=== PATIENT | male | born 1955 | race Caucasian/White ===

== ENCOUNTER 2020-02-12 11:15 | Outpatient (RCR) | payer MEDICARE ==
[2020-03-08] MEDS ORDERED: MTP25TSR PO (10:40)
[2020-03-08] MEDS ORDERED: SULF1TAB35 PO (10:40)
[2020-03-08] MEDS ORDERED: CLOP75TA28 PO (10:40)
[2020-03-08] MEDS ORDERED: ASPI-1238 PO (10:40)
[2020-03-08] MEDS ORDERED: ATOR80TA76 PO (10:40)
[2020-03-08] MEDS ORDERED: TMSL.4C PO (10:40)
[2020-03-10] MEDS ORDERED: HYOS0.1281 PO (13:09)
[2020-03-10] MEDS ORDERED: SULF1TAB35 PO (13:09)
[2020-03-10] MEDS ORDERED: TRAM50TA3 PO (13:09)
[2020-03-11] MEDS ORDERED: DOCU-238 PO (10:36)
[2020-03-11] MEDS ORDERED: ACET-2267 PO (10:36)
[2020-03-11] MEDS ORDERED: SULF1TAB35 PO (10:36)
[2020-03-11] MEDS ORDERED: CLOP75TA69 PO (10:39)
== END 2020-05-12 | disposition home or self-care (01) ==
LOC: LAB 11:15
PROVIDERS: ATTEND Family Medicine
DX: N20.0 Calculus of kidney (principal)
CPT/HCPCS: 88300

== ENCOUNTER → 2020-03-02 | Outpatient (CLI) | payer MEDICARE ==
--- NOTE | 2020-03-02 14:59 | Diagnostic Imaging Report ---
PROCEDURE: CT abdomen and pelvis without contrast. TECHNIQUE: Multiple contiguous axial images were obtained through the abdomen and pelvis without the use of intravenous contrast. Auto Exposure Controls were utilized during the CT exam to meet ALARA standards for radiation dose reduction. DATE: March 02, 2020. COMPARISON: None. INDICATION: 65-year-old male, gross hematuria. Difficulty urinating. FINDINGS: There are limitations for evaluation of the abdominal organs, neoplastic processes, abscess, and limited evaluation of the vasculature relating to the lack of intravenous contrast. There is a 3 mm pleurally based right middle lobe pulmonary nodule on axial image 4. The additional visualized portions of the lung bases are grossly clear. The heart is not enlarged. There is no identified pericardial effusion. The liver is normal in size and contour. The gallbladder is unremarkable. There is no intrahepatic or extrahepatic bile duct dilation. The main pancreatic duct is not abnormally dilated. Unremarkable appearance of the pancreatic parenchyma on noncontrast imaging evaluation. There are small accessory splenules present. The spleen is normal in size. The adrenal glands are unremarkable. There is a low-attenuation right renal lesion on axial image 32 measuring 11 mm in size with internal attenuation of 4 Hounsfield units. This is compatible with a benign cyst. There is a low-attenuation left renal lesion measuring 9 mm in size on axial image 34 with internal attenuation of 0 Hounsfield units also consistent with a benign cyst. The urinary collecting systems are not distended. There is no identified renal or ureteral stone. There is altered contour of the right posterior and lateral aspect of the urinary bladder at its inferior aspect with potential mass or hematoma in the bladder on axial image 79 measuring 4.5 x 5.0 cm in axial extent. There is prominent diverticulosis without evidence of acute diverticulitis. There is no evidence of acute appendicitis. There is a fat-containing umbilical hernia. There is a fat-containing right inguinal hernia. There is no free intraperitoneal air. There is no drainable fluid collection. There is no free pelvic fluid. There are atherosclerotic calcifications. There is no identified abnormally enlarged lymph node in the abdomen or pelvis which meets CT size criteria for adenopathy. There are degenerative changes of the spine. There is no identified acute bony abnormality. IMPRESSION: CT ABDOMEN AND PELVIS. 1. Abnormal contour of the right lateral and posterior aspect of the urinary bladder, particularly inferiorly with adjacent probable mass or hematoma in the urinary bladder which measures 5.0 x 4.5 cm in axial extent. Further evaluation with cystoscopy is recommended to evaluate for possibility of urinary bladder malignancy. 2. No identified renal or ureteral stone. No hydronephrosis. 3. Bilateral benign renal cysts. 4. 3 mm pleurally based right middle lobe pulmonary nodule. Dictated by: Dictated on workstation # [id number]
== END ==
LOC: RAD 12:58
PROVIDERS: ATTEND Urology
DX: N28.1 Cyst of kidney, acquired (principal); R31.0 Gross hematuria; R39.198 Other difficulties with micturition; R91.1 Solitary pulmonary nodule
CPT/HCPCS: 74176

== ENCOUNTER 2020-03-08 10:00 | Outpatient (RCR) | payer MEDICARE ==
[~2020-03-08] VITALS: Ht 172.7 cm; Wt 95.5 kg
[2020-03-08] MEDS ORDERED: MTP25TSR PO (10:40)
[2020-03-08] MEDS ORDERED: ATOR80TA76 PO (10:40)
[2020-03-08] MEDS ORDERED: SULF1TAB35 PO (10:40)
[2020-03-08] MEDS ORDERED: TMSL.4C PO (10:40)
[2020-03-08] MEDS ORDERED: CLOP75TA28 PO (10:40)
[2020-03-08] MEDS ORDERED: ASPI-983 PO (10:40)
== END 2020-03-08 10:49 | disposition home or self-care (01) ==
LOC: PREOP 10:00
PROVIDERS: ATTEND Urology
DX: Z01.818 Encounter for other preprocedural examination (principal); Z20.828 Contact with and (suspected) exposure to other viral communicable diseases
CPT/HCPCS: 87635

== ENCOUNTER 2020-03-10 06:07 | Day surgery (SDC) | payer MEDICARE, MEDICAID ==
[~2020-03-10] VITALS: Ht 172.7 cm; Wt 95.5 kg
[2020-03-10] VITALS (13 sets, daily range): BP systolic 123–174; BP diastolic 65–96
[~2020-03-10 06:07] MED LIST: ASPI-983 PO; ATOR80TA76 PO; CLOP75TA28 PO; MTP25TSR PO; SULF1TAB35 PO; TMSL.4C PO
--- OUTSIDE RECORDS SUMMARY | 2020-03-10 06:11 | XMS REPORT | Continuity of Care Document ---
Author Organization Unknown Address Unknown Phone Unavailable Allergies Active Description Code Type Severity Reaction Onset Reported/Identified Relationship to Patient Clinical Status Yes ibuprofen [id number] Drug Allergy Unknown N/A 01/14/2006 Medications There is no data. Problems Date Dx Coded Attending Type Code Diagnosis Diagnosed By 02/18/2020 FELIX HARRINGTON DO Ot N20.0 CALCULUS OF KIDNEY 03/04/2020 SABI MCNALLY, DANE Reid Ot N28.1 CYST OF KIDNEY, ACQUIRED 03/04/2020 SABI MCNALLY, DANE Reid Ot R31.0 GROSS HEMATURIA 03/04/2020 DANE CELESTIN MD Ot R39.1 98 OTHER DIFFICULTIES WITH MICTURITION 03/04/2020 DANE CELESTIN MD Ot R91.1 SOLITARY PULMONARY NODULE Procedures There is no data. Results Test Result Range Measurement of weight of kidney stone - 02/12/20 11:20 Measurement of weight of kidney stone 2 % NRG Kidney stone composition determination See Note NRG Count of number of calculi 1 NRG Size of stone 1 to 4 NRG Coronavirus SARS-CoV-2 SO 2018 - 0 08:14 Coronavirus Ab [Units/volume] in Serum Negative Negative Encounters ACCT No. Visit Date/Time Discharge Status Pt. Type Provider Facility Loc./Unit Complaint [id number] 10/22/2019 10:56:00 10/22/2019 23:59 :00 DIS Outpatient Akua Arellano [id number] 03/08/2020 10:00:00 10:49:00 DIS Outpatient DANE CELESTIN MD [facility] PREOP BLADDER TUMOR [id number] 03/02/2020 12:58:00 23:59:59 CLS Outpatient DANE CELESTIN MD [facility] RAD GROSS HEMATURIA [id number] 02/12/2020 11:15:00 23:59:59 CLS Outpatient FELIX HARRINGTON DO [facility] LAB KIDNEY STONE [id number] 03/10/2020 08:00:00 P EN Lizbeth CELESTIN MD, DANE Reid [facility] BLADDER TUMOR
[2020-03-10] MEDS ORDERED: LACTATED RINGERS 1,000 ML IV PRN (06:19)
[2020-03-10] MEDS ORDERED: cefTRIAXone FOR IV USE 1,000 MG in WATER (STERILE) FOR INJECTION 10 ML IV ONE (06:30)
[2020-03-10] MEDS ORDERED: LACTATED RINGERS 1,000 ML IV ONE (06:37)
[2020-03-10] MEDS ORDERED: ONDANSETRON 4 MG/2 ML (SDV) Z0FRAN ONE ×2 (06:37→10:12)
[2020-03-10] MEDS ORDERED: proPOfol 200 MG/20 ML (DIPRIVAN) VIAL IV ONE (06:37)
[2020-03-10] MEDS ORDERED: fentaNYL INJECTION 100 MCG/2 ML AMP ONE (06:37)
[2020-03-10] MEDS ORDERED: LIDOCAINE PF 2% 5 ML (XYLOCAINE) VIAL ONE (06:37)
[2020-03-10] MEDS ORDERED: MIDAZOLAM 2 MG/2 ML (VERSED) VIAL ONE (06:37)
[2020-03-10] MEDS ORDERED: DEXAMETHASONE 10 MG/ML (DECADRON) 1 ML VIAL ONE (06:42)
[2020-03-10] MEDS ORDERED: SEVOFLURANE (ULTANE) 15 ML INHAL SOLN ONE ×6 (06:42→09:45)
[2020-03-10 06:57] LABS: BASOPHILS % (AUTO) 0 % (0-10); EOSINOPHILS # (AUTO) 0.2 10^3/uL (0.0-0.3); EOSINOPHILS % (AUTO) 4 % (0-10); HEMATOCRIT 43 % (40-54); HEMOGLOBIN 14.3 G/DL (13.3-17.7); LYMPHOCYTES # (AUTO) 1.7 X 10^3 (1.0-4.0); LYMPHOCYTES % (AUTO) 26 % (12-44); MEAN CORPUSCULAR HEMOGLOBIN 31 PG (25-34); MEAN CORPUSCULAR HGB CONC 34 G/DL (32-36); MEAN CORPUSCULAR VOLUME 93 FL (80-99); MEAN PLATELET VOLUME 9.2 FL (7.4-10.4); MONOCYTES # (AUTO) 0.9 X 10^3 (0.0-1.0); MONOCYTES % (AUTO) 13 % (0-12); NEUTROPHILS # (AUTO) 3.7 X 10^3 (1.8-7.8); NEUTROPHILS % (AUTO) 57 % (42-75); PLATELET COUNT 247 10^3/uL (130-400); RED CELL DISTRIBUTION WIDTH 12.3 % (10.0-14.5); WHITE BLOOD COUNT 6.6 10^3/uL (4.3-11.0)
--- NOTE | 2020-03-10 08:01 | Progress Note-Pre Operative ---
Pre-Operative Progress Note H&P Reviewed The H&P was reviewed, patient examined and no changes noted. Date Seen by Provider: Mar 10, 2020 Time Seen by Provider: 08:00 Date H&P Reviewed: Mar 10, 2020 Time H&P Reviewed: 08:00 Pre-Operative Diagnosis: LARGE BLADDER TUMOR DANE CELESTIN MD Mar 10, 2020 08:01
--- NOTE | 2020-03-10 08:06 | Progress Note-Post Operative ---
Post-Operative Progess Note Surgeon (s)/Automatic Car Wash Attendant (s) Surgeon DANE CELESTIN MD Automatic Car Wash Attendant: NONE Pre-Operative Diagnosis LARGE BLADDER TUMOR Post-Operative Diagnosis SAME Procedure & Operative Findings Date of Procedure 03/10/20 Procedure Performed/Findings TURBT Anesthesia Type GENERAL Estimated Blood Loss Estimated blood loss (mL): LESS THAN 50CC Specimens/Packing Specimens Removed BLADDER TUMOR CHIPS AND BASES Packing: NONE DANE CELESTIN MD Mar 10, 2020 08:06
--- NOTE | 2020-03-10 08:09 | Discharge Inst-Urology ---
Discharge Inst-Urology Reconcile Patient Problems Problems Reviewed?: Yes Final Diagnosis LARGE BLADDER TUMOR Patient Instructions/Follow Up Plan/Assessment/Instructions Please make appointment to been seen in office in 2 weeks. Rest till then De Souza to CBI with sterile water, hand irrigate PRN Please call me in couple hours with update on patient and urine status In 72 hours, if no bleeding, may resume ASA and Plavix, hold if starts bleeding Keep bowels soft and moving Increase oral fluids for 48 hours and then as needed. Diet as tolerated. If questions or concerns contact your physician Or seek help at emergency department. DANE CELESTIN MD Mar 10, 2020 08:09
[2020-03-10] MEDS ORDERED: ROCURONIUM 10 MG/ML 5 ML SYRINGE IV ONE (08:27)
[2020-03-10] MEDS ORDERED: NEOSTIGMINE 3 MG/3 ML VIAL ONE (08:34)
[2020-03-10] MEDS ORDERED: GLYCOPYRROLATE 0.2 MG/ML (ROBINUL) 2 ML VIAL ONE (08:34)
[2020-03-10] MEDS ORDERED: MEPERIDINE (DEMEROL) INJ 50 MG/ML IVP ONE (10:00)
[2020-03-10] MEDS ORDERED: morphine INJ 10 MG/ML 1ML (SYR OR VIAL) IVP ONE (10:00)
[2020-03-10] MEDS: ONDANSETRON 4 MG/2 ML (SDV) Z0FRAN IVP PRN ×2 (10:14→10:38)
[2020-03-10] MEDS ORDERED: METOCLOPRAMIDE INJ 10 MG/2 ML (REGLAN) ONE (10:51)
[2020-03-10] MEDS ORDERED: FAMOTIDINE 20MG/2ML IV (PEPCID) ONE (10:52)
--- NOTE | 2020-03-10 10:58 | OPERATIVE REPORT ---
DATE OF SERVICE: 03/10/2020 PREOPERATIVE DIAGNOSIS: Large bladder tumor. POSTOPERATIVE DIAGNOSIS: Large bladder tumor. OPERATION PERFORMED: Transurethral resection of bladder tumor. SURGEON: Dane Celestin MD. ANESTHESIA: General. COMPLICATIONS: None. DESCRIPTION OF PROCEDURE: Under satisfactory general anesthesia and the patient in lithotomy position, genitalia were prepped and draped in the usual sterile fashion. Urethra was dilated with Liam sound to #30 Ivorian to accommodate 27-Ivorian Stringer resectoscope. Again, visualized the large tumor occupying the whole right half of the bladder and masking the right ureteral orifice, which later on with resection until the end of the surgery was away from the tumor inserted into the bladder and was preserved at all time with clear efflux. The tumor was completely resected as grossly seen as possible. Multiple areas of the base were obtained at different spots to be sent for staging. Bleeders were cauterized and hemostasis was satisfactory. Estimated blood loss was less than 50 mL, none of which was replaced. The resectoscope was then removed and a 22-Ivorian three-way 30 mL balloon catheter was inserted. The balloon was inflated with 30 mL, connected to continuous bladder irrigation with sterile water, the return of which was pretty clear. The patient tolerated the procedure and anesthesia well and was sent to the recovery room in stable condition. PLAN: We will see how he is recovering from the procedure in couple of hours and decide about possible admission if needed or dismissal to home. In regard to pathology, we will await and see staging and decide the next step of action. This was fully explained to the patient. Job ID: [id number] DocumentID: [id number] Dictated Date: 03/10/2020 10:12:11 Elementary Math Tutor Date: 03/10/2020 10:57:49 Dictated By: DANE CELESTIN MD
[2020-03-10] MEDS ORDERED: FAMOTIDINE 20MG/2ML IV (PEPCID) IVP ONE (11:00)
[2020-03-10] MEDS ORDERED: METOCLOPRAMIDE INJ 10 MG/2 ML (REGLAN) IVP ONE (11:00)
--- NOTE | 2020-03-10 12:00 | Anesthesia-General Post-Op ---
General Patient Condition Mental Status/LOC: Same as Preop Cardiovascular: Satisfactory Nausea/Vomiting: Absent Respiratory: Satisfactory Pain: Controlled Complications: Absent Post Op Complications Complications Patient did complain of some chest discomfort. EKG obtained. Nothing significant noted. Patient stated pain better after belching. Follow Up Care/Instructions Patient Instructions Followed up with patient in SDC. Stated pain is better. Informed patient if he feels he his having chest pain to come to the hospital. Anesthesia/Patient Condition Patient Condition Patient is doing well, no complaints other than above, stable vital signs, no apparent adverse anesthesia problems. No complications reported per nursing. DIANN WOLFF CRNA Mar 10, 2020 12:00
[2020-03-10] MEDS ORDERED: TRAM50TA3 PO (13:09)
[2020-03-10] MEDS ORDERED: SULF1TAB35 PO (13:09)
[2020-03-10] MEDS ORDERED: HYOS0.1281 PO (13:09)
[2020-03-11] MEDS ORDERED: SULF1TAB35 PO (10:36)
[2020-03-11] MEDS ORDERED: DOCU-238 PO (10:36)
[2020-03-11] MEDS ORDERED: ACET-2267 PO (10:36)
[2020-03-11] MEDS ORDERED: CLOP75TA69 PO (10:39)
== END 2020-03-10 13:35 | disposition home or self-care (01) ==
LOC: SDC 06:07
PROVIDERS: ATTEND Urology
DX: C67.9 Malignant neoplasm of bladder, unspecified (principal); I10 Essential (primary) hypertension; M06.9 Rheumatoid arthritis, unspecified; Z79.899 Other long term (current) drug therapy; Z88.5 Allergy status to narcotic agent; Z95.5 Presence of coronary angioplasty implant and graft
CPT/HCPCS: 36415; 85025; 86850; 86900; 86901; 87081; 88307; 93005

== ENCOUNTER 2020-03-10 23:44 | Observation (INO) | payer MEDICARE, MEDICAID ==
[~2020-03-10] VITALS: Ht 172.7 cm; Wt 95.0 kg
[~2020-03-10 23:44] MED LIST changes: +HYOS0.1281 PO; +TRAM50TA3 PO
--- NOTE | 2020-03-10 23:50 | NUR ---
patient box has slight oozing of sanguineous drainage noted at tip of penis, cathter is a tripple lumen, one lumen is open. This RN found sterile cathter plug, lumen flushed with 60 cc sterile water, flushed easily, 35cc removed pink in color. lumen plugged. box bag removed, lumen flushed with 60 cc sterile water. 60cc of red water/urine removed with small to medium clots. box bag reconnected. draining easily, pink in color. patient concered that the box will clot again. patient requesting to stay. dr manning notified.
--- OUTSIDE RECORDS SUMMARY | 2020-03-10 23:50 | XMS REPORT | Continuity of Care Document ---
Author Organization Unknown Address Unknown Phone Unavailable Allergies Active Description Code Type Severity Reaction Onset Reported/Identified Relationship to Patient Clinical Status Yes ibuprofen [id number] Drug Allergy Unknown N/A 01/14/2006 Medications There is no data. Problems Date Dx Coded Attending Type Code Diagnosis Diagnosed By 02/18/2020 FELIX HARRINGTON DO Ot N20.0 CALCULUS OF KIDNEY 03/04/2020 SABI MCNALLY, DANE Reid Ot N28.1 CYST OF KIDNEY, ACQUIRED 03/04/2020 SABI MCNALLY, DANE Reid Ot R31.0 GROSS HEMATURIA 03/04/2020 SABI MCNALLY, DANE Reid Ot R39.1 98 OTHER DIFFICULTIES WITH MICTURITION 03/04/2020 SABI MCNALLY, DANE Redi Ot R91.1 SOLITARY PULMONARY NODULE Procedures There [...] Coronavirus Ab [Units/volume] in Serum Negative Negative Complete blood count (CBC) with automate d white blood cell (WBC) differential - 03/10/20 06:38 Blood leukocytes automated count (number/volume) 6.6 10*3/uL 4.3-11.0 Blood erythrocytes automated count (number/volume) 4.57 10*6/uL 4.35-5.85 Venous blood hemoglobin measurement (mass/volume) 14.3 g/dL 13.3-17.7 Blood hematocrit (volume fraction) 43 % 40-54 Automated erythrocyte mean corpuscular volume 93 [ foz_us] 80-99 Automated erythrocyte mean corpuscular h emoglobin (mass per erythrocyte) 31 pg 25-34 Automated erythrocyte mean corpuscular h emoglobin concentration measurement (mass/volume) 34 g/dL 32-36 Automated erythrocyte distribution width ratio 12. 3 % 10.0- 14.5 Automated blood platelet count (count/volume) 247 10*3/uL 130-400 Automated blood platelet mean volume measurement 9.2 [foz_us] 7.4-10.4 Automated blood neutrophils/100 leukocytes 57 % 42-75 Automated blood lymphocytes/100 leukocytes 26 % 12-44 Blood monocytes/100 leukocytes 13 % 0-12 Automated blood eosinophils/100 leukocytes 4 % 0-10 Automated blood basophils/100 leukocytes 0 % 0-10 Blood neutrophils automated count (number/volume) 3.7 10*3 1.8-7.8 Blood lymphocytes automated count (number/volume) 1.7 10*3 1.0-4.0 Blood monocytes automated count (number/volume) 0. 9 10*3 0.0-1.0 Automated eosinophil count 0.2 10*3/uL 0 .0-0.3 Automated blood basophil count (count/volume) 0.0 10*3/uL 0.0-0.1 Blood type T Indirect antibody screen [facility] - 03/10/20 06:38 WRISTBAND NUMBER [id number] NRG ABO+Rh group AP NRG Blood group antibody screen NEGATIVE NR G Encounters ACCT No. Visit Date/Time Discharge Status Pt. Type Provider Facility Loc./Unit Complaint [id number] 10/22/2019 10:56:00 10/22/2019 23:59 :00 DIS Outpatient Akua Arellano [id number] 03/08/2020 10:00:00 10:49:00 DIS Outpatient DANE CELESTIN MD [facility] PREOP BLADDER TUMOR [id number] 03/02/2020 12:58:00 23:59:59 CLS Outpatient DANE CELESTIN MD [facility] RAD GROSS HEMATURIA [id number] 02/12/2020 11:15:00 23:59:59 CLS Outpatient FELIX HARRINGTON DO [facility] LAB KIDNEY STONE [id number] 03/10/2020 08:00:00 P EN Preadmit DANE CELESTIN MD Via [facility] SDC BLADDER TUMOR
--- NOTE | 2020-03-10 23:57 | ED GU-Male ---
General Stated Complaint: CATH PROBLEMS Source: patient History of Present Illness Date Seen by Provider: Mar 10, 2020 Time Seen by Provider: 23:48 Initial Comments PT ARRIVES VIA POV FROM HOME PT HAD SURGERY THIS MORNING BY DR. CELETSIN--RESECTION OF BLADDER TUMOR HAS [address] STATES HE EMPTIED THE CHAUDHRY BAG AROUND 2200 AND DRAINED APPROXIMATELY 2500 ML URINE AT THAT TIME HAS ONLY DRAINED ABOUT 200 ML SINCE THEN AND HAS QUIT DRAINING C/O ALOT OF PRESSURE IN BLADDER SLIGHT NAUSEA, NO VOMITING NO FEVER IS CURRENTLY ON ANTIBIOTICS--DANA HAS NOT TAKEN ANY PAIN MEDICATIONS OR LEVSIN, THAT WAS PRESCRIBED FOR HIM HAS AN APPOINTMENT AT [address] CELESTIN Allergies and Home Medications Allergies Coded Allergies: Ibuprofen (Verified Allergy, Unknown, 01/14/06) Home Medications Atorvastatin Calcium 80 Mg Tablet, 80 MG PO DAILY, (Reported) Hyoscyamine Sulfate 0.125 Mg Tablet, 1-2 TAB PO Q4H PRN for SPASMS Prescribed by: ONEAL MAHAJAN on 03/10/20 1309 Metoprolol Succinate 25 Mg Tab.er.24h, 12.5 MG PO DAILY, (Reported) take 1/2 of 25m tab Sulfamethoxazole/Trimethoprim 1 Each Tablet, 1 EACH PO BID, (Reported) Sulfamethoxazole/Trimethoprim 1 Each Tablet, 1 EACH PO BID Prescribed by: ONEAL MAHAJAN on 03/10/20 1309 Tamsulosin HCl 0.4 Mg Cap, 0.4 MG PO DAILY, (Reported) Tramadol HCl 50 Mg Tablet, 1-2 TAB PO Q4H PRN for PAIN-MILD (1-4) Prescribed by: ONEAL MAHAJAN on 03/10/20 1309 Patient Home Medication List Home Medication List Reviewed: Yes Review of Systems Review of Systems Constitutional: no symptoms reported Genitourinary: see HPI Past Fktvyda-Qgnaew-Nxzfpx Hx Patient Social History Former Smoker, Quit: Mar 08, 2013 Recent Hopitalizations: No Seasonal Allergies Seasonal Allergies: Yes Past Medical History Surgeries: Yes (NECK SURGERY;CARDIAC CATH-STENTS X 4; TURBT 03/10/20 ) Bladder Surgery, Cardiac, Coronary Stent Respiratory: No Cardiac: Yes (CARDIAC CATH-STENTS X 4--2013) Coronary Artery Disease, Heart Attack, Hypertension Neurological: No Genitourinary: Yes (TURBT 03/10/[address] CELESTIN) Gastrointestinal: No Musculoskeletal: Yes Arthritis, Chronic Back Pain Endocrine: No HEENT: Yes (glasses, no teeth) Cancer: No Psychosocial: No Integumentary: No Blood Disorders: No Physical Exam Vital Signs Vital Signs - First Documented 03/10/20 23:45 Temp 36.6 Pulse 113 Resp 20 B/P (MAP) 160/80 (106) Pulse Ox 94 O2 Delivery Room Air Capillary Refill : Height, Weight, BMI Height: '" Weight: lbs. oz. kg; 32.01 BMI Method: General Appearance: WD/WN, no apparent distress Gastrointestinal: tenderness (SUPRAPUBIC TENDERNESS) Male: other (3 WAY CH[address] IN [address], NOT DRAINING AT THIS TIME.) Neurologic/Psychiatric: no motor/sensory deficits, alert, normal mood/affect Skin: normal color, warm/dry Progress/Results/Core Measures Suspected Sepsis SIRS Temperature: Pulse: Respiratory Rate: Blood Pressure / Mean: Results/Orders My Orders Orders - KORTNEY URIOSTEGUI DO Ondansetron Oral Dissolve Tab (Zofran (03/11/20 00:15) Pantoprazole Tablet (Protonix Tablet) (03/11/20 00:15) Hyoscyamine Sl Tablet (Levsin Sl Tablet) (03/11/20 00:45) Tramadol Tablet (Ultram Tablet) (03/11/20 00:45) Ed Iv/Invasive Line Start (03/11/20 01:23) Basic Metabolic Panel (03/11/20 01:23) Cbc With Automated Diff (03/11/20 01:23) Ed Iv/Invasive Line Start (03/11/20 01:23) Medications Given in ED Current Medications Medications Dose Ordered Sig/Jennifer Route Start Time Stop Time Status Last Admin Dose Admin Hyoscyamine Sulfate 0.25 mg ONCE ONCE PO 03/11/20 00:45 03/11/20 00:46 DC 03/11/20 00:41 0.25 MG Ondansetron HCl 4 mg ONCE ONCE PO 03/11/20 00:15 03/11/20 00:16 DC 03/11/20 00:15 4 MG Pantoprazole Sodium 40 mg ONCE ONCE PO 03/11/20 00:15 03/11/20 00:16 DC 03/11/20 00:15 40 MG Tramadol HCl 50 mg ONCE ONCE PO 03/11/20 00:45 03/11/20 00:46 DC 03/11/20 00:41 50 MG Vital Signs/I&O 03/10/20 23:45 Temp 36.6 Pulse 113 Resp 20 B/P (MAP) 160/80 (106) Pulse Ox 94 O2 Delivery Room Air Capillary Refill : Progress Note : Progress Note RN EASILY IRRIGATED CHAUDHRY WITH IMMEDIATE RETURN OF CLOT AND THEN IMMEDIATE DRAINING OF FAIRLY CLEAR URINE--400 ML CONTINUOUS BLADDER IRRIGATION WAS DONE WITH GOOD RETURN OF FAIRLY CLEAR/PINK TINGED URINE, NO FURTHER CLOTS PT OBSERVED AFTER IRRIGATION AND CHAUDHRY CONTINUES TO DRAIN BLOODY URINE, BUT NO CLOTS PT WITH INCREASING ANXIETY DURING ER STAY--DOES NOT WANT TO GO HOME C/O NAUSEA--GIVEN ZOFRAN AND PROTONIX C/O BACK AND LOWER ABDOMINAL PAIN--GIVEN LEVSIN AND ULTRAM PT DOES NOT FEEL COMFORTABLE GOING HOME AND WANTS TO BE ADMITTED Departure Communication (Admissions) 0116--SPOKE WITH DR. CELESTIN. ACCEPTS PT FOR ADMIT Impression Primary Impression: Obstructed Chaudhry catheter Additional Impression: S/P RESECTION OF BLADDER TUMOR Disposition: ADMITTED INPATIENT Condition: Improved Admissions Decision to Admit Reason: Admit from ER (General) Decision to Admit/Date: Mar 11, 2020 Time/Decision to Admit Time: 01:15 Departure-Patient Inst. Referrals: FELIX HARRINGTON DO (PCP/Family) Primary Care Physician KORTNEY URIOSTEGUI DO Mar 10, 2020 23:57
--- NOTE | 2020-03-11 00:05 | NUR ---
sterile water irrigation per dr manning verbal order started at slow rate. patient tolerating. light pink in color
[2020-03-11] MEDS ORDERED: PANTOPRAZOLE 40 MG (PROTONIX) TAB PO ONE (00:15)
[2020-03-11] MEDS ORDERED: ONDANSETRON 4 MG (ZOFRAN) ORAL DISSOLVE TAB PO ONE (00:15)
--- NOTE | 2020-03-11 00:35 | NUR ---
patient complaint of filling "full" urine output prior to irrigation was 400, irrigation stopped total 200 infused, 750 in box bag upon completion. dr manning notified of patients complaint. patient sitting on side of bed, new box bag applied, third lumen plugged.
[2020-03-11] MEDS ORDERED: HYOSCYAMINE 0.125 MG (LEVSIN) TAB PO ONE (00:45)
--- OUTSIDE RECORDS SUMMARY | 2020-03-11 01:41 | XMS REPORT | Continuity of Care Document ---
Author Organization Unknown Address Unknown Phone Unavailable Allergies Active Description Code Type Severity Reaction Onset Reported/Identified Relationship to Patient Clinical Status Yes ibuprofen [id number] Drug Allergy Unknown N/A 01/14/2006 Medications There [...] DIFFICULTIES WITH MICTURITION 03/04/2020 SABI MCNALLY, DANE Reid Ot R91.1 SOLITARY PULMONARY NODULE Procedures There [...] 0.0-0.1 Blood type T Indirect antibody screen [facility] - 03/10/20 06:38 WRISTBAND NUMBER [id number] NRG ABO+Rh group AP NRG Blood group antibody screen NEGATIVE NR G Encounters ACCT No. Visit Date/Time Discharge Status Pt. Type Provider Facility Loc./Unit Complaint [id number] 10/22/2019 10:56:00 10/22/2019 23:59 :00 DIS Outpatient Akua Aerllano [id number] 03/08/2020 10:00:00 10:49:00 DIS Outpatient DANE CELESTIN MD [facility] PREOP BLADDER TUMOR [id number] 03/02/2020 12:58:00 23:59:59 CLS Outpatient DANE CELESTIN MD [facility] RAD GROSS HEMATURIA [id number] 02/12/2020 11:15:00 23:59:59 CLS Outpatient FELIX HARRINGTON DO [facility] LAB KIDNEY STONE [id number] 03/10/2020 08:00:00 P EN Preadmit DANE CELESTIN MD [facility] SDC BLADDER TUMOR
[2020-03-11 01:46] LABS: BASOPHILS % (AUTO) 0 % (0-10); EOSINOPHILS % (AUTO) 0 % (0-10); HEMATOCRIT 38 % (40-54); HEMOGLOBIN 13.3 G/DL (13.3-17.7); LYMPHOCYTES # (AUTO) 0.9 X 10^3 (1.0-4.0); LYMPHOCYTES % (AUTO) 6 % (12-44); MEAN CORPUSCULAR HEMOGLOBIN 31 PG (25-34); MEAN CORPUSCULAR HGB CONC 35 G/DL (32-36); MEAN CORPUSCULAR VOLUME 90 FL (80-99); MONOCYTES # (AUTO) 1.3 X 10^3 (0.0-1.0); MONOCYTES % (AUTO) 9 % (0-12); NEUTROPHILS # (AUTO) 13.2 X 10^3 (1.8-7.8); NEUTROPHILS % (AUTO) 86 % (42-75); PLATELET COUNT 264 10^3/uL (130-400); WHITE BLOOD COUNT 15.4 10^3/uL (4.3-11.0)
[2020-03-11 01:55] VITALS: BP 146/71
[2020-03-11 01:55] LABS: CHLORIDE 94 MMOL/L (98-107); POTASSIUM 4.5 MMOL/L (3.6-5.0)
[2020-03-11 01:56] LABS: GLUCOSE 127 MG/DL (70-105)
[2020-03-11 01:58] LABS: CARBON DIOXIDE 19 MMOL/L (21-32)
[2020-03-11 02:00] LABS: CREATININE SERUM 1.07 MG/DL (0.60-1.30); GFR ESTIMATED > 60
[2020-03-11 02:01] LABS: BUN/CREATININE RATIO 14
[2020-03-11 02:07] LABS: SODIUM 123 MMOL/L (135-145)
--- NOTE | 2020-03-11 02:09 | NUR ---
CRITICAL LAB RESULT RECEIVED SODIUM 123. DR. CELESTIN NOTIFIED. ORDERS TO SWITCH IV FLUIDS TO NS AT 100 ML/HR.
[2020-03-11] MEDS ORDERED: NS IV 1000 ML 1,000 ML ONE (02:12)
[2020-03-11] MEDS: ONDANSETRON 4 MG/2 ML (SDV) Z0FRAN IV PRN ×2 (02:21→08:36)
[2020-03-11] MEDS ORDERED: ONDANSETRON 4 MG/2 ML (SDV) Z0FRAN ONE (02:21)
[2020-03-11 02:40] LABS: ANISOCYTOSIS SLIGHT; LYMPHOCYTES % (MANUAL) 6 %; MONOCYTES % (MANUAL) 10 %; NEUTROPHILS % (MANUAL) 84 %
[2020-03-11] MEDS ORDERED: NS IV 1000 ML 1,000 ML IV SCH (03:15)
[2020-03-11] MEDS ORDERED: HYOSCYAMINE 0.125 MG (LEVSIN) TAB SL PRN (03:15)
[2020-03-11] MEDS ORDERED: 1/2 NS IV SOLUTION 1,000 ML IV SCH (03:15)
[2020-03-11] MEDS ORDERED: fentaNYL INJECTION 100 MCG/2 ML AMP IV PRN (03:15)
[2020-03-11 04:52] VITALS: BP 126/78
--- NOTE | 2020-03-11 05:03 | NUR ---
ANDI JUAREZ admitted to room 410-1, with an admitting diagnosis of S/P TURBT AND CHAUDHRY CATHETER OBSTRUCTION, on 03/11/20 from [facility], accompanied by STAFF.ANDI JUAREZ introduced to surroundings, call light, bed controls, phone, TV, temperature control, lights, meal times, smoking policy, visitor policy, side rail policy, bathrooms and showers. Patient Rights given to patient in the handbook. ANDI JUAREZ verbalizes understanding that [facility] is not responsible for the loss or damage to any personal effects or valuables that are kept in the patients posession during their hospitalization. Patient and/or family were informed about the Rapid Response Team and its purpose. Addendum: 03/11/20 at 0505 by SOHAN MILNER RN TIME ENTERED INCORRECTLY. PATIENT ARRIVED TO ROOM ON 03/11/2020 AT 0155.
[2020-03-11] MEDS ORDERED: TRIM/SULFAMETH 160/800 (SEPTRA DS) TAB PO SCH (08:00)
[2020-03-11 08:25] VITALS: BP 115/77
[2020-03-11] MEDS ORDERED: PANTOPRAZOLE 40 MG (PROTONIX) VIAL IV SCH (09:00)
--- NOTE | 2020-03-11 09:49 | Progress Note - Urology ---
Progress Note-Urology Progress Notes/Assess & Plan Progress/Assessment & Plan URINE CLEAR. NA 123. DC CHAUDHRY Final Diagnosis GROSS HEAMTURIA AND CLOT RETENTION DANE CELESTIN MD Mar 11, 2020 09:49
[2020-03-11] MEDS ORDERED: SULF1TAB35 PO (10:36)
[2020-03-11] MEDS ORDERED: DOCU-238 PO (10:36)
[2020-03-11] MEDS ORDERED: ACET-2267 PO (10:36)
[2020-03-11] MEDS ORDERED: CLOP75TA69 PO (10:39)
--- NOTE | 2020-03-11 10:39 | NUR ---
SPOKE WITH PT AND WENT THRU THE EXT MED HISTORY TO COMPLETE THE MED REC CLOPIDOGREL 75MG: PT HAS NOT HAD A DOSE SINCE 03-03-2020 IN ANTICIPATION OF THE SURGERY HE HAD YESTERDAY OTC MEDS: TYLENOL DOCUSATE
[2020-03-11 12:28] LABS: BASOPHILS % (AUTO) 0 % (0-10); EOSINOPHILS % (AUTO) 0 % (0-10); HEMATOCRIT 42 % (40-54); HEMOGLOBIN 14.2 G/DL (13.3-17.7); LYMPHOCYTES # (AUTO) 1.4 X 10^3 (1.0-4.0); LYMPHOCYTES % (AUTO) 12 % (12-44); MEAN CORPUSCULAR HEMOGLOBIN 31 PG (25-34); MEAN CORPUSCULAR HGB CONC 34 G/DL (32-36); MEAN CORPUSCULAR VOLUME 91 FL (80-99); MONOCYTES # (AUTO) 1.8 X 10^3 (0.0-1.0); MONOCYTES % (AUTO) 16 % (0-12); NEUTROPHILS # (AUTO) 8.5 X 10^3 (1.8-7.8); NEUTROPHILS % (AUTO) 73 % (42-75); PLATELET COUNT 240 10^3/uL (130-400); RED CELL DISTRIBUTION WIDTH 12.5 % (10.0-14.5); WHITE BLOOD COUNT 11.7 10^3/uL (4.3-11.0)
--- NOTE | 2020-03-11 12:30 | NUR ---
VOIDED 500 [address]. PINKISH URINE. ABEBE. WELL 3 GLASS TEST STARTED PER DR. CAMEJO REQUEST.
[2020-03-11 12:31] VITALS: BP 134/75
[2020-03-11] MEDS ORDERED: ANTACID SUSP 30 ML UDC (MYLANTA) PO PRN (12:45)
[2020-03-11] MEDS ORDERED: PANTOPRAZOLE 40 MG (PROTONIX) VIAL IV NR (12:45)
[2020-03-11 12:51] LABS: ALANINE AMINOTRANSFERASE 47 U/L (0-55); ALBUMIN 3.9 GM/DL (3.2-4.5); ALKALINE PHOSPHATASE 88 U/L (40-136); BILIRUBIN,TOTAL 0.5 MG/DL (0.1-1.0); BUN/CREATININE RATIO 13; CALCIUM 8.2 MG/DL (8.5-10.1); CARBON DIOXIDE 19 MMOL/L (21-32); CHLORIDE 105 MMOL/L (98-107); CREATININE SERUM 1.08 MG/DL (0.60-1.30); GFR ESTIMATED > 60; GLUCOSE 109 MG/DL (70-105); POTASSIUM 4.8 MMOL/L (3.6-5.0); SODIUM 132 MMOL/L (135-145); TOTAL PROTEIN 6.4 GM/DL (6.4-8.2)
--- NOTE | 2020-03-11 13:00 | NUR ---
VOIDED SL DARKER PINK/REDDISH URINE. DR. CELESTIN HERE AND SAW RESULTS.
[2020-03-11 13:30] VITALS: BP 134/75
--- NOTE | 2020-03-11 13:30 | NUR ---
ANDI JUAREZ demonstrates understanding of discharge instructions and accurately returns instructions upon questioning. Copy of Post-Discharge Instructions given to PT. ANDI JUAREZ is able to manage continuing needs after discharge. Patients belongings returned to PT. Patient discharged from [facility] on 03/11/20 at 1330. ANDI JUAREZ left floor via W/C, accompanied by STAFF AND NEIGHBOR AND AUTO.
--- NOTE | 2020-03-11 13:34 | HISTORY AND PHYSICAL ---
DATE OF SERVICE: CHIEF COMPLAINT: Gross hematuria with clot retention and blocked catheter. SUMMARY: A 65-year-old white man, who on the morning of his admission underwent a transurethral resection of a pretty enlarged tumor in the bladder. He went home with the catheter at his request. The catheter was got obstructed by clots and hematuria, he presented to the emergency room, the irrigation opened up the catheter. CBI started and the patient is being admitted for further management accordingly. The rest of the history and physical as per preoperative history and physical. IMPRESSION: Gross hematuria with clot retention and obstructed catheter. PLAN: CBI and manage accordingly. Job ID: [id number] DocumentID: [id number] Dictated Date: 03/11/2020 09:55:21 Nuclear Reactor Operator Date: 03/11/2020 10:09:08 Dictated By: DANE CELESTIN MD
--- OUTSIDE RECORDS SUMMARY | 2020-03-21 14:50 | XMS REPORT | Continuity of Care Document ---
Author Organization Unknown Address Unknown Phone Unavailable Allergies Active Description Code Type Severity Reaction Onset Reported/Identified Relationship to Patient Clinical Status Yes ibuprofen [id number] Drug Allergy Unknown N/A 03/11/2020 Medications There is no data. Problems Date [...] CELESTIN MD Ot R91.1 SOLITARY PULMONARY NODULE 03/08/2020 DANE CELESTIN MD Ot Z01.8 18 ENCOUNTER FOR OTHER PREPROCEDURAL EXAMIN 03/08/2020 DANE CELESTIN MD, Ot Z20.8 28 CONTACT W AND EXPOSURE TO OTH VIRAL COMM 03/10/2020 FELIX HARRINGTON DO Ot N20.0 CALCULUS OF KIDNEY 03/10/2020 SABI MCNALLY, DANE Reid Ot N28.1 CYST OF KIDNEY, ACQUIRED 03/10/2020 SABI MCNALLY, DANE Reid Ot R31.0 GROSS HEMATURIA 03/10/2020 SABI MCNALLY, DANE Reid Ot R39.1 98 OTHER DIFFICULTIES WITH MICTURITION 03/10/2020 SABI MCNALLY, DANE Reid Ot R91.1 SOLITARY PULMONARY NODULE 03/10/2020 JUANY VILLANUEVA, FELIX Reid Ot N20.0 CALCULUS OF KIDNEY 03/11/2020 FELIX HARRINGTON DO Ot N20.0 CALCULUS OF KIDNEY 03/11/2020 SABI MCNALLY, DANE Reid Ot N28.1 CYST OF KIDNEY, ACQUIRED 03/11/2020 SABI MCNALLY, DANE Reid Ot R31.0 GROSS HEMATURIA 03/11/2020 DANE CELESTIN MD Ot R39.1 98 OTHER DIFFICULTIES WITH MICTURITION 03/11/2020 DANE CELESTIN MD Ot R91.1 SOLITARY PULMONARY NODULE 03/11/2020 DANE CELESTIN MD Ot G89.2 9 OTHER CHRONIC PAIN 03/11/2020 DANE CELESTIN MD Ot I10 ESSENTIAL (PRIMARY) HYPERTENSION 03/11/2020 DANE CELESTIN MD, Ot I25.1 0 ATHSCL HEART DISEASE OF [place] CORONARY 03/11/2020 DANE CELESTIN MD, Ot M19.9 0 UNSPECIFIED OSTEOARTHRITIS, UNSPECIFIED 03/11/2020 DANE CELESTIN MD, Ot M54.5 LOW BACK PAIN 03/11/2020 DANE CELESTIN MD, Ot R31.0 GROSS HEMATURIA 03/11/2020 DANE CELESTIN MD, Ot T83.098A [facility] COMPL OF OTHER URINARY CATHETER, IN 03/11/2020 DANE CELESTIN MD, Ot Z79.8 99 OTHER ENERGY MANAGER (CURRENT) DRUG THERAPY 03/11/2020 DANE CELESTIN MD, Ot Z88.5 ALLERGY STATUS TO NARCOTIC AGENT STATUS 03/11/2020 DANE CELESTIN MD, Ot Z95.5 PRESENCE OF CORONARY ANGIOPLASTY IMPLANT 03/15/2020 DANE CELESTIN MD, Ot C67.9 MALIGNANT NEOPLASM OF BLADDER, UNSPECIFI 03/15/2020 DANE CELESTIN MD Ot I10 ESSENTIAL (PRIMARY) HYPERTENSION 03/15/2020 DANE CELESTIN MD, Ot M06.9 RHEUMATOID ARTHRITIS, UNSPECIFIED 03/15/2020 DANE CELESTIN MD, Ot Z79.8 99 OTHER HALF-WAY (CURRENT) DRUG THERAPY 03/15/2020 DANE CELESTIN MD, Ot Z88.5 ALLERGY STATUS TO NARCOTIC AGENT STATUS 03/15/2020 DANE CELESTIN MD, Ot Z95.5 PRESENCE OF CORONARY ANGIOPLASTY IMPLANT Procedures There is no data. Results Test Result Range Measurement of weight of kidney stone - 02/12/20 11:20 Measurement of weight of kidney stone 2 % NRG Kidney stone composition determination See Note NRG Count of number of calculi 1 NRG Size of stone 1 to 4 NRG Coronavirus SARS-CoV-2 SO 2019 - 0 08:14 Coronavirus Ab [Units/volume] in Serum Negative Negative Methicillin resistant Staphylococcus aur eus (MRSA) screening culture - 03/10/20 06:30 Methicillin resistant Staphylococcus aureus (MRSA) scr eening culture NEG NRG Complete blood count (CBC) with automate d [...] 0.0-0.1 Blood type T Indirect antibody screen pa jono - 03/10/20 06:38 WRISTBAND NUMBER [id number] NRG ABO+Rh group AP NRG Blood group antibody screen NEGATIVE NR G Whole blood basic metabolic panel - 02/23 03/14 01:25 Serum or plasma sodium measurement (moles/volume) 123 mmol/L 135-145 Serum or plasma potassium measurement (moles/volume) 4.5 mmol/L 3.6-5.0 Serum or plasma chloride measurement (moles/volume) 94 mmol/L 98-107 Carbon dioxide 19 mmol/L 21-32 Serum or plasma anion gap determination (moles/volume) 10 mmol/L 5-14 Serum or plasma urea nitrogen measurement (mass/volume ) 15 mg/dL 7-18 Serum or plasma creatinine measurement (mass/volume) 1.07 mg/dL 0.60-1.30 Serum or plasma urea nitrogen/creatinine mass ratio 14 NRG Serum or plasma creatinine measurement w ith calculation of estimated glomerular filtration rate > NRG Serum or plasma glucose measurement (mass/volume) 127 mg/dL 70-105 Serum or plasma calcium measurement (mass/volume) 8.0 mg/dL 8.5-10.1 Complete blood count (CBC) with automate d white blood cell (WBC) differential - 03/11/20 01:25 Blood leukocytes automated count (number/volume) 15.4 10*3/uL 4.3-11.0 Blood erythrocytes automated count (number/volume) 4.25 10*6/uL 4.35-5.85 Venous blood hemoglobin measurement (mass/volume) 13.3 g/dL 13.3-17.7 Blood hematocrit (volume fraction) 38 % 40-54 Automated erythrocyte mean corpuscular volume 90 [ foz_us] 80-99 Automated erythrocyte mean corpuscular h emoglobin (mass per erythrocyte) 31 pg 25-34 Automated erythrocyte mean corpuscular h emoglobin concentration measurement (mass/volume) 35 g/dL 32-36 Automated erythrocyte distribution width ratio 12. 0 % 10.0- 14.5 Automated blood platelet count (count/volume) 264 10*3/uL 130-400 Automated blood platelet mean volume measurement 9.0 [foz_us] 7.4-10.4 Automated blood neutrophils/100 leukocytes 86 % 42-75 Automated blood lymphocytes/100 leukocytes 6 % 12-44 Blood monocytes/100 leukocytes 9 % 0-12 Automated blood eosinophils/100 leukocytes 0 % 0-10 Automated blood basophils/100 leukocytes 0 % 0-10 Blood neutrophils automated count (number/volume) 13.2 10*3 1.8-7.8 Blood lymphocytes automated count (number/volume) 0.9 10*3 1.0-4.0 Blood monocytes automated count (number/volume) 1. 3 10*3 0.0-1.0 Automated eosinophil count 0.0 10*3/uL 0 .0-0.3 Automated blood basophil count (count/volume) 0.0 10*3/uL 0.0-0.1 Manual absolute plasma cell count - 02/23 03/14 01:25 Blood monocytes/100 leukocytes 10 % NRG Manual blood segmented neutrophils/100 leukocytes 84 % NRG Manual blood lymphocytes/100 leukocytes 6 % NRG Blood anisocytosis detection by light microscopy S LIGHT NRG Complete blood count (CBC) with automate d white blood cell (WBC) differential - 03/11/20 12:20 Blood leukocytes automated count (number/volume) 11.7 10*3/uL 4.3-11.0 Blood erythrocytes automated count (number/volume) 4.56 10*6/uL 4.35-5.85 Venous blood hemoglobin measurement (mass/volume) 14.2 g/dL 13.3-17.7 Blood hematocrit (volume fraction) 42 % 40-54 Automated erythrocyte mean corpuscular volume 91 [ foz_us] 80-99 Automated erythrocyte mean corpuscular h emoglobin (mass per erythrocyte) 31 pg 25-34 Automated erythrocyte mean corpuscular h emoglobin concentration measurement (mass/volume) 34 g/dL 32-36 Automated erythrocyte distribution width ratio 12. 5 % 10.0- 14.5 Automated blood platelet count (count/volume) 240 10*3/uL 130-400 Automated blood platelet mean volume measurement 9.0 [foz_us] 7.4-10.4 Automated blood neutrophils/100 leukocytes 73 % 42-75 Automated blood lymphocytes/100 leukocytes 12 % 12-44 Blood monocytes/100 leukocytes 16 % 0-12 Automated blood eosinophils/100 leukocytes 0 % 0-10 Automated blood basophils/100 leukocytes 0 % 0-10 Blood neutrophils automated count (number/volume) 8.5 10*3 1.8-7.8 Blood lymphocytes automated count (number/volume) 1.4 10*3 1.0-4.0 Blood monocytes automated count (number/volume) 1. 8 10*3 0.0-1.0 Automated eosinophil count 0.0 10*3/uL 0 .0-0.3 Automated blood basophil count (count/volume) 0.0 10*3/uL 0.0-0.1 Comprehensive metabolic panel - 03/11/20 12:20 Serum or plasma sodium measurement (moles/volume) 132 mmol/L 135-145 Serum or plasma potassium measurement (moles/volume) 4.8 mmol/L 3.6-5.0 Serum or plasma chloride measurement (moles/volume) 105 mmol/L 98-107 Carbon dioxide 19 mmol/L 21-32 Serum or plasma anion gap determination (moles/volume) 8 mmol/L 5-14 Serum or plasma urea nitrogen measurement (mass/volume ) 14 mg/dL 7-18 Serum or plasma creatinine measurement (mass/volume) 1.08 mg/dL 0.60-1.30 Serum or plasma urea nitrogen/creatinine mass ratio 13 NRG Serum or plasma creatinine measurement w ith calculation of estimated glomerular filtration rate > NRG Serum or plasma glucose measurement (mass/volume) 109 mg/dL 70-105 Serum or plasma calcium measurement (mass/volume) 8.2 mg/dL 8.5-10.1 Serum or plasma total bilirubin measurement (mass/volu me) 0.5 mg/dL 0.1-1.0 Serum or plasma alkaline phosphatase ricardo surement (enzymatic activity/volume) 88 U/L 40-136 Serum or plasma aspartate aminotransfera se measurement (enzymatic activity/volume) 69 U/L 5-34 Serum or plasma alanine aminotransferase measurement (enzymatic activity/volume) 47 U/L 0-55 Serum or plasma protein measurement (mass/volume) 6.4 g/dL 6.4-8.2 Serum or plasma albumin measurement (mass/volume) 3.9 g/dL 3.2-4.5 CALCIUM CORRECTED 8.3 mg/dL 8.5-10.1 Encounters ACCT No. Visit Date/Time Discharge Status Pt. Type Provider Facility Loc./Unit Complaint [id number] 10/22/2019 10:56:00 10/22/2019 23:59 :00 DIS Outpatient Akua Arellano [id number] 03/10/2020 23:47:00 020 13:07:00 DIS Inpatient SABI MCNALLY, DANE Dejes[facility] 4TH S/P TURBT;RICHA REID [id number] 03/10/2020 06:07:00 13:35:00 DIS Outpatient DANE CELESTIN MD [facility] SDC BLADDER TUMOR [id number] 03/08/2020 10:00:00 10:49:00 DIS Outpatient DANE CELESTIN MD [facility] PREOP BLADDER TUMOR [id number] 03/02/2020 12:58:00 23:59:59 CLS Outpatient DANE CELESTIN MD [facility] RAD GROSS HEMATURIA [id number] 02/12/2020 11:15:00 23:59:59 CLS Outpatient FELIX HARRINGTON DO [facility] LAB KIDNEY STONE
== END 2020-03-11 13:07 | disposition home or self-care (01) ==
LOC: EDUNIT# 23:44 → ER 23:46 → 4TH 23:47 → UNDOADMOB 03-11 01:15 → 4TH 03-11 11:27 → UNDODISOB 03-11 13:30
PROVIDERS: ADMIT Urology; ATTEND Urology
DX: T83.098A Other mechanical complication of other urinary catheter, initial encounter (principal); I25.10 Atherosclerotic heart disease of native coronary artery without angina pectoris; I10 Essential (primary) hypertension; M19.90 Unspecified osteoarthritis, unspecified site; G89.29 Other chronic pain; M54.5 Low back pain; R31.0 Gross hematuria; Z79.899 Other long term (current) drug therapy; Z88.5 Allergy status to narcotic agent; Z95.5 Presence of coronary angioplasty implant and graft
CPT/HCPCS: 80048; 80053; 85007; 85025; 85027; 99284; G0378; 36415

== ENCOUNTER 2020-09-26 05:28 | Outpatient (RCR) | payer MEDICARE, MEDICAID ==
[2020-09-21 12:42] VITALS: BP 139/77
[~2020-09-26] VITALS: Ht 172.7 cm; Wt 104.9 kg
[~2020-09-26 05:28] MED LIST changes: +ACET-2267 PO; +ASPI-1238 PO; +ASPI-479 PO; -ASPI-983 PO; +CLOP75TA69 PO; +DOCU-238 PO
[2020-09-28] MEDS ORDERED: SULF1TAB35 PO (08:19)
[2020-09-28] MEDS ORDERED: PHEN-640 PO (08:19)
[2020-09-28] MEDS ORDERED: CIPR500T4 PO (17:48)
== END 2020-09-27 11:06 | disposition home or self-care (01) ==
LOC: PREOP 05:28
PROVIDERS: ATTEND Urology
DX: Z01.818 Encounter for other preprocedural examination (principal); C67.9 Malignant neoplasm of bladder, unspecified; Z20.822 Contact with and (suspected) exposure to COVID-19
CPT/HCPCS: 87081; 87635

== ENCOUNTER 2020-09-28 06:18 | Day surgery (SDC) | payer MEDICARE, MEDICAID ==
[~2020-09-28] VITALS: Ht 172 cm; Wt 104.9 kg
[2020-09-28] VITALS (12 sets, daily range): BP systolic 114–136; BP diastolic 72–85
[2020-09-28] MEDS ORDERED: cefTRIAXone FOR IV USE 1,000 MG in WATER (STERILE) FOR INJECTION 10 ML IV ONE (06:45)
[2020-09-28] MEDS ORDERED: LACTATED RINGERS 1,000 ML IV PRN (06:45)
[2020-09-28] MEDS ORDERED: cefTRIAXone 1,000 MG IV (ROCEPHIN) VIAL ONE (06:49)
[2020-09-28] MEDS ORDERED: WATER (STERILE) FOR INJECTION 10 ML ONE (06:49)
[2020-09-28] MEDS ORDERED: fentaNYL INJECTION 100 MCG/2 ML AMP ONE (06:51)
[2020-09-28] MEDS ORDERED: proPOfol 200 MG/20 ML (DIPRIVAN) VIAL IV ONE (06:52)
[2020-09-28] MEDS ORDERED: LIDOCAINE PF 2% 5 ML (XYLOCAINE) VIAL ONE (06:52)
[2020-09-28] MEDS ORDERED: SEVOFLURANE (ULTANE) 15 ML INHAL SOLN ONE (06:52)
[2020-09-28] MEDS ORDERED: NEOSTIGMINE 3 MG/3 ML VIAL ONE (06:52)
[2020-09-28] MEDS ORDERED: ROCURONIUM 10 MG/ML 5 ML SYRINGE IV ONE (06:52)
[2020-09-28] MEDS ORDERED: GLYCOPYRROLATE 0.2 MG/ML (ROBINUL) 2 ML VIAL ONE (06:52)
[2020-09-28] MEDS ORDERED: ONDANSETRON 4 MG/2 ML (SDV) Z0FRAN ONE (06:52)
--- NOTE | 2020-09-28 07:02 | Progress Note-Pre Operative ---
Pre-Operative Progress Note H&P Reviewed The H&P was reviewed, patient examined and no changes noted. Date Seen by Provider: Sep 28, 2020 Time Seen by Provider: 07:02 Date H&P Reviewed: Sep 28, 2020 Time H&P Reviewed: 07:02 Pre-Operative Diagnosis: MULTIPLE BLADDER TUMORS DANE CELESTIN MD Sep 28, 2020 07:02
--- NOTE | 2020-09-28 07:03 | Progress Note-Post Operative ---
Post-Operative Progess Note Surgeon (s)/Writing Manager (s) Surgeon DANE CELESTIN MD Writing Manager: NONE Pre-Operative Diagnosis MULTIPLE BLADDER TUMORS (4) 3 SMALL AND ONE MEDIUM Post-Operative Diagnosis SAME Procedure & Operative Findings Date of Procedure 09/28/20 Procedure Performed/Findings TURBT'S Anesthesia Type GENERAL Estimated Blood Loss Estimated blood loss (mL): NEGLIGIBLE Specimens/Packing Specimens Removed BLADDER TUMORS AND BASES Packing: NONE DANE CELESTIN MD Sep 28, 2020 07:03
--- NOTE | 2020-09-28 07:06 | Discharge Inst-Urology ---
Discharge Inst-Urology Reconcile Patient Problems Problems Reviewed?: Yes Final Diagnosis MULTIPLE TUMORS Patient Instructions/Follow Up Plan/Assessment/Instructions Please make appointment to been seen in office in 2 weeks. Rest for 48 hours In 72 hours, if no bleeding, may resume ASA and if no bleeding 48 hours later, my resume Plavix Increase oral fluids for 48 hours and then as needed. Diet as tolerated. If questions or concerns contact your physician Or seek help at emergency department. DANE CELESTIN MD Sep 28, 2020 07:06
[2020-09-28] MEDS ORDERED: CATHETER FLUSH 10 ML SYR IV PRN (07:30)
[2020-09-28] MEDS ORDERED: SULF1TAB35 PO (08:19)
[2020-09-28] MEDS ORDERED: PHEN-640 PO (08:19)
[2020-09-28] MEDS ORDERED: ONDANSETRON 4 MG/2 ML (SDV) Z0FRAN IVP PRN (08:30)
[2020-09-28] MEDS ORDERED: morphine INJ 10 MG/ML 1ML (SYR OR VIAL) IVP ONE (08:30)
[2020-09-28] MEDS ORDERED: PHENAZOPYRIDINE 100 MG (PYRIDIUM) TABLET ONE (09:39)
[2020-09-28] MEDS ORDERED: PHENAZOPYRIDINE 100 MG (PYRIDIUM) TABLET PO ONE (09:45)
--- NOTE | 2020-09-28 10:13 | OPERATIVE REPORT ---
DATE OF SERVICE: 09/28/2020 PREOPERATIVE DIAGNOSIS: Multiple bladder tumors. POSTOPERATIVE DIAGNOSIS: Multiple bladder tumors, three small ones and one medium. OPERATION PERFORMED: Transurethral resection of the bladder tumors. SURGEON: Dane Celestin MD. ANESTHESIA: General. COMPLICATIONS: None. DESCRIPTION OF PROCEDURE: Under satisfactory general anesthesia, the patient in lithotomy position, genitalia were prepped and draped in the usual sterile fashion. The urethra was dilated with Liam sound to accommodate 27-Maced[place] Stringer resectoscope. The prostate was small and nonobstructing. Again, visualized one small bladder tumor at the left posterior wall, two small ones in the top and one small one on the right lateral wall blending with a medium sized tumor close to the bladder neck if not on the bladder neck. I went ahead and cauterized the small ones including the base. Then, I resected the bigger one and obtained also bites from the base. I also went ahead and got a bite from the median lobe of the prostate, just to open his channel and make it easier for catheterization. I cauterized the bleeder. The hemostasis was complete and no need for catheter. The patient tolerated the procedure and anesthesia well and was sent to recovery room in a stable condition. Job ID: [id number] DocumentID: [id number] Dictated Date: 09/28/2020 08:14:41 Manager Wind Date: 09/28/2020 10:12:53 Dictated By: DANE CELESTIN MD [facility]
--- NOTE | 2020-09-28 14:00 | Anesthesia-General Post-Op ---
General Patient Condition Mental Status/LOC: Same as Preop Cardiovascular: Satisfactory Nausea/Vomiting: Absent Respiratory: Satisfactory Pain: Controlled Complications: Absent Post Op Complications Complications None Follow Up Care/Instructions Patient Instructions None needed. Anesthesia/Patient Condition Patient Condition Patient was seen this morning after the procedure and he was doing well, no complaints, stable vital signs, no apparent adverse anesthesia problems. CARLOS ALBERTO GRANDE DO Sep 28, 2020 14:00
[2020-09-28] MEDS ORDERED: CIPR500T5 PO (17:48)
== END 2020-09-28 10:30 | disposition home or self-care (01) ==
LOC: SDC 06:18
PROVIDERS: ATTEND Urology
DX: D49.4 Neoplasm of unspecified behavior of bladder (principal); I10 Essential (primary) hypertension; I25.10 Atherosclerotic heart disease of native coronary artery without angina pectoris; M19.90 Unspecified osteoarthritis, unspecified site; E78.00 Pure hypercholesterolemia, unspecified; E66.9 Obesity, unspecified; Z68.35 Body mass index [BMI] 35.0-35.9, adult; Z79.899 Other long term (current) drug therapy; Z88.5 Allergy status to narcotic agent; Z95.5 Presence of coronary angioplasty implant and graft
CPT/HCPCS: 88307

== ENCOUNTER 2020-09-28 16:39 | Emergency (ER) | payer MEDICARE, MEDICAID ==
[~2020-09-28] VITALS: Ht 172 cm; Wt 99.7 kg
[~2020-09-28 16:39] MED LIST changes: +PHEN-640 PO
[2020-09-28] MEDS ORDERED: LIDOCAINE UROJET 2% GEL 10 ML PKG ONE (16:49)
--- NOTE | 2020-09-28 16:57 | ED GU-Male ---
General Chief Complaint: - Urinary Stated Complaint: COMPLICATION FROM SURGERY/CANNOT URINATE Nursing Triage Note: PT PRESENTS TO ED VIA POV FROM HOME WITH COMPLAINTS OF NOT URINATING SINCE HAVING BLADDER SURGERY WITH DR JIANG THIS AM. Source: patient Exam Limitations: no limitations History of Present Illness Date Seen by Provider: Sep 28, 2020 Time Seen by Provider: 16:54 Initial Comments Patient is a 65-year-old male who presents to the emergency department today with a chief complaint of inability to urinate. Patient states that he had bladder surgery this morning with Dr. River. He states that he had some bladder polyps removed. He states he was discharged from the hospital at 10:00 this morning and has not been able to void since. Patient states "I feel like I am about to explode". He states that he is just been dribbling urine all day long attempting to try to urinate. He denies fevers, chills, cough congestion. No nausea, vomiting, diarrhea. No other complaints of illness or injury. All other review of systems reviewed and negative except as stated. Timing/Duration: getting worse Severity/Quality: severe, aching, cramping Radiation: none Activities at Onset: none Prior Genitourinary Problems: similar symptoms Allergies and Home Medications Allergies Coded Allergies: ibuprofen (Verified Allergy, Unknown, 03/11/20) Home Medications Acetaminophen 500 Mg Tablet, 1,000 MG PO Q6H PRN for PAIN-MILD (1-4), (Reported) Atorvastatin Calcium 80 Mg Tablet, 80 MG PO HS, (Reported) Ciprofloxacin HCl 500 Mg Tablet, 500 MG PO BID Prescribed by: ARANZA MONDRAGON on 09/28/201747 Docusate Sodium 100 Mg Capsule, 200 MG PO BID PRN for CONSTIPATION-1ST LINE, (Reported) Metoprolol Succinate 25 Mg Tab.er.24h, 12.5 MG PO HS, (Reported) TAKES OF A 25MG TAB Phenazopyridine HCl 200 Mg Tablet, 1 TAB PO TID Prescribed by: ALIRIO GALVEZ on 09/28/20818 Sulfamethoxazole/Trimethoprim 1 Each Tablet, 1 EACH PO BID Prescribed by: ALIRIO GALVEZ on 09/28/20 08 Tamsulosin HCl 0.4 Mg Cap, 0.4 MG PO 1800, (Reported) Patient Home Medication List Home Medication List Reviewed: Yes Review of Systems Review of Systems Constitutional: see HPI Respiratory: no symptoms reported Cardiovascular: no symptoms reported Gastrointestinal: abdominal pain Genitourinary: pain, urgency Musculoskeletal: no symptoms reported Skin: no symptoms reported All Other Systemes Reviewed Negative Unless Noted: Yes Past Ikfogdq-Jfdxkg-Ncvjmy Hx Patient Social History Alcohol Use: Denies Use Smoking Status: Former Smoker Former Smoker, Quit: Mar 08, 2013 Recent Infectious Disease Expo: No Recent Hopitalizations: No Immunizations Up To Date Date of Pneumonia Vaccine: May 26, 2020 Date of Influenza Vaccine: May 26, 2020 Seasonal Allergies Seasonal Allergies: Yes Past Medical History Surgeries: Yes (NECK SURGERY;CARDIAC CATH-STENTS X 4; TURBT 03/10/20 ) Bladder Surgery, Cardiac, Coronary Stent Respiratory: No Currently Using CPAP: No Currently Using BIPAP: No Cardiac: Yes (CARDIAC CATH-STENTS X 4--2013) Coronary Artery Disease, Heart Attack, Hypertension Neurological: No Genitourinary: Yes (TURBT 03/10/[address] JIANG) Gastrointestinal: No Musculoskeletal: Yes Arthritis, Chronic Back Pain Endocrine: No HEENT: Yes (glasses, no teeth) Cancer: Yes Bladder Psychosocial: No Integumentary: No Blood Disorders: No Physical Exam Vital Signs Vital Signs - First Documented 09/28/20 16:44 Temp 36.9 Pulse 120 Resp 16 B/P (MAP) 147/85 (105) Pulse Ox 95 Capillary Refill : Less Than 3 Seconds Height, Weight, BMI Height: '" Weight: lbs. oz. kg; 33.00 BMI Method: General Appearance: WD/WN Cardiovascular: regular rate, rhythm, tachycardia Respiratory: lungs clear, normal breath sounds, no respiratory distress Gastrointestinal: distended, guarding (Suprapubic), tenderness Extremities: non-tender, normal inspection, no pedal edema Neurologic/Psychiatric: alert, normal mood/affect, oriented x 3 Skin: normal color, warm/dry Progress/Results/Core Measures Suspected Sepsis Recent Fever Within 48 Hours: No Infection Criteria Present: None New/Unexplained Altered Menta: No Sepsis Screen: No Definite Risk SIRS Temperature: Pulse: 120 Respiratory Rate: 16 Blood Pressure 147 /85 Mean: 105 Results/Orders Lab Results Laboratory Tests Test 09/28/20 17:01 Range/Units Urine Color ADAIR H Urine Clarity CLOUDY Urine pH 6.5 5-9 Urine Specific [place] 1.010 L 1.016-1.022 Urine Protein 3+ H NEGATIVE Urine Glucose (UA) TRACE H NEGATIVE Urine Ketones 1+ H NEGATIVE Urine Nitrite POSITIVE H NEGATIVE Urine Bilirubin 2+ H NEGATIVE Urine Urobilinogen 4.0 < = 1.0 MG/DL Urine Leukocyte Esterase 2+ H NEGATIVE Urine RBC (Auto) 3+ H NEGATIVE Urine RBC TNTC H /HPF Urine WBC 50-100 H /HPF Urine Crystals NONE /LPF Urine Bacteria TRACE /HPF Urine Casts NONE /LPF Urine Mucus NEGATIVE /LPF Urine Culture Indicated YES My Orders Orders - ARANZA MONDRAGON MD Lidocaine 2% (Urojet) (Xylocaine Urojet) (09/28/20 17:00) Ua Culture If Indicated (09/28/20 16:53) Lidocaine 2% (Urojet) (Xylocaine Urojet) (09/28/20 16:49) Urine Culture (09/28/20 17:01) Medications Given in ED Current Medications Medications Dose Ordered Sig/Jennifer Route Start Time Stop Time Status Last Admin Dose Admin Lidocaine HCl 10 ml ONCE ONCE TOP 09/28/20 17:00 09/28/20 17:01 DC 09/28/20 17:13 10 ML Vital Signs/I&O 09/28/20 16:44 Temp 36.9 Pulse 120 Resp 16 B/P (MAP) 147/85 (105) Pulse Ox 95 Capillary Refill : Less Than 3 Seconds Blood Pressure Mean: 105 Progress Note : Time: 16:57 Progress Note 65-year-old male to the emergency department with a chief complaint of acute urinary retention. Patient is given Urojet and a De Souza catheter is placed with complete resolution of symptoms. UA obtained. Patient to call Dr. Jiang's office in the morning for follow-up. 1743 Patient's urinalysis shows too numerous to count red blood cells, white blood cells as well as nitrites and leukocyte Estrace. Patient will be sent home on ciprofloxacin. He is encouraged to call Dr. Reynaga's office in the morning he feels much better after his De Souza catheter has been placed. He did have approximately 400 cc of dark red urine after catheterization, he was hand irrigated with several 100 cc of normal saline. Urine is now clearish pink and again the patient feels much better. Departure Impression Primary Impression: Acute urinary retention Additional Impression: Urinary tract infection Qualified Codes: T83.511A - Infection and inflammatory reaction due to indwelling urethral catheter, initial encounter; N39.0 - Urinary tract infection, site not specified Disposition: 01 HOME, SELF-CARE Condition: Stable Departure-Patient Inst. Decision time for Depature: 17:56 Referrals: FELIX HARRINGTON DO (PCP/Family) Primary Care Physician DANE JIANG MD Patient Instructions: Urinary Tract Infection, Adult (DC), De Souza Catheter, Male Add. Discharge Instructions: Drink plenty of fluids to stay well-hydrated. Please take the antibiotics prescribed by Dr. Jiang. Drink lots of fluids as you are taking these antibiotics. The Pharmacy may call you about a second prescription for antibiotics. You DO NOT need to fill this. Return to the emergency department if you have return of pain, your catheter is not draining, fever or any other emergent concerning symptoms Please follow-up with Dr. Jiang in the morning. ARANZA MONDRAGON MD Sep 28, 2020 16:57
[2020-09-28] MEDS ORDERED: LIDOCAINE UROJET 2% GEL 10 ML PKG TOP ONE (17:00)
[2020-09-28 17:09] LABS: CLARITY,URINE CLOUDY; COLOR,URINE AMBER; GLUCOSE, URINE (UA) TRACE (NEGATIVE); KETONES,URINE 1+ (NEGATIVE); LEUKOCYTE ESTERASE ,URINE 2+ (NEGATIVE); NITRITE,URINE POSITIVE (NEGATIVE); PH,URINE 6.5 (5-9); PROTEIN,URINE 3+ (NEGATIVE)
[2020-09-28 17:17] LABS: RBC,URINE TNTC /HPF
[2020-09-28 17:18] LABS: BILIRUBIN,URINE 2+ (NEGATIVE)
[2020-09-28 17:28] LABS: BACTERIA,URINE TRACE /HPF; WBC,URINE 50-100 /HPF
--- NOTE | 2020-09-28 17:29 | NUR ---
IRRIGATED WITH APX 240 STERILE WATER URINE LIGHT PINK NOW.
[2020-09-28] MEDS ORDERED: CIPR500T4 PO (17:48)
[2020-09-28 17:59] VITALS: BP 114/64
== END 2020-09-28 18:02 | disposition home or self-care (01) ==
LOC: EDUNIT# 16:39 → ER 16:41
DX: N39.0 Urinary tract infection, site not specified (principal); I10 Essential (primary) hypertension; Z87.891 Personal history of nicotine dependence; Z88.6 Allergy status to analgesic agent; Z85.51 Personal history of malignant neoplasm of bladder; Z95.5 Presence of coronary angioplasty implant and graft; Z95.9 Presence of cardiac and vascular implant and graft, unspecified
CPT/HCPCS: 51702; 81000; 87088

== ENCOUNTER → 2021-04-18 | Outpatient (CLI) | payer MEDICARE, MEDICAID ==
[~2021-04-18] MED LIST changes: +CATHETER FLUSH 10 ML SYR IV PRN; +CIPR500T5 PO; -DOCU-238 PO; +DOCU-26 PO; +REGADENOSON 0.4 MG/5 ML SYR (LEXISCAN) IV ONE; -SULF1TAB35 PO; +SULF1TAB38 PO
[2021-04-18 12:29] VITALS: BP 148/78
--- NOTE | 2021-04-20 18:51 | STRESS TEST ---
DATE OF SERVICE: 04/18/2021 RESTING AND POST REGADENOSON TECHNETIUM-99M TETROFOSMIN SPECT CT IMAGING ORDERING PHYSICIAN: Dr. Pascal. PRIMARY PHYSICIAN: Dr. Gonzalez. CLINICAL DIAGNOSIS: Chest discomfort. Baseline images were carried out after injection of 10.87 mCi of technetium-99m Tetrofosmin. This was followed by 0.4 mg Regadenoson and 32.7 mCi of technetium-99m Tetrofosmin for stress imaging. The electrocardiogram showed sinus rhythm at baseline. It did not change significantly with the Regadenoson infusion. Review of images at rest and following stress indicates a fixed lateral wall perfusion defect. Gated images show lateral wall akinesis. Left ventricular ejection fraction is calculated to be 73%. Left ventricular end diastolic volume is 63 mL. TID is absent (1.01). CONCLUSIONS: 1. Lateral wall myocardial infarction without significant ischemia. 2. Lateral wall akinesis. 3. Well preserved global left ventricular systolic function with a calculated ejection fraction of 73%. Job ID: [id number] DocumentID: [id number] Dictated Date: 04/20/2021 17:13:50 Fruit And Vegetable Classer Date: 04/20/2021 18:51:00 Dictated By: LOYDA PASCAL MD, MA, FACP, FACC,
== END ==
LOC: CARD 11:30
PROVIDERS: ATTEND Internal Medicine Cardiovascular Disease
DX: I51.7 Cardiomegaly (principal)
CPT/HCPCS: 78452; 93017; 93306; A9502

== ENCOUNTER → 2021-11-21 | Day surgery (SDC) | payer MEDICARE, MEDICAID ==
[~2021-11-21] VITALS: Ht 172.7 cm; Wt 108.1 kg
[~2021-11-21] MED LIST changes: -CATHETER FLUSH 10 ML SYR IV PRN; +LIDOCAINE 1% INJ 50 ML (XYLOCAINE) VIAL IJ ONE; +LIDOCAINE 1% INJ 50 ML (XYLOCAINE) VIAL ONE; -REGADENOSON 0.4 MG/5 ML SYR (LEXISCAN) IV ONE
--- NOTE | 2021-11-21 14:59 | OPERATIVE REPORT ---
DATE OF SERVICE: 11/21/2021 PREOPERATIVE DIAGNOSIS: Palpitations. POSTOPERATIVE DIAGNOSIS: Palpitations. PROCEDURE: Implantable loop recorder implantation. INDICATIONS: The patient is a 66-year-old man who has been experiencing palpitations that are infrequent, but quite bothersome. Implantable loop recorder implantation was carried out today after having obtained an informed consent. DESCRIPTION OF PROCEDURE: [facility] The left prepectoral area was prepared and draped in the usual sterile fashion. Lidocaine 1% was used for local anesthesia. We used the tools provided with the Medtronic LINQ II device to make a pocket anterior to the fourth intercostal space on the left side into which the device was placed and the wound edges were closed using Dermabond and Steri-Strips. The serial number of the device is [id number]. He tolerated the procedure well. Job ID: [id number] DocumentID: [id number] Dictated Date: 11/21/2021 10:52:11 Education Professional Date: 11/21/2021 14:58:33 Dictated By: LOYDA MALIN MD, MA, FACP, FACC,
== END | disposition home or self-care (01) ==
LOC: CATH 09:00
PROVIDERS: ATTEND Internal Medicine Cardiovascular Disease
DX: R00.2 Palpitations (principal); I25.10 Atherosclerotic heart disease of native coronary artery without angina pectoris; E78.2 Mixed hyperlipidemia; I65.23 Occlusion and stenosis of bilateral carotid arteries; M79.605 Pain in left leg; M79.604 Pain in right leg; Z95.5 Presence of coronary angioplasty implant and graft; Z87.891 Personal history of nicotine dependence; Z79.899 Other long term (current) drug therapy
CPT/HCPCS: 33285; C1764

== ENCOUNTER 2022-02-09 00:23 | Emergency (ER) | payer MEDICARE, MEDICAID ==
[~2022-02-09] VITALS: Ht 172.7 cm; Wt 108.9 kg
[~2022-02-09 00:23] MED LIST changes: -LIDOCAINE 1% INJ 50 ML (XYLOCAINE) VIAL IJ ONE; -LIDOCAINE 1% INJ 50 ML (XYLOCAINE) VIAL ONE
[2022-02-09] MEDS ORDERED: NIRM1TAB5 (00:41)
--- NOTE | 2022-02-09 00:45 | ED General ---
General Chief Complaint: Cardiac/General Problems Stated Complaint: HEART PALPITATIONS History of Present Illness Date Seen by Provider: Feb 09, 2022 Time Seen by Provider: 00:43 Initial Comments 66-year-old male with PMH of CAD/past bladder cancer/heart arrhythmia/COVID positive diagnosed 5 days ago, is here with complaints of a run of tachycardia that he noticed on his home monitor tonight. Patient fell asleep watching TV and did not take his metoprolol at night due to that. When he woke up he notic ed his tachycardia on the monitor groin and low 150s. Denies chest pain, palpitations, fever, abdominal pain, nausea and vomiting, diaphoresis. Patient came to the ER to make sure everything is okay. Allergies and Home Medications Allergies Coded Allergies: ibuprofen (Verified Allergy, Unknown, 03/11/20) Patient Home Medication List Home Medication List Reviewed: Yes Acetaminophen (Tylenol Extra Strength) 500 Mg Tablet, 1,000 MG PO Q6H PRN for PAIN-MILD (1-4), (Reported) Entered as Reported by: CATHY PARRA on 03/11/20 1036 Atorvastatin Calcium (Atorvastatin Calcium) 80 Mg Tablet, 80 MG PO HS, (Reported) Entered as Reported by: ARTIE BARAKAT on 03/08/20 1040 Docusate Sodium (Stool Softener) 100 Mg Capsule, 200 MG PO BID PRN for CONSTIPATION-1ST LINE, (Reported) Entered as Reported by: CATHY PARRA on 03/11/20 1036 Metoprolol Succinate (Metoprolol Succinate) 25 Mg Tab.er.24h, 12.5 MG PO HS, (Reported) Entered as Reported by: ARTIE BARAKAT on 03/08/20 1040 Nirmatrelvir/Ritonavir (Paxlovid 150-100 mg Pack (Eua)) 150 Mg-100 Mg Tablet, (Reported) Entered as Reported by: RASHEED ALVARADO on 02/09/22 0041 Last Action: New Order Phenazopyridine HCl (Pyridium) 200 Mg Tablet, 1 TAB PO TID Prescribed by: ALIRIO GALVEZ on 09/28/20818 Sulfamethoxazole/Trimethoprim (Bactrim Ds Tablet) 1 Each Tablet, 1 EACH PO BID Prescribed by: ALIRIO GALVEZ on 2/3/21 0819 Tamsulosin HCl (Flomax) 0.4 Mg Cap, 0.4 MG PO 1800, (Reported) Entered as Reported by: ARTIE BARAKAT on 03/08/20 1040 Review of Systems Review of Systems Constitutional: no symptoms reported EENTM: no symptoms reported Respiratory: no symptoms reported Cardiovascular: palpitations Gastrointestinal: no symptoms reported Genitourinary: no symptoms reported Musculoskeletal: no symptoms reported Skin: no symptoms reported Psychiatric/Neurological: No Symptoms Reported Hematologic/Lymphatic: No Symptoms Reported Immunological/Allergic: no symptoms reported Past Zelojye-Zfrbbu-Vwaudc Hx Patient Social History Tobacco Use?: No Substance use?: No Alcohol Use?: No Pt feels they are or have been: No Seasonal Allergies Seasonal Allergies: Yes Past Medical History Surgery/Hospitalization HX: cardiac stents, htn, high cholesterol, bph Surgeries: Yes (NECK SURGERY;CARDIAC CATH-STENTS X 4; TURBT 03/10/20 ) Bladder Surgery, Orthopedic Respiratory: No Currently Using CPAP: No Currently Using BIPAP: No Cardiac: Yes (CARDIAC CATH-STENTS X 4--2012) Hypertension, Palpitations, Syncope Neurological: No Genitourinary: Yes (TURBT 03/10/[address] CELESTIN) Benign Prostatic Hyperpl Gastrointestinal: No Musculoskeletal: Yes Arthritis, Chronic Back Pain Endocrine: No HEENT: Yes (glasses, no teeth) Cancer: Yes Bladder Psychosocial: No Integumentary: No Blood Disorders: No Physical Exam Vital Signs Vital Signs - First Documented 02/09/22 00:31 Temp 36.4 Pulse 96 Resp 16 B/P (MAP) 147/74 (98) Pulse Ox 94 O2 Delivery Room Air Capillary Refill : Height, Weight, BMI Height: '" Weight: lbs. oz. kg; 36.24 BMI Method: General Appearance: No Apparent Distress, WD/WN Eyes: Bilateral Eye Normal Inspection HEENT: PERRL/EOMI Neck: Full Range of Motion Respiratory: Lungs Clear, Normal Breath Sounds Cardiovascular: Regular Rate, Rhythm Gastrointestinal: Normal Bowel Sounds, Non Tender, Soft Back: Normal Inspection, No CVA Tenderness Neurologic/Psychiatric: Alert, Oriented x3 Progress/Results/Core Measures Suspected Sepsis SIRS Temperature: Pulse: Respiratory Rate: Laboratory Tests 02/09/22 01:12: White Blood Count 6.8 Blood Pressure / Mean: Laboratory Tests 02/09/22 01:12: Creatinine 1.10, Platelet Count 218, Total Bilirubin 0.3 Results/Orders Lab Results Laboratory Tests Test 02/09/22 01:12 Range/Units White Blood Count 6.8 4.3-11.0 10^3/uL Red Blood Count 4.35 4.30-5.52 10^6/uL Hemoglobin 13.7 13.3-17.7 g/dL Hematocrit 41 40-54 % Mean Corpuscular Volume 95 80-99 fL Mean Corpuscular Hemoglobin 32 25-34 pg Mean Corpuscular Hemoglobin Concent 33 32-36 g/dL Red Cell Distribution Width 12.0 10.0-14.5 % Platelet Count 218 130-400 10^3/uL Mean Platelet Volume 9.1 9.0-12.2 fL Immature Granulocyte % (Auto) 0 % Neutrophils (%) (Auto) 53 42-75 % Lymphocytes (%) (Auto) 29 12-44 % Monocytes (%) (Auto) 13 H 0-12 % Eosinophils (%) (Auto) 5 0-10 % Basophils (%) (Auto) 0 0-10 % Neutrophils # (Auto) 3.6 1.8-7.8 10^3/uL Lymphocytes # (Auto) 2.0 1.0-4.0 10^3/uL Monocytes # (Auto) 0.9 0.0-1.0 10^3/uL Eosinophils # (Auto) 0.3 0.0-0.3 10^3/uL Basophils # (Auto) 0.0 0.0-0.1 10^3/uL Immature Granulocyte # (Auto) 0.0 0.0-0.1 10^3/uL Sodium Level 143 135-145 MMOL/L Potassium Level 4.2 3.6-5.0 MMOL/L Chloride Level 106 98-107 MMOL/L Carbon Dioxide Level 25 21-32 MMOL/L Anion Gap 12 5-14 MMOL/L Blood Urea Nitrogen 12 7-18 MG/DL Creatinine 1.10 0.60-1.30 MG/DL Estimat Glomerular Filtration Rate 74 BUN/Creatinine Ratio 11 Glucose Level 116 H 70-105 MG/DL Calcium Level 8.1 L 8.5-10.1 MG/DL Corrected Calcium 8.3 L 8.5-10.1 MG/DL Total Bilirubin 0.3 0.1-1.0 MG/DL Aspartate Amino Transf (AST/SGOT) 20 5-34 U/L Alanine Aminotransferase (ALT/SGPT) 23 0-55 U/L Alkaline Phosphatase 79 40-136 U/L Troponin I < 0.028 <0.028 NG/ML Total Protein 6.5 6.4-8.2 GM/DL Albumin 3.7 3.2-4.5 GM/DL My Orders Orders - EVON DELEON MD Ekg Tracing (02/09/22 00:30) Cbc With Automated Diff (02/09/22 01:03) Comprehensive Metabolic Panel (02/09/22 01:03) Troponin I Winston (02/09/22 01:03) Vital Signs/I&O 02/09/22 00:31 Temp 36.4 Pulse 96 Resp 16 B/P (MAP) 147/74 (98) Pulse Ox 94 O2 Delivery Room Air Capillary Refill : Progress Note : Progress Note EPISODIC TACHYCARDIA x1 AT HOME: - LABs unremarkable, troponin undetectable - EKG non-ischemic - Telemetry monitoring in ER has shown a hear rate consistently been in the 70's and 80's ' - Follow up with PCP and patient ambassador for Holtor monitor if it recurs again -The patient was seen in the ED, and treated appropriately to presentation at a specific point in time. Patient is informed that there is a possibility that disease and illness can evolve and change in acuity rapidly or slowly after patient is discharged from the ER. Precautionary advice given to the patient for immediate return to ER if symptoms worsen or do not resolve, and to seek [facility] care sooner rather than later. Pt also advised on the importance of PCP follow up and compliance with management and follow up plan with PCP and/or specialist, as this is part of the management plan. Pt verbally expressed understanding. Departure Impression Primary Impression: Tachycardia, paroxysmal Additional Impression: Normal exam Disposition: 01 HOME, SELF-CARE Condition: Stable Departure-Patient Inst. Referrals: FELIX HARRINGTON DO (PCP/Family) Primary Care Physician Patient Instructions: Tachycardia Add. Discharge Instructions: - Telemetry monitoring in ER has shown a hear rate consistently been in the 70's and 80's ' - Follow up with PCP and patient ambassador for Holtor monitor if it recurs again All discharge instructions reviewed with patient and/or family. Voiced understanding. EVON DELEON MD Feb 09, 2022 00:45
[2022-02-09 01:27] LABS: BASOPHILS % (AUTO) 0 % (0-10); EOSINOPHILS # (AUTO) 0.3 10^3/uL (0.0-0.3); EOSINOPHILS % (AUTO) 5 % (0-10); HEMATOCRIT 41 % (40-54); HEMOGLOBIN 13.7 g/dL (13.3-17.7); LYMPHOCYTES % (AUTO) 29 % (12-44); MEAN CORPUSCULAR HEMOGLOBIN 32 pg (25-34); MEAN CORPUSCULAR HGB CONC 33 g/dL (32-36); MEAN CORPUSCULAR VOLUME 95 fL (80-99); MEAN PLATELET VOLUME 9.1 fL (9.0-12.2); MONOCYTES # (AUTO) 0.9 10^3/uL (0.0-1.0); MONOCYTES % (AUTO) 13 % (0-12); NEUTROPHILS # (AUTO) 3.6 10^3/uL (1.8-7.8); NEUTROPHILS % (AUTO) 53 % (42-75); PLATELET COUNT 218 10^3/uL (130-400); WHITE BLOOD COUNT 6.8 10^3/uL (4.3-11.0)
[2022-02-09 01:29] LABS: ALBUMIN 3.7 GM/DL (3.2-4.5); CHLORIDE 106 MMOL/L (98-107); POTASSIUM 4.2 MMOL/L (3.6-5.0); SODIUM 143 MMOL/L (135-145)
[2022-02-09 01:30] LABS: CALCIUM 8.1 MG/DL (8.5-10.1)
[2022-02-09 01:31] LABS: GLUCOSE 116 MG/DL (70-105)
[2022-02-09 01:32] LABS: TOTAL PROTEIN 6.5 GM/DL (6.4-8.2)
[2022-02-09 01:33] LABS: BILIRUBIN,TOTAL 0.3 MG/DL (0.1-1.0); CARBON DIOXIDE 25 MMOL/L (21-32)
[2022-02-09 01:35] LABS: ALKALINE PHOSPHATASE 79 U/L (40-136); GFR ESTIMATED 74
[2022-02-09 01:36] LABS: BUN/CREATININE RATIO 11
[2022-02-09 01:38] LABS: ALANINE AMINOTRANSFERASE 23 U/L (0-55)
[2022-02-09 02:30] VITALS: BP 109/97
== END 2022-02-09 02:33 | disposition home or self-care (01) ==
LOC: EDUNIT# 00:23 → ER 00:26
DX: I47.9 Paroxysmal tachycardia, unspecified (principal); I10 Essential (primary) hypertension; T44.7X6A Underdosing of beta-adrenoreceptor antagonists, initial encounter; Z91.138 Patient's unintentional underdosing of medication regimen for other reason; Z79.899 Other long term (current) drug therapy
CPT/HCPCS: 36415; 80053; 84484; 85025; 93005

== ENCOUNTER → 2022-08-16 | Outpatient (CLI) | payer MEDICARE, MEDICAID ==
[~2022-08-16] MED LIST changes: +CLOP-31 PO; -CLOP75TA69 PO; +NIRM1TAB5
--- NOTE | 2022-08-16 12:28 | Diagnostic Imaging Report ---
EXAMINATION: CT abdomen and pelvis without contrast. TECHNIQUE: Multiple contiguous axial images were obtained through the abdomen and pelvis without the use of intravenous contrast. All CT scans use one or more of the following dose optimizing techniques: automated exposure control, MA and/or KvP adjustment based on patient size and exam type or iterative reconstruction. HISTORY: HEMATURIA COMPARISON: 03/02/2020 FINDINGS: Lung bases: The lung bases are clear. Solid organs: The liver is normal. Multiple layering hyperdense stones within the gallbladder. There is no biliary ductal dilation. Pancreas is normal. Spleen is normal. Adrenal glands are normal. There is nonobstructing left renal calculus measuring 0.4 cm. There is a right renal cyst which requires no follow-up. No hydronephrosis. Bowel: The stomach and small bowel are normal without obstruction. There is scattered colonic diverticulosis. Appendix is normal. Peritoneum: There is no intraperitoneal free fluid or free air. No suspicious lymphadenopathy. Vasculature: Calcification of the aorta without aneurysm. Musculoskeletal: Degenerative changes of the spine without suspicious osseous lesion or compression fracture. There is a fat-containing right inguinal hernia. Pelvis: The prostate gland is normal. There appear to be small bilateral posterior urinary bladder diverticula. There is hyperdense soft tissue or blood products within the urinary bladder. Along the left lateral urinary bladder wall, there is nodular thickening. IMPRESSION: 1. Nodular thickening of the urinary bladder with hyperdense soft tissue or blood products. Findings concerning for bladder neoplasm and correlation with direct visualization is recommended. 2. Nonobstructing 0.4 cm left renal calculus without hydronephrosis. 3. Cholelithiasis. 4. Colonic diverticulosis. Dictated by: Dictated on workstation # [id number]
== END ==
LOC: RAD 12:06
PROVIDERS: ATTEND Urology
DX: N20.0 Calculus of kidney (principal); N32.89 Other specified disorders of bladder; K80.20 Calculus of gallbladder without cholecystitis without obstruction; K57.30 Diverticulosis of large intestine without perforation or abscess without bleeding; Z85.51 Personal history of malignant neoplasm of bladder
CPT/HCPCS: 74176

== ENCOUNTER 2022-11-16 14:03 | Emergency (ER) | payer MEDICARE, MEDICAID ==
[~2022-11-16] VITALS: Ht 172 cm; Wt 99.7 kg
--- NOTE | 2022-11-16 14:57 | ED GU-Male ---
General Chief Complaint: Post OP Complications/Pain Stated Complaint: POST OP 11/15/2022 | CATHETER STOPPED FLOWING Nursing Triage Note: PT AMB TO RM 7 W CO OF URETHRAL CATHETER NOT WORKING OR DRAINING. PT CATH TUBING BROKEN OFF OF RESIVOIR. PT STATES NOT HAVING URINE OUTPUT, URINE IN BAG VERY BLOODY AND HAS LOTS OF CLOTS. PT STATES HAS SPASMS THAT COME AND GO. PT STATES HAD TURBT, PROSTATES BX DONE YESTERDAY BY DR LEMUS. PT HAS BEEN OFF OF PLAVIX FOR 1 WEEK FOR SURGICAL PROCEDURE Source: patient Exam Limitations: no limitations History of Present Illness Date Seen by Provider: Nov 16, 2022 Time Seen by Provider: 14:50 Initial Comments 67-year-old male presents to the ED with complaints of no urinary output for 30 to 45 minutes prior to arrival. Reports that a blood clot broke loose, and now he has been able to urinate. States that yesterday he had a tumor removed from his bladder and a biopsy of his prostate. He was placed on Ciprofloxin antibiotic. Denies fevers, but reports chills, denies abdominal pain, nausea, vomiting. He was on Plavix, stop taking it approximately 1 week before surgery, and has not restarted it yet. Allergies and Home Medications Allergies Coded Allergies: ibuprofen (Verified Allergy, Unknown, 03/11/20) Patient Home Medication List Home Medication List Reviewed: Yes Acetaminophen (Tylenol Extra Strength) 500 Mg Tablet, 1,000 MG PO Q6H PRN for PAIN-MILD (1-4), (Reported) Entered as Reported by: CATHY PARRA on 03/11/20 1036 Atorvastatin Calcium (Atorvastatin Calcium) 80 Mg Tablet, 80 MG PO HS, (Reported) Entered as Reported by: ARTIE BARAKAT on 03/08/20 1040 Docusate Sodium (Stool Softener) 100 Mg Capsule, 200 MG PO BID PRN for CONSTIPATION-1ST LINE, (Reported) Entered as Reported by: CATHY PARRA on 03/11/20 1036 Metoprolol Succinate (Metoprolol Succinate) 25 Mg Tab.er.24h, 12.5 MG PO HS, (Reported) Entered as Reported by: ARTIE BARAKAT on 03/08/20 1040 Nirmatrelvir/Ritonavir (Paxlovid 150-100 mg Pack (Eua)) 150 Mg-100 Mg Tablet, (Reported) Entered as Reported by: RASHEED ALVARADO on 02/09/22 0041 Phenazopyridine HCl (Pyridium) 200 Mg Tablet, 1 TAB PO TID Prescribed by: ALIRIO GALVEZ on 09/28/20 0819 Sulfamethoxazole/Trimethoprim (Bactrim Ds Tablet) 1 Each Tablet, 1 EACH PO BID Prescribed by: ALIRIO GALVEZ on 09/28/20 0819 Tamsulosin HCl (Flomax) 0.4 Mg Cap, 0.4 MG PO 1800, (Reported) Entered as Reported by: ARTIE BARAKAT on 03/08/20 1040 Review of Systems Review of Systems Constitutional: see HPI Past Cndqbxm-Qdmqli-Fqjtpe Hx Patient Social History Tobacco Use?: No Use of E-Cig and/or Vaping dev: No Substance use?: No Alcohol Use?: No Pt feels they are or have been: No Immunizations Up To Date Influenza Vaccine Up-to-Date: Yes; Up-to-Date First/Initial COVID19 Vaccinat: YES Second COVID19 Vaccination Miguel: YES Third COVID19 Vaccination Date: YES Seasonal Allergies Seasonal Allergies: Yes Past Medical History Surgery/Hospitalization HX: cardiac stents, htn, high cholesterol, bph BLADDER TUMORS REMOVED X3 Surgeries: Yes (NECK SURGERY;CARDIAC CATH-STENTS X 4; TURBT 03/10/20 ) Bladder Surgery, Orthopedic Respiratory: No Currently Using CPAP: No Currently Using BIPAP: No Cardiac: Yes (CARDIAC CATH-STENTS X 4--2013) Hypertension, Palpitations, Syncope Neurological: No Genitourinary: Yes (TURBT 03/10/[address] CELESTIN) Benign Prostatic Hyperpl Gastrointestinal: No Musculoskeletal: Yes Arthritis, Chronic Back Pain Endocrine: No HEENT: Yes (glasses, no teeth) Cancer: Yes Bladder Psychosocial: No Integumentary: No Blood Disorders: No Physical Exam Vital Signs Vital Signs - First Documented 11/16/22 14:20 Temp 36.8 Pulse 103 Resp 16 B/P (MAP) 125/69 (87) Pulse Ox 93 Capillary Refill : Less Than 3 Seconds Height, Weight, BMI Height: '" Weight: lbs. oz. kg; 33.00 BMI Method: General Appearance: WD/WN, no apparent distress Neck: supple, normal inspection Cardiovascular: no edema, no gallop, no JVD, no murmur, tachycardia Respiratory: lungs clear, normal breath sounds, no respiratory distress, no accessory muscle use Gastrointestinal: non tender (Suprapubic region) Extremities: normal range of motion, normal inspection Neurologic/Psychiatric: alert, normal mood/affect Skin: normal color, warm/dry Progress/Results/Core Measures Suspected Sepsis SIRS Temperature: Pulse: 103 Respiratory Rate: 16 Blood Pressure 125 /69 Mean: 87 Results/Orders Lab Results Laboratory Tests Test 11/16/22 15:23 Range/Units Urine Color RED H Urine Clarity TURBID Urine pH 6.5 5-9 Urine Specific Dunbar 1.015 L 1.016-1.022 Urine Protein 3+ H NEGATIVE Urine Glucose (UA) TRACE H NEGATIVE Urine Ketones 1+ H NEGATIVE Urine Nitrite POSITIVE H NEGATIVE Urine Bilirubin 3+ H NEGATIVE Urine Urobilinogen >=8.0 < = 1.0 MG/DL Urine Leukocyte Esterase 2+ H NEGATIVE Urine RBC (Auto) 3+ H NEGATIVE Urine RBC TNTC H /HPF Urine WBC 5-10 H /HPF Urine Squamous Epithelial Cells NONE /HPF Urine Crystals NONE /LPF Urine Bacteria NEGATIVE /HPF Urine Casts NONE /LPF Urine Mucus NEGATIVE /LPF Urine Culture Indicated YES My Orders Orders - EFRA MUSE APRN Ua Culture If Indicated (11/16/22 15:02) Urine Culture (11/16/22 15:23) Vital Signs/I&O 11/16/22 11/16/22 14:20 16:11 Temp 36.8 Pulse 103 82 Resp 16 16 B/P (MAP) 125/69 (87) 120/65 Pulse Ox 93 93 Capillary Refill : Less Than 3 Seconds Blood Pressure Mean: 87 Progress Note : Time: 14:57 Progress Note Patient seen and evaluated, resting comfortably, no acute distress. Nursing staff flushed the catheter with small amount of saline, which released several blood clots. Urine seems to be flowing now. Bladder scan performed, no urine noted in bladder. Will obtain urinalysis. Urinalysis shows 3+ protein, trace glucose, 1+ ketones, positive nitrates, 3+ bilirubin, RBCs show too many to count, WBC 5-10. Patient already on antibiotic for UTI. Patient's urine previously showed bilirubin, most recent LFTs in January 2022 were normal. Results discussed with patient. Patient instructed to continue taking antibiotic as prescribed. Discharge directions and return precautions provided. Departure Impression Primary Impression: Hematuria Additional Impression: Urinary retention Disposition: 01 HOME, SELF-CARE Condition: Stable Departure-Patient Inst. Decision time for Depature: 15:49 Referrals: FELIX HARRINGTON DO (PCP/Family) Primary Care Physician Patient Instructions: Blood in the Urine (Hematuria) in Adults Add. Discharge Instructions: Follow-up with urology as scheduled. Continue taking your antibiotic as prescribed. Return for no urinary output, or any other new, concerning, worsening symptoms. EFRA MUSE APRN Nov 16, 2022 14:57
[2022-11-16 15:33] LABS: CLARITY,URINE TURBID; COLOR,URINE RED; GLUCOSE, URINE (UA) TRACE (NEGATIVE); KETONES,URINE 1+ (NEGATIVE); LEUKOCYTE ESTERASE ,URINE 2+ (NEGATIVE); NITRITE,URINE POSITIVE (NEGATIVE); PH,URINE 6.5 (5-9); PROTEIN,URINE 3+ (NEGATIVE)
[2022-11-16 15:38] LABS: BILIRUBIN,URINE 3+ (NEGATIVE)
[2022-11-16 15:43] LABS: BACTERIA,URINE NEGATIVE /HPF; RBC,URINE TNTC /HPF
[2022-11-16 16:11] VITALS: BP 120/65
== END 2022-11-16 16:20 | disposition home or self-care (01) ==
LOC: EDUNIT# 14:03 → ER 14:05
DX: N40.1 Benign prostatic hyperplasia with lower urinary tract symptoms (principal); R33.8 Other retention of urine; N39.0 Urinary tract infection, site not specified; Z79.2 Long term (current) use of antibiotics; Z79.02 Long term (current) use of antithrombotics/antiplatelets
CPT/HCPCS: 81000; 87088; 99282

== ENCOUNTER 2022-11-20 22:10 | Emergency (ER) | payer MEDICARE, MEDICAID ==
[~2022-11-20] VITALS: Ht 172.7 cm; Wt 100.0 kg
[2022-11-20 22:20] VITALS: BP 168/103
--- NOTE | 2022-11-20 22:42 | ED GU-Male ---
General Chief Complaint: Catheter/Drain/Tube Problems Stated Complaint: CATHETER PLUGGED Source: patient History of Present Illness Date Seen by Provider: Nov 20, 2022 Time Seen by Provider: 22:25 Initial Comments PT ARRIVES VIA POV FROM HOME PT HAD SURGERY FOR BLADDER CANCER ( REMOVAL OF TUMOR AND PROSTATE BIOPSY) LAST SATURDAY BY DR. BACA AT [facility], AND HAS HAD A CHAUDHRY CATHETER IN PLACE SINCE THEN HE WAS HERE 4 DAYS AGO ( 11/16/22), FOR A BLOCKED CATHETER. HE HAD A BLOOD CLOT THAT WAS CAUSING THE BLOCKAGE. HE STATES HE HAS BEEN DRINKING LOTS OF FLUIDS, AND WAS DOING OK UNTIL A FEW HOURS AGO HE LAST EMPTIED HIS CHAUDHRY BAG SEVERAL HOURS AGO, AND HAS NOT PASSED HARDLY ANY URINE SINCE THEN, AND HE HAS ALOT OF BLADDER PRESSURE AND BELIEVES THAT THE CATHETER IS BLOCKED AGAIN. HE HAS NOT HAD ANY FEVER. HE HAS BEEN OFF HIS PLAVIX SINCE 1 WEEK BEFORE SURGERY AND HAS NOT RESTARTED IT YET. HE HAS NOT NOTICED ANY GROSS BLOOD IN HIS URINE SINCE HE WAS HERE 4 DAYS AGO. HE HAS BEEN ON CIPRO ANTIBIOTIC SINCE SURGERY AND FINISHED IT YESTERDAY. HE CALLED DR. BACA'S OFFICE TODAY, BUT DID NOT GO TO HIS OFFICE TODAY. HE HAS A FOLLOW UP APPOINTMENT WITH DR. DORADO IN 2 DAYS 11/22/22 PCP: DR. HARRINGTON LIBRARIAN SPECIAL COLLECTIONS: DR. MALIN UROLOGIST: DR. BACA Allergies and Home Medications Allergies Coded Allergies: ibuprofen (Verified Allergy, Unknown, 03/11/20) Patient Home Medication List Home Medication List Reviewed: Yes Acetaminophen (Tylenol Extra Strength) 500 Mg Tablet, 1,000 MG PO Q6H PRN for PAIN-MILD (1-4), (Reported) Entered as Reported by: CATHY PARRA on 03/11/20 1036 Atorvastatin Calcium (Atorvastatin Calcium) 80 Mg Tablet, 80 MG PO HS, (Reported) Entered as Reported by: ARTIE BARAKAT on 03/08/20 1040 Docusate Sodium (Stool Softener) 100 Mg Capsule, 200 MG PO BID PRN for CONSTIPATION-1ST LINE, (Reported) Entered as Reported by: CATHY PARRA on 03/11/20 1036 Metoprolol Succinate (Metoprolol Succinate) 25 Mg Tab.er.24h, 12.5 MG PO HS, (Reported) Entered as Reported by: ARTIE BARAKAT on 03/08/20 1040 Nirmatrelvir/Ritonavir (Paxlovid 150-100 mg Pack (Eua)) 150 Mg-100 Mg Tablet, (Reported) Entered as Reported by: RASHEED ALVARADO on 02/09/22 0041 Phenazopyridine HCl (Pyridium) 200 Mg Tablet, 1 TAB PO TID Prescribed by: ALIRIO GALVEZ on 09/28/20 08 Sulfamethoxazole/Trimethoprim (Bactrim Ds Tablet) 1 Each Tablet, 1 EACH PO BID Prescribed by: ALIRIO GALVEZ on 09/28/20 08 Tamsulosin HCl (Flomax) 0.4 Mg Cap, 0.4 MG PO 1800, (Reported) Entered as Reported by: ARTIE BARAKAT on 03/08/20 1040 Review of Systems Review of Systems Constitutional: no symptoms reported Genitourinary: see HPI Past Nsioowy-Tlrycj-Grmlsl Hx Patient Social History Tobacco Use?: Yes Tobacco type used: Cigarettes Smoking Status: Former Smoker Substance use?: No Alcohol Use?: No Immunizations Up To Date First/Initial COVID19 Vaccinat: YES Second COVID19 Vaccination Miguel: YES Third COVID19 Vaccination Date: YES Seasonal Allergies Seasonal Allergies: Yes Past Medical History Surgery/Hospitalization HX: cardiac stents, htn, high cholesterol, bph BLADDER TUMORS REMOVED X3 Surgeries: Yes (NECK SURGERY;CARDIAC CATH-STENTS X 4; TURBT 03/10/20 ) Bladder Surgery, Cardiac, Coronary Stent, Orthopedic Respiratory: No Currently Using CPAP: No Currently Using BIPAP: No Cardiac: Yes (CARDIAC CATH-STENTS X 4--2012;LOOP RECORDER) Coronary Artery Disease, High Cholesterol, Hypertension, Palpitations, Syncope Neurological: No Genitourinary: Yes (TURBT 03/10/[address] CELESTIN; BLADDER CANCER SURGERY 11/15/[address] BACA) Benign Prostatic Hyperpl, Prostate Problems Gastrointestinal: No Musculoskeletal: Yes Arthritis, Chronic Back Pain Endocrine: No HEENT: Yes (glasses, no teeth) Cancer: Yes Bladder Psychosocial: No Integumentary: No Blood Disorders: No Family Medical History SOCIAL HISTORY: -SMOKED AT LEAST 1 PPD, QUIT 02/2013 -[facility]OH--DENIES USE -DRUGS--DENIES USE PAST SURGICAL HISTORY: -CERVICAL SPINE SURGERY -CARDIAC CATHS WITH STENTS X 4 IN 201202/13/2006--CARDIAC CATH DONE BY DR. MALIN: -MILD CORONARY ARTERY DISEASE, WITH EF 60%. NO INTERVENTION STRESS TEST DONE BY DR. MALIN 04/18/21: -CONCLUSIONS: 1. Lateral wall myocardial infarction without significant ischemia. 2. Lateral wall akinesis. 3. Well preserved global left ventricular systolic function with a calculated ejection fraction of 73%. 11/21/21--LOOP RECORDER PLACED BY DR. MALIN: PROCEDURE: Implantable loop recorder implantation. INDICATIONS: The patient is a 66-year-old man who has been experiencing palpitations that are infrequent, but quite bothersome. Implantable loop recorder implantation was carried out today after having obtained an informed consent. DESCRIPTION OF PROCEDURE: [facility] The left prepectoral area was prepared and draped in the usual sterile fashion. Lidocaine 1% was used for local anesthesia. We used the tools provided with the Medtronic LINQ II device to make a pocket anterior to the fourth intercostal space on the left side into which the device was placed and the wound edges were closed using Dermabond and Steri-Strips. The serial number of the device is [id number]. He tolerated the procedure well. 03/10/2020--TURBT/ RESECTION OF BLADDER TUMORS BY DR. CELESTIN 09/28/2020--TURBT / RESECTION OF MULTIPLE BLADDER TUMORS BY DR. CELESTIN 11/15/22--TURBT / RESECTION OF BLADDER TUMORS AND PROSTATE BIOPSY BY DR. BACA AT [facility] Physical Exam Vital Signs Vital Signs - First Documented 11/20/22 22:20 Temp 36.7 Pulse 83 Resp 16 B/P (MAP) 168/103 (124) Pulse Ox 96 Capillary Refill : Height, Weight, BMI Height: '" Weight: lbs. oz. kg; 33.00 BMI Method: General Appearance: WD/WN, no apparent distress, obese Gastrointestinal: tenderness (OVER DISTENDED BLADDER) Male: other (CHAUDHRY IN PLACE, NO LEAKING AROUND THE CATHETER, AND NO GROSS BLOOD IN CHAUDHRY TUBING OR BAG OR AROUND THE CATHETER. ) Progress/Results/Core Measures Suspected Sepsis SIRS Temperature: Pulse: Respiratory Rate: Blood Pressure / Mean: Results/Orders Vital Signs/I&O 11/20/22 22:20 Temp 36.7 Pulse 83 Resp 16 B/P (MAP) 168/103 (124) Pulse Ox 96 Capillary Refill : Progress Note : Progress Note THERE IS APPROXIMATELY 50 ML OF URINE IN CHAUDHRY BAG ON ARRIVAL. CATHETER EASILY FLUSHED WITH IMMEDIATE RETURN OF APPROXIMATELY 400 ML OF NON- BLOODY URINE, AND IMMEDIATE RELIEF OF SYMPTOMS. REVIEWED PRIOR RECORDS INCLUDING ER VISITS, ADMITS/H&P'S/DISCHARGE SUMMARIES, TESTS/ PROCEDURES DISCUSSED ANTICIPATED COURSE, AND IMPORTANCE OF FOLLOW UP WITH DR. BACA IN 2 DAYS, AND RETURN PRECAUTIONS. Departure Impression Primary Impression: CHAUDHRY CATHETER OBSTRUCTION Additional Impression: Bladder tumor Disposition: HOME, SELF-CARE Condition: Improved Departure-Patient Inst. Decision time for Depature: 22:45 Referrals: FELIX HARRINGTON DO (PCP/Family) Primary Care Physician Patient Instructions: How to Care for Your Chaudhry Catheter, Male Add. Discharge Instructions: CONTINUE ALL PREVIOUS INSTRUCTIONS FROM DR. BACA FOLLOW UP WITH DR. BACA THIS WEEK SCHEDULED RETURN TO ER IF SYMPTOMS RETURN. All discharge instructions reviewed with patient and/or family. Voiced understanding. KORTNEY URIOSTEGUI DO Nov 20, 2022 22:42
== END 2022-11-20 22:55 | disposition home or self-care (01) ==
LOC: EDUNIT# 22:10 → ER 22:11
DX: T83.098A Other mechanical complication of other urinary catheter, initial encounter (principal); D49.4 Neoplasm of unspecified behavior of bladder; Y82.9 Unspecified medical devices associated with adverse incidents; Z87.891 Personal history of nicotine dependence; Z98.890 Other specified postprocedural states
CPT/HCPCS: 99282

== ENCOUNTER 2022-11-21 20:50 | Emergency (ER) | payer MEDICARE, MEDICAID ==
[~2022-11-21] VITALS: Ht 172.7 cm; Wt 100.0 kg
[2022-11-21 20:55] VITALS: BP 157/82
--- NOTE | 2022-11-21 21:05 | ED GU-Male ---
General Stated Complaint: CATHETER PLUGGED Source: patient, old records History of Present Illness Date Seen by Provider: Nov 21, 2022 Time Seen by Provider: 20:56 Initial Comments PT ARRIVES VIA POV FROM HOME PT HAD TURBT AND PROSTATE BIOPSY LAST SATURDAY BY DR. BACA AT [facility] IN [place] HE HAS HAD A CHAUDHRY CATHETER IN PLACE SINCE SURGERY. HE HAS AN APPOINTMENT WITH DR. BACA AT 0830 TOMORROW MORNING FOR FOLLOW UP AND IS SUPPOSED TO GET THE CATHETER REMOVED THEN. THIS IS HIS 3RD ER VISIT SINCE SURGERY FOR BLOCKED CATHETER, INCLUDING LAST NIGHT. HE STATES IT HAS BEEN SEVERAL HOURS SINCE HE LAST EMPTIED THE BAG, AND CURRENTLY HAS 50 ML URINE IN THE BAG, AND HE STATES HE HAS NOT HAD ANY URINE IN THE BAG FOR SEVERAL HOURS HE ALSO STATES HE HAS BEEN LEAKING URINE AROUND THE CATHETER LAST NIGHT THE CATHTER WAS VERY EASILY FLUSHED AND HAD AN IMMEDIATE RETURN OF URINE HE HAS NOT HAD ANY OBVIOUS BLOOD IN HIS URINE FOR SEVERAL DAYS. HE IS PASSING SOME DEBRIS, BUT URINE IS OTHERWISE CLEAR. HE IS COMPLAINING OF PRESSURE OVER HIS BLADDER. NO FEVER NO NAUSEA/VOMITING NO BACK/FLANK PAIN PCP: DR. HARRINGTON UROLOGIST: DR. BACA Allergies and Home Medications Allergies Coded Allergies: ibuprofen (Verified Allergy, Unknown, 03/11/20) Patient Home Medication List Home Medication List Reviewed: Yes Acetaminophen (Tylenol Extra Strength) 500 Mg Tablet, 1,000 MG PO Q6H PRN for PAIN-MILD (1-4), (Reported) Entered as Reported by: CATHY PARRA on 03/11/20 1036 Atorvastatin Calcium (Atorvastatin Calcium) 80 Mg Tablet, 80 MG PO HS, (Reported) Entered as Reported by: ARTIE BARAKAT on 03/08/20 1040 Docusate Sodium (Stool Softener) 100 Mg Capsule, 200 MG PO BID PRN for CONSTIPATION-1ST LINE, (Reported) Entered as Reported by: CATHY PARAR on 03/11/20 1036 Metoprolol Succinate (Metoprolol Succinate) 25 Mg Tab.er.24h, 12.5 MG PO HS, (Reported) Entered as Reported by: ARTIE BARAKAT on 03/08/20 1040 Nirmatrelvir/Ritonavir (Paxlovid 150-100 mg Pack (Eua)) 150 Mg-100 Mg Tablet, (Reported) Entered as Reported by: RASHEED ALVARADO on 02/09/22 0041 Phenazopyridine HCl (Pyridium) 200 Mg Tablet, 1 TAB PO TID Prescribed by: ALIRIO GALVEZ on 09/28/20 08 Sulfamethoxazole/Trimethoprim (Bactrim Ds Tablet) 1 Each Tablet, 1 EACH PO BID Prescribed by: ALIRIO GALVEZ on 09/28/20 0819 Tamsulosin HCl (Flomax) 0.4 Mg Cap, 0.4 MG PO 1800, (Reported) Entered as Reported by: ARTIE BARAKAT on 03/08/20 1040 Review of Systems Review of Systems Constitutional: no symptoms reported Genitourinary: see HPI Past Ggkgebj-Sggjdl-Fceyqu Hx Immunizations Up To Date First/Initial COVID19 Vaccinat: SPRING 2020 Second COVID19 Vaccination Miguel: SPRING 2020 Third COVID19 Vaccination Date: YES Seasonal Allergies Seasonal Allergies: Yes Past Medical History Surgery/Hospitalization HX: BLADDER CANCER/TERP/HTN/HYPERLIPIDEMIA/BPH Surgeries: Yes (NECK SURGERY;CARDIAC CATH-STENTS X 4; TURBT 03/10/20 ) Bladder Surgery, Cardiac, Coronary Stent, Orthopedic Respiratory: No Currently Using CPAP: No Currently Using BIPAP: No Cardiac: Yes (CARDIAC CATH-STENTS X 4--2012;LOOP RECORDER) Coronary Artery Disease, High Cholesterol, Hypertension, Palpitations, Syncope Neurological: No Genitourinary: Yes (TURBT 03/10/[address] CELESTIN; BLADDER CANCER SURGERY 11/15/[address] BACA) Benign Prostatic Hyperpl, Prostate Problems Gastrointestinal: No Musculoskeletal: Yes Arthritis, Chronic Back Pain Endocrine: No HEENT: Yes (glasses, no teeth) Cancer: Yes Bladder Psychosocial: No Integumentary: No Blood Disorders: No Family Medical History SOCIAL HISTORY: -SMOKED AT LEAST 1 PPD, QUIT 02/2013 -ETOH--DENIES USE -DRUGS--DENIES USE PAST SURGICAL HISTORY: -CERVICAL SPINE SURGERY -CARDIAC CATHS WITH STENTS X 4 IN 201202/13/2006--CARDIAC CATH DONE BY DR. MALIN: -MILD CORONARY ARTERY DISEASE, WITH EF 60%. NO INTERVENTION STRESS TEST DONE BY DR. MALIN 04/18/21: -CONCLUSIONS: 1. Lateral wall myocardial infarction without significant ischemia. 2. Lateral wall akinesis. 3. Well preserved global left ventricular systolic function with a calculated ejection fraction of 73%. 11/21/21--LOOP RECORDER PLACED BY DR. MALIN: PROCEDURE: Implantable loop recorder implantation. INDICATIONS: The patient is a 66-year-old man who has been experiencing palpitations that are infrequent, but quite bothersome. Implantable loop recorder implantation was carried out today after having obtained an informed consent. DESCRIPTION OF PROCEDURE: [facility] The left prepectoral area was prepared and draped in the usual sterile fashion. Lidocaine 1% was used for local anesthesia. We used the tools provided with the [employer] LINQ II device to make a pocket anterior to the fourth intercostal space on the left side into which the device was placed and the wound edges were closed using Dermabond and Steri-Strips. The serial number of the device is [id number]. He tolerated the procedure well. 03/10/2020--TURBT/ RESECTION OF BLADDER TUMORS BY DR. CELESTIN 09/28/2020--TURBT / RESECTION OF MULTIPLE BLADDER TUMORS BY DR. CELESTIN 11/15/22--TURBT / RESECTION OF BLADDER TUMORS AND PROSTATE BIOPSY BY DR. BACA AT [facility] Physical Exam Vital Signs Vital Signs - First Documented 11/21/22 20:55 Temp 36.4 Pulse 96 Resp 16 B/P (MAP) 157/82 (107) Capillary Refill : Height, Weight, BMI Height: '" Weight: lbs. oz. kg; 33.00 BMI Method: General Appearance: WD/WN, no apparent distress, obese, other (WALKS IN ON HIS OWN WITHOUT DIFFICULTY) Cardiovascular: regular rate, rhythm, no murmur Respiratory: normal breath sounds Gastrointestinal: distended (BLADDER DISTENDED), tenderness (SUPRAPUBIC TENDERNESS), other (THERE IS NO CURRENT EVIDENCE OF LEAKING AROUND THE CATHETER. CATHETER TUBING IS COMPLETELY DRY. ) Extremities: normal capillary refill Neurologic/Psychiatric: no motor/sensory deficits, alert, normal mood/affect, oriented x 3 Skin: normal color, warm/dry Progress/Results/Core Measures Suspected Sepsis SIRS Temperature: Pulse: Respiratory Rate: Blood Pressure / Mean: Results/Orders Vital Signs/I&O 11/21/22 20:55 Temp 36.4 Pulse 96 Resp 16 B/P (MAP) 157/82 (107) Capillary Refill : Progress Note : Progress Note UNABLE TO FLUSH CATHETER TONIGHT AFTER DISCUSSING WITH DR. BACA, CATHETER WAS REMOVED, AND PT WAS ABLE TO IMMEDIATELY VOID > 200 ML URINE WITH DEBRIS INCLUDING A LARGE "CLUMP" OF DEBRIS. URINE IS OTHER THRASHER CLEAR. IMMEDIATE RELIEF OF SYMPTOMS PT FEELS COMFORTABLE GOING HOME Departure Communication (Admissions) 2118--CALLED [facility]. 2120--SPOKE WITH DR. BACA, HE ADVISES TO GO AHEAD AND REMOVE CATHETER, AND HE WILL SEE PT IN THE MORNING SCHEDULED. Impression Primary Impression: CHAUDHRY CATHETER OBSTRUCTION Disposition: 01 HOME, SELF-CARE Condition: Improved Departure-Patient Inst. Decision time for Depature: 21:40 Referrals: FELIX HARRINGTON DO (PCP/Family) Primary Care Physician Patient Instructions: Urinary Obstruction (DC) Add. Discharge Instructions: CONTINUE ALL PREVIOUS POST OP INSTRUCTIONS KEEP YOUR APPOINTMENT IN THE MORNING WITH DR. BACA. RETURN TO ER IF YOU HAVE ANY PROBLEMS KORTNEY URIOSTEGUI DO Nov 21, 2022 21:05
== END 2022-11-21 21:51 | disposition home or self-care (01) ==
LOC: EDUNIT# 20:50 → ER 20:51
DX: T83.098A Other mechanical complication of other urinary catheter, initial encounter (principal); R10.30 Lower abdominal pain, unspecified; Z85.51 Personal history of malignant neoplasm of bladder; Z98.890 Other specified postprocedural states; Z87.891 Personal history of nicotine dependence; Y82.9 Unspecified medical devices associated with adverse incidents
CPT/HCPCS: 99282

== ENCOUNTER 2023-03-21 13:44 | Outpatient (CLI) | payer MEDICARE, MEDICAID ==
[~2023-03-21] VITALS: Ht 172.7 cm; Wt 110.1 kg
[2023-03-21] MEDS ORDERED: CLOP75TA28 PO (14:51)
[2023-03-22] MEDS ORDERED: ACHD5005 PO (12:45)
== END 2023-03-21 14:48 ==
LOC: PREOP 13:44
PROVIDERS: ATTEND Surgery
DX: Z01.818 Encounter for other preprocedural examination (principal)

== ENCOUNTER 2023-03-22 08:16 | Day surgery (SDC) | payer MEDICARE, MEDICAID ==
[2023-03-22] VITALS (11 sets, daily range): BP systolic 95–133; BP diastolic 50–83
[~2023-03-22] VITALS: Ht 172.7 cm; Wt 110.1 kg
--- NOTE | 2023-03-22 08:45 | Progress Note-Pre Operative ---
Pre-Operative Progress Note Date H&P Reviewed: Mar 22, 2023 Time H&P Reviewed: 08:44 History & Physical: H&P Reviewed, Patient Examed Pre-Operative Diagnosis: left neck cyst, scrotal lesion BIRD JOHNSON DO Mar 22, 2023 08:45
[2023-03-22] MEDS: LACTATED RINGERS 1,000 ML IV PRN ×2 (08:50→12:22)
[2023-03-22] MEDS ORDERED: ceFAZolin INJECTION 2,000 MG in NS (IVPB) 50 ML 50 ML IV ONE (09:00)
[2023-03-22] MEDS ORDERED: LIDOCAINE/EPI 1%-1:100,000 (XYLOCAINE) 20ML ONE ×2 (09:20→11:26)
[2023-03-22] MEDS ORDERED: LIDOCAINE PF 2% 5 ML (XYLOCAINE) VIAL ONE (11:24)
[2023-03-22] MEDS ORDERED: fentaNYL INJECTION 100 MCG/2 ML VIAL ONE (11:24)
[2023-03-22] MEDS ORDERED: ONDANSETRON 4 MG/2 ML (SDV) Z0FRAN ONE (11:24)
[2023-03-22] MEDS ORDERED: MIDAZOLAM 2 MG/2 ML (VERSED) VIAL ONE (11:24)
[2023-03-22] MEDS ORDERED: proPOfol 200 MG/20 ML (DIPRIVAN) VIAL IV ONE (11:24)
[2023-03-22] MEDS ORDERED: LIDOCAINE/EPI 1%-1:100,000 (XYLOCAINE) 20ML INJ ONE (12:07)
[2023-03-22] MEDS ORDERED: SEVOFLURANE (ULTANE) 15 ML INHAL SOLN ONE (12:15)
--- NOTE | 2023-03-22 12:23 | Anesthesia-General Post-Op ---
General Patient Condition Mental Status/LOC: Same as Preop Cardiovascular: Satisfactory Nausea/Vomiting: Absent Respiratory: Satisfactory Pain: Controlled Complications: Absent Post Op Complications Complications None Follow Up Care/Instructions Patient Instructions None needed. Anesthesia/Patient Condition Patient Condition Patient is doing well, no complaints, stable vital signs, no apparent adverse anesthesia problems. No complications reported per nursing. DIANN WOLFF CRNA Mar 22, 2023 12:23
[2023-03-22] MEDS ORDERED: ONDANSETRON 4 MG/2 ML (SDV) Z0FRAN IVP PRN (12:30)
[2023-03-22] MEDS ORDERED: morphine INJ 10 MG/ML 1ML (SYR OR VIAL) IVP ONE (12:30)
[2023-03-22] MEDS ORDERED: ACHD5005 PO (12:45)
--- NOTE | 2023-03-22 12:46 | Discharge Inst-Simple/Standard ---
Discharge Inst-Standard Discharge Medications New, Converted or Re-Newed RX: Transmitted to Pharmacy Patient Instructions/Follow Up Plan of Care/Instructions/FU: 2 weeks Reginaldo Activity as Tolerated: No Discharge Diet: Regular Diet Other Inst to Patient Follow up Appt: Make appointment for 2 week. Instructions: No strenuous activity. May shower in 24 hours, no tub bath or soaking. Use incentive spirometer at home as directed. No Smoking Skin/Wound Care: You have stitches, keep area clean and dry. No tub bath or swimming. May shower. Symptoms to Report: Appetite Changes, Extremity Discoloration, Numbness/Tingling, Swelling Increased, Bleeding Excessive, Eyesight Changes, Pain Increased, Urine Color Change, Constipation(Persistent), Fever over 101 degree F, Pain/Pressure in chest, Urinating Difficulty, Cough Up/Vomit Blood, Heart Beat Irreg/Pounding, Pain/Pressure in jaw, Vaginal Bleeding Increase, Cramps in feet or legs, Lightheadedness, Pain/Pressure in shoulder, Diarrhea(Persistent), Memory Changes Suddenly, Questions/Concerns, Weight gain consecutive days, Dizziness/Fainting, Nausea/Vomiting, Shortness of Breath, Weight gain over 2 pounds If questions or concerns contact your physician Or seek help at emergency department. BIRD JOHNSON DO Mar 22, 2023 12:46
--- NOTE | 2023-03-22 19:38 | OPERATIVE REPORT ---
DATE OF SERVICE: 03/22/2023 PREOPERATIVE DIAGNOSES: Left neck cyst and scrotal lesion. POSTOPERATIVE DIAGNOSES: Left neck cyst and scrotal lesion. PROCEDURE: Excision of left neck cyst 3.3 x 1.5 cm and scrotal lesion excision 2.7 x 1.8 cm. SURGEON: Bird Hair DO ANESTHESIA: General. ESTIMATED BLOOD LOSS: Minimal. COMPLICATIONS: None. INDICATIONS: The patient is a 68-year-old male with a left neck cyst and a scrotal lesion that he wishes to have these removed. He understands risks and benefits of procedure and wished to proceed. Consent was signed and on chart. DESCRIPTION OF PROCEDURE: The patient was taken to the operating suite where he was prepped and draped in sterile fashion. Timeout was performed. Local anesthetic was infiltrated around the neck lesion. An elliptical incision measuring 3.3 x 1.5 cm was made around the lesion. Skin and subcutaneous tissue was removed in entirety. The hemostasis was achieved. The skin was then closed using 3-0 nylon in a simple running fashion. The area was washed and dried and sterile bandage was applied. The scrotal lesion then had local anesthetic infiltrated around it. A #15 blade scalpel was used to make an incision around it. Cautery was used to remove the skin and subcutaneous tissue, removing the lesion measuring 2.7 x 1.8 cm. The skin was then closed using 3-0 chromic in a running fashion. The area was washed and dried and sterile bandage was applied. The patient tolerated the procedure well, no complications, taken to recovery room in stable condition. RECOMMENDATIONS: The patient will follow up in 2 weeks to discuss pathology results. Job ID: [id number] DocumentID: [id number] Dictated Date: 03/22/2023 16:18:06 Utility Hand Date: 03/22/2023 19:36:00 Dictated By: BIRD HAIR DO
== END 2023-03-22 14:07 ==
LOC: SDC 08:16
PROVIDERS: ATTEND Surgery
DX: L72.0 Epidermal cyst (principal); C63.2 Malignant neoplasm of scrotum; G47.33 Obstructive sleep apnea (adult) (pediatric); I25.10 Atherosclerotic heart disease of native coronary artery without angina pectoris; I70.219 Atherosclerosis of native arteries of extremities with intermittent claudication, unspecified extremity; I65.23 Occlusion and stenosis of bilateral carotid arteries; R94.31 Abnormal electrocardiogram [ECG] [EKG]; E66.9 Obesity, unspecified; E78.5 Hyperlipidemia, unspecified; E78.2 Mixed hyperlipidemia; Z68.37 Body mass index [BMI] 37.0-37.9, adult; Z99.81 Dependence on supplemental oxygen; Z79.899 Other long term (current) drug therapy; Z87.891 Personal history of nicotine dependence
CPT/HCPCS: 87081

== ENCOUNTER → 2023-03-25 | Outpatient (RCR) | payer MEDICARE, MEDICAID ==
[~2023-03-25] MED LIST changes: +ACHD5005 PO
== END | disposition home or self-care (01) ==
LOC: ONC 10:27
PROVIDERS: ATTEND Radiology Radiation Oncology
DX: C61 Malignant neoplasm of prostate (principal); C67.9 Malignant neoplasm of bladder, unspecified; Z87.891 Personal history of nicotine dependence; Z95.5 Presence of coronary angioplasty implant and graft
CPT/HCPCS: 99205

== ENCOUNTER → 2023-03-28 | Outpatient (CLI) | payer MEDICARE, MEDICAID | LOC: CARD 10:58 | PROVIDERS: ATTEND Nurse Practitioner Family | DX: I25.10 Atherosclerotic heart disease of native coronary artery without angina pectoris (principal) | CPT/HCPCS: 93306 ==

== ENCOUNTER 2023-04-09 00:36 | Inpatient (IN) | payer MEDICARE, MEDICAID ==
[2023-04-09] VITALS (29 sets, daily range): BP systolic 81–148; BP diastolic 55–98
[~2023-04-09] VITALS: Ht 172.7 cm; Wt 104.8 kg
[2023-04-09] MEDS ORDERED: ASPIRIN 81 MG CHEWABLE TABLET PO ONE (01:15)
--- NOTE | 2023-04-09 01:15 | ED Chest Pain ---
General Chief Complaint: Chest Pain Stated Complaint: HIGH BLOOD PRESSURE 166/100 Nursing Triage Note: SINCE 1930 ON 04/08/23 HAS HAD 4 EPISODES OF CHEST PAIN WITH NAUSEA, RADIATION OF PAIN TO THE LEFT JAW AND SHOULDER. AT THOSE TIMES BLOOD PRESSURE INCREASES THEN RETURNS TO NORMAL. HX OF CARDIAC STENTS. HAS A LOOP RECORDER. DR. PASCAL'S OFFICE CONTACTED HIS YESTERDAY AFTERNOON WITH NEW MEDICATIONS TO PULL OVER MACHINE OPERATOR FOR "AFIB SEEN ON MONITOR THE PREVIOUS NIGHT." PATIENT IS UNSURE IF THAT IS THE RIGHT TERM THE OFFICE SAID. History of Present Illness Date Seen by Provider: Apr 09, 2023 Time Seen by Provider: 01:13 Initial Comments Patient is a 68-year-old male who presents to the emergency department today with a chief complaint of 4 episodes of intermittent chest pain with nausea, shortness of breath and left-sided neck "stiffness". He states the first episode was around 7:00 this evening. Brief and resolved on its own without any medications. He states he noticed that his blood pressure was getting higher and higher throughout the evening with each episode. The last one occurred just prior to coming in to the emergency department and scared him. He has a history of cardiac stent placement in 2012. Dr. Pascal is his director workers compensation. He is scheduled for a chemical stress test in May. He states he was called by the cardiac clinic nurse last evening and told that last night while he was sleeping he had an episode of some "type of fib". He states they called in some medications for him to start taking tomorrow. On medicine reconciliation he has new prescriptions for diltiazem as well as Eliquis. He is currently on Plavix. He quit smoking in 2012. He states he never has a blood pressure above 150. He feels like he may have had some indigestion however he had a rather light meal for dinner, chicken noodles. Nothing heavy earlier in the day. He is pain-free at the time of my examination. His EKG is reviewed and is normal with occasional PVC. Blood pressure currently in the 130s systolic. Timing/Duration: 4-6 hours Severity/Quality: moderate, pressure Location: central Radiation: neck (left side) Activities at Onset: none Prior CP/Workup: cardiac cath, heart attack ASA po OFFSET PROOF PRESS OPERATOR: No NTG SL OFFSET PROOF PRESS OPERATOR: No Associated Symptoms: nausea/vomiting, shortness of breath (mild) Allergies and Home Medications Allergies Coded Allergies: ibuprofen (Verified Allergy, Unknown, 03/22/23) Patient Home Medication List Home Medication List Reviewed: Yes Atorvastatin Calcium (Atorvastatin Calcium) 80 Mg Tablet, 80 MG PO HS, (Reported) Entered as Reported by: ARTIE BARAKAT on 03/08/20 1040 Clopidogrel Bisulfate (Clopidogrel) 75 Mg Tablet, 75 MG PO DAILY, (Reported) Entered as Reported by: Ryanne Bruno on 03/21/23 1451 Hydrocodone/Acetaminophen (Hydrocodone-Acetamin 5-325 mg) 5 Mg-325 Mg Tablet, 1 EACH PO Q4H PRN for PAIN-MODERATE (5-7) Prescribed by: BIRD JOHNSON on 03/22/23 1245 Metoprolol Succinate (Metoprolol Succinate) 25 Mg Tab.er.24h, 12.5 MG PO HS, (Reported) Entered as Reported by: ARTIE BARAKAT on 03/08/20 1040 Tamsulosin HCl (Flomax) 0.4 Mg Cap, 0.4 MG PO 1800, (Reported) Entered as Reported by: ARTIE BARAKAT on 03/08/20 1040 Review of Systems Review of Systems Constitutional: see HPI EENTM: No Symptoms Reported Respiratory: Shortness of Air Cardiovascular: Chest Pain Gastrointestinal: Nausea Genitourinary: No Symptoms Reported Musculoskeletal: no symptoms reported Skin: no symptoms reported Psychiatric/Neurological: No Symptoms Reported Past Sclojzl-Omxazw-Fcsgbh Hx Immunizations Up To Date Tetanus Booster (TDap): Less than 5yrs First/Initial COVID19 Vaccinat: SPRING 2020 Second COVID19 Vaccination Miguel: SPRING 2020 Third COVID19 Vaccination Date: 2021 Seasonal Allergies Seasonal Allergies: Yes Past Medical History Surgery/Hospitalization HX: BLADDER CANCER/TERP/HTN/HYPERLIPIDEMIA/BPH Surgeries: Yes (NECK SURGERY;CARDIAC CATH-STENTS X 4; TURP 03/10/20 ) Bladder Surgery, Coronary Stent, Orthopedic Respiratory: No Currently Using CPAP: No Currently Using BIPAP: No Cardiac: Yes (CARDIAC CATH-STENTS X 4--2013;LOOP RECORDER) Coronary Artery Disease, High Cholesterol, Hypertension, Palpitations, Syncope Neurological: No Sexually Transmitted Disease: No Genitourinary: Yes (TURP 03/10/[address] CELESTIN; BLADDER CANCER SURGERY 11/15/[address] BACA) Benign Prostatic Hyperpl, Prostate Problems Gastrointestinal: No Musculoskeletal: Yes Degenerate Disk Disease, Arthritis, Fibromyalgia, Back Injury, Chronic Back Pain, Fractures Endocrine: No HEENT: Yes (glasses, no teeth) Tinnitis Loss of Vision: Denies Hearing Impairment: Hard of Hearing Cancer: Yes Bladder, Prostate, Skin What Type of Treatment Did You: Surgical Intervention, Other Psychosocial: No Integumentary: Yes (SKIN CA) Blood Disorders: No Adverse Reaction/Blood Tranf: No Family Medical History SOCIAL HISTORY: -SMOKED AT LEAST 1 PPD, QUIT 02/2013 -ETOH--DENIES USE -DRUGS--DENIES USE PAST SURGICAL HISTORY: -CERVICAL SPINE SURGERY -CARDIAC CATHS WITH STENTS X 4 IN 201202/13/2006--CARDIAC CATH DONE BY DR. PASCAL: -MILD CORONARY ARTERY DISEASE, WITH EF 60%. NO INTERVENTION STRESS TEST DONE BY DR. PASCAL 04/18/21: -CONCLUSIONS: 1. Lateral wall myocardial infarction without significant ischemia. 2. Lateral wall akinesis. 3. Well preserved global left ventricular systolic function with a calculated ejection fraction of 73%. 11/21/21--LOOP RECORDER PLACED BY DR. PASCAL: PROCEDURE: Implantable loop recorder implantation. INDICATIONS: The patient is a 66-year-old man who has been experiencing palpitations that are infrequent, but quite bothersome. Implantable loop recorder implantation was carried out today after having obtained an informed consent. DESCRIPTION OF PROCEDURE: [facility] The left prepectoral area was prepared and draped in the usual sterile fashion. Lidocaine 1% was used for local anesthesia. We used the tools provided with the [employer]tronic LINQ II device to make a pocket anterior to the fourth intercostal space on the left side into which the device was placed and the wound edges were closed using Dermabond and Steri-Strips. The serial number of the device is [id number]. He tolerated the procedure well. 03/10/2020--TURBT/ RESECTION OF BLADDER TUMORS BY DR. CELESTIN 09/28/2020--TURBT / RESECTION OF MULTIPLE BLADDER TUMORS BY DR. CELESTIN 11/15/22--TURBT / RESECTION OF BLADDER TUMORS AND PROSTATE BIOPSY BY DR. BACA AT [facility] Physical Exam Vital Signs Vital Signs - First Documented 04/09/23 00:55 Temp 37.2 Pulse 78 Resp 14 B/P (MAP) 136/85 Pulse Ox 95 O2 Delivery Room Air Capillary Refill : Height, Weight, BMI Height: '" Weight: lbs. oz. kg; 36.00 BMI Method: General Appearance: No Apparent Distress, WD/WN, Obese HEENT: PERRL/EOMI Neck: Full Range of Motion Respiratory: Lungs Clear, Normal Breath Sounds, No Accessory Muscle Use, No Respiratory Distress Cardiovascular: Regular Rate, Rhythm, Normal Peripheral Pulses Gastrointestinal: Non Tender, Soft Progress/Results/Core Measures Results/Orders Lab Results Laboratory Tests Test 04/09/23 00:56 Range/Units White Blood Count 8.6 4.3-11.0 10^3/uL Red Blood Count 4.57 4.30-5.52 10^6/uL Hemoglobin 14.6 13.3-17.7 g/dL Hematocrit 44 40-54 % Mean Corpuscular Volume 95 80-99 fL Mean Corpuscular Hemoglobin 32 25-34 pg Mean Corpuscular Hemoglobin Concent 34 32-36 g/dL Red Cell Distribution Width 12.3 10.0-14.5 % Platelet Count 210 130-400 10^3/uL Mean Platelet Volume 9.3 9.0-12.2 fL Immature Granulocyte % (Auto) 0 % Neutrophils (%) (Auto) 59 42-75 % Lymphocytes (%) (Auto) 27 12-44 % Monocytes (%) (Auto) 11 0-12 % Eosinophils (%) (Auto) 3 0-10 % Basophils (%) (Auto) 0 0-10 % Neutrophils # (Auto) 5.1 1.8-7.8 10^3/uL Lymphocytes # (Auto) 2.4 1.0-4.0 10^3/uL Monocytes # (Auto) 0.9 0.0-1.0 10^3/uL Eosinophils # (Auto) 0.2 0.0-0.3 10^3/uL Basophils # (Auto) 0.0 0.0-0.1 10^3/uL Immature Granulocyte # (Auto) 0.0 0.0-0.1 10^3/uL Prothrombin Time 14.3 12.2-14.7 SEC INR Comment 1.1 0.8-1.4 Activated Partial Thromboplast Time 36 H 24-35 SEC Sodium Level 141 135-145 MMOL/L Potassium Level 3.6 3.6-5.0 MMOL/L Chloride Level 108 H 98-107 MMOL/L Carbon Dioxide Level 24 21-32 MMOL/L Anion Gap 9 5-14 MMOL/L Blood Urea Nitrogen 10 7-18 MG/DL Creatinine 1.02 0.60-1.30 MG/DL Estimat Glomerular Filtration Rate 80 BUN/Creatinine Ratio 10 Glucose Level 127 H 70-105 MG/DL Calcium Level 8.6 8.5-10.1 MG/DL Corrected Calcium 8.7 8.5-10.1 MG/DL Magnesium Level 2.0 1.6-2.4 MG/DL Total Bilirubin 0.5 0.1-1.0 MG/DL Aspartate Amino Transf (AST/SGOT) 22 5-34 U/L Alanine Aminotransferase (ALT/SGPT) 19 0-55 U/L Alkaline Phosphatase 87 40-136 U/L Myoglobin 33.1 10.0-92.0 NG/ML Troponin I < 0.028 <0.028 NG/ML Total Protein 7.0 6.4-8.2 GM/DL Albumin 3.9 3.2-4.5 GM/DL My Orders Orders - ARANZA MONDRAGON MD Cbc With Automated Diff (04/09/23 01:13) Magnesium (04/09/23 01:13) Chest 1 View, Ap/Pa Only (04/09/23 01:13) Comprehensive Metabolic Panel (04/09/23 01:13) Myoglobin Serum (04/09/23 01:13) Protime With Inr (04/09/23 01:13) Partial Thromboplastin Time (04/09/23 01:13) O2 (04/09/23 01:13) Monitor-Rhythm Ecg Trace Only (04/09/23 01:13) Lipid Panel (04/10/23 06:00) Ed Iv/Invasive Line Start (04/09/23 01:13) Troponin I Nelson (04/09/23 01:13) Aspirin Chewable Tablet (Aspirin Chewabl (04/09/23 01:15) Ondansetron Injection (Zofran Injectio (04/09/23 03:00) Medications Given in ED Current Medications Medications Dose Ordered Sig/Jennifer Route Start Time Stop Time Status Last Admin Dose Admin Aspirin 324 mg ONCE ONCE PO 04/09/23 01:15 04/09/23 01:16 DC 04/09/23 01:17 324 MG Vital Signs/I&O 04/09/23 04/09/23 04/09/23 00:55 01:02 01:49 Temp 37.2 37.2 Pulse 78 78 Resp 14 14 B/P (MAP) 136/85 136/85 (102) Pulse Ox 95 95 95 O2 Delivery Room Air Room Air Room Air Blood Pressure Mean: 102 Progress Progress Note : Time: 02:30 Progress Note Patient seen and evaluated by me. Evaluation today includes physical exam, "cardiac work-up" to include CBC, Chem-12, magnesium, serum troponin, total CK, coags, EKG, single view chest x-ray. Pertinent physical exam findings well- developed well-nourished 68-year-old male morbid obesity with protuberant abdomen. Heart is regular with occasional ectopic beat. Lungs are clear. Abdomen is soft and benign. No lower extremity edema. No focal neurologic deficits. He is normotensive at presentation, no hypoxia, afebrile. Differential diagnosis based on history and physical exam, unstable angina, NSTEMI Labs independently reviewed and interpreted by me. Chest x-ray is also independently reviewed and interpreted by me. His CBC is completely normal. Chemistry is pertinent only for mildly elevated blood glucose at 127. Troponin is undetectable. His coags are normal except for a mildly elevated PTT at 36. EKG shows normal sinus rhythm with occasional PVC. No ST segment elevation or depression. Normal intervals. Chest x-ray is limited by body habitus but does not demonstrate any infiltrates, effusions. Patient is treated with 324 mg of aspirin. He also did develop a little nausea during his course in the emergency department and was given 4 mg of IV Zofran. I discussed his case presentation and findings with Dr. Cordova on for the hospitalist service who accepts the patient for observation admission to the cardiac stepdown unit. Dr. Flannery will be consulted in the morning for cardiology evaluation. Patient remained asymptomatic from chest pain throughout his stay here in the emergency department. Bridge orders are written Initial ECG Impression Date: Apr 09, 2023 Initial ECG Impression Time: 01:12 Initial ECG Rate: 77 Initial ECG Rhythm: Normal Sinus Initial ECG Intervals: Normal Comment PVC noted; Q waves III and aVF; no ST segment elevation or depression noted Diagnostic Imaging Diagonstic Imaging: Xray Comments CXR independently reviewed and interpreted by me - no infiltrate or effusion - limited by body habitus Departure Communication (Admissions) Time/Spoke to Admitting Phy: 02:[address] Cordova (Hospitalist) will admit to Cardiac Stepdown with Alma Delia consult this am Impression Primary Impression: Chest pain Qualified Codes: R07.9 - Chest pain, unspecified Additional Impression: History of CAD (coronary artery disease) Disposition: ADMITTED INPATIENT Condition: Stable Admissions Decision to Admit Reason: Admit from ER (General) Decision to Admit/Date: Apr 09, 2023 Time/Decision to Admit Time: 02:40 Departure-Patient Inst. Referrals: FELIX HARRINGTON DO (PCP/Family) Primary Care Physician Copy Copies To 1: FELIX HARRINGTON DO Copies To 2: LOYDA PASCAL MD FACP FACC CCDS ARANZA MONDRAGON MD Apr 09, 2023 01:14
[2023-04-09 01:18] LABS: BASOPHILS % (AUTO) 0 % (0-10); EOSINOPHILS # (AUTO) 0.2 10^3/uL (0.0-0.3); EOSINOPHILS % (AUTO) 3 % (0-10); HEMATOCRIT 44 % (40-54); HEMOGLOBIN 14.6 g/dL (13.3-17.7); LYMPHOCYTES # (AUTO) 2.4 10^3/uL (1.0-4.0); LYMPHOCYTES % (AUTO) 27 % (12-44); MEAN CORPUSCULAR HEMOGLOBIN 32 pg (25-34); MEAN CORPUSCULAR HGB CONC 34 g/dL (32-36); MEAN CORPUSCULAR VOLUME 95 fL (80-99); MEAN PLATELET VOLUME 9.3 fL (9.0-12.2); MONOCYTES # (AUTO) 0.9 10^3/uL (0.0-1.0); MONOCYTES % (AUTO) 11 % (0-12); NEUTROPHILS # (AUTO) 5.1 10^3/uL (1.8-7.8); NEUTROPHILS % (AUTO) 59 % (42-75); PLATELET COUNT 210 10^3/uL (130-400); WHITE BLOOD COUNT 8.6 10^3/uL (4.3-11.0)
[2023-04-09 01:23] LABS: ALBUMIN 3.9 GM/DL (3.2-4.5); CHLORIDE 108 MMOL/L (98-107); INR 1.1 (0.8-1.4); POTASSIUM 3.6 MMOL/L (3.6-5.0); PROTHROMBIN TIME PATIENT 14.3 SEC (12.2-14.7); SODIUM 141 MMOL/L (135-145)
[2023-04-09 01:25] LABS: CALCIUM 8.6 MG/DL (8.5-10.1)
[2023-04-09 01:26] LABS: GLUCOSE 127 MG/DL (70-105)
[2023-04-09 01:27] LABS: CARBON DIOXIDE 24 MMOL/L (21-32)
[2023-04-09 01:28] LABS: BILIRUBIN,TOTAL 0.5 MG/DL (0.1-1.0)
[2023-04-09 01:29] LABS: ALKALINE PHOSPHATASE 87 U/L (40-136)
[2023-04-09 01:30] LABS: CREATININE SERUM 1.02 MG/DL (0.60-1.30); GFR ESTIMATED 80
[2023-04-09 01:31] LABS: BUN/CREATININE RATIO 10
[2023-04-09 01:32] LABS: ALANINE AMINOTRANSFERASE 19 U/L (0-55)
[2023-04-09] MEDS ORDERED: ONDANSETRON 4 MG/2 ML (SDV) Z0FRAN IVP ONE (03:00)
[2023-04-09] MEDS ORDERED: RT-ALBUTEROL SULF 2.5 MG/3 ML PRE-MIX VIAL INH PRN (04:15)
[2023-04-09] MEDS ORDERED: ONDANSETRON 4 MG (ZOFRAN) ORAL DISSOLVE TAB PO PRN ×2 (04:30→20:15)
[2023-04-09] MEDS ORDERED: HYDROcodone/ACETAMINOPHEN 5 MG/325 MG TABLET PO PRN (04:30)
[2023-04-09] MEDS ORDERED: CALCIUM CARBONATE 500 MG CHEW TABLET PO PRN ×2 (04:30→20:15)
[2023-04-09] MEDS ORDERED: diphenhydrAMINE 25 MG TABLET PO PRN ×2 (04:30→20:15)
[2023-04-09] MEDS ORDERED: DOCUSATE SODIUM 100 MG CAPSULE PO PRN (04:30)
--- NOTE | 2023-04-09 06:55 | Diagnostic Imaging Report ---
HISTORY: Chest pain TECHNIQUE: Frontal view the chest COMPARISON: None FINDINGS: Lung volumes are normal. There is hazy airspace opacity at the lung bases, could be due to overlying soft tissue. There is no large effusion or pneumothorax seen. The cardiac silhouette is prominent, may be accentuated by technique. A color television console monitor device is noted. IMPRESSION: 1. Hazy basilar airspace opacities, may be due to atelectasis, infiltrate, or overlying soft tissue. 2. Mild cardiomegaly, likely accentuated by portable technique. Dictated by: Dictated on workstation # [id number]
--- NOTE | 2023-04-09 07:53 | Consultation-Cardiology ---
HPI-Cardiology Cardiology Consultation: Date of Consultation 04/09/23 Time Seen by a Provider: 08:15 Date of Admission 04-08-23 Attending Physician Dayton Gonzalez DO Admitting Physician Admitting Physician: Gabrielle Cordova DO Attending Physician: Gabrielle Cordova DO Consulting Physician Chelle Pascal MD HPI: Chief Complaint: Chest pain Mr. Abraham is a 68 yr old male admitted to ICU 3 from the ED with c/o CP. He reports yesterday evening around 7:30 pm. he developed abdominal bloating, chest pressure, belching, generally feeling unwell. He reports the discomfort lasted for longer than 30 minutes and then gradually resolved. He reports than again around 9:30 p.m. the same discomfort came back. He reports with both episodes his blood pressure was high, 170's systolic. He reports he generally felt unwell. He denies any SOB or palpitations. He reports he then decided to come to the ED. He reports that he has had some continued chest pressure and SOB during the night with some orthopnea. No c/o LE swelling. He reports he is very concerned about his stents since he has had to stop his Plavix d/t recent procedures for skin cancer removal. Review of Systems-Cardiology Review of Systems Constitutional: No chills, No fever Eyes: No vision change Ears/Nose/Throat: No epistaxis Respiratory: As described under HPI Cardiovascular: As described under HPI Gastrointestinal: As described under HPI; No constipation, No diarrhea, No vo miting Genitourinary: No dysuria, No hematuria Musculoskeletal: no symptoms reported Skin: No rash on exposed areas, No ulcerations on exposed areas Psychiatric/Neurological: No anxiety, No depression, No seizure, No focal weakness, No syncope Hematologic: No bleeding abnormalities SHS-Rnuubf-Wcinvp Hx Patient Social History Smoking Status: Never a Smoker 2nd Hand Smoke Exposure: No Alcohol Use?: No Pt feels they are or have been: No Immunizations Up To Date Tetanus Booster (TDap): Less than 5yrs Date of Pneumonia Vaccine: May 28, 2022 Date of Influenza Vaccine: May 28, 2022 Past Medical History PMH As described under Assessment. Family Medical History Family Medical History: Reports history of father having CAD. Allergies and Home Medications Allergies Coded Allergies: ibuprofen (Verified Allergy, Unknown, 03/22/23) Patient Home Medication List Acetaminophen (Tylenol Extra Strength) 500 Mg Tablet, 1,000 MG PO Q8H PRN for PAIN-MILD (1-4), (Reported) Entered as Reported by: CATHY PARRA on 04/09/23 1318 Last Action: Continued Atorvastatin Calcium (Atorvastatin Calcium) 40 Mg Tablet, 40 MG PO HS, (Reported) Entered as Reported by: CATHY PARRA on 04/09/23 1318 Last Action: Continued Clopidogrel Bisulfate (Clopidogrel) 75 Mg Tablet, 75 MG PO DAILY, (Reported) Entered as Reported by: Ryanne Bruno on 03/21/23 1451 Last Action: Continued Metoprolol Succinate (Metoprolol Succinate) 25 Mg Tab.er.24h, 12.5 MG PO HS, (Reported) Entered as Reported by: ARTIE BARAKAT on 03/08/20 104 Last Action: Continued Tamsulosin HCl (Flomax) 0.4 Mg Cap, 0.4 MG PO BID, (Reported) Entered as Reported by: ARTIE BARAKAT on 03/08/20 104 Last Action: Continued Discontinued Medications Atorvastatin Calcium (Atorvastatin Calcium) 80 Mg Tablet, 80 MG PO HS, (Reported) Discontinued Reason: No Longer Taking Entered as Reported by: ARTIE BARAKAT on 03/08/20 1040 Last Action: Discontinued Hydrocodone/Acetaminophen (Hydrocodone-Acetamin 5-325 mg) 5 Mg-325 Mg Tablet, 1 EACH PO Q4H PRN for PAIN-MODERATE (5-7) Discontinued Reason: No Longer Taking Prescribed by: BIRD JOHNSON on 03/22/23 1245 Last Action: Discontinued Physical Exam-Cardiology Physical Exam Vital Signs/I&O 04/09/23 04/10/23 04/10/23 04/10/23 23:44 01:00 03:35 07:04 Temp 36.3 36.5 Pulse 74 75 63 61 Resp 12 16 B/P (MAP) 124/65 (84) 119/57 (77) Pulse Ox 92 93 O2 Delivery Room Air Room Air 04/10/23 07:36 Temp 36.6 Pulse 63 Resp 18 B/P (MAP) 113/72 (86) Pulse Ox 93 O2 Delivery Room Air 04/10/23 00:00 Intake Total 1300 ml Output Total 275 ml Balance 1025 ml Capillary Refill : Less Than 3 Seconds Constitutional: AAO x 3, well-developed, well-nourished HEENT: PERRL, hearing is well preserved, oral hygience is good Neck: No carotid bruit; carotid pulses are 2 + bilaterally Respiratory: No accessory muscle use, No respiratory distress; chest expansion is symmetric, chest is bilaterally symmetric, lungs clear to auscultation Cardiovascular: regular rate-rhythm; No JVD; S1 and S2 Gastrointestinal: No tender; soft, round, audible bowel sounds Extremities: no lower extremity edema bilateral Neurologic/Psychiatric: other (moves all extremities) Skin: No rash on exposed areas, No ulcerations on exposed areas Data Review Labs Laboratory Tests 04/10/23 05:35: Triglycerides Level 79, Cholesterol Level 103, LDL Cholesterol Direct 66, VLDL Cholesterol 16, HDL Cholesterol 25L Radiology NAME: ANDI ABRAHAM MED REC#: [id number] PT STATUS: ADM Arash : 1955 PHYSICIAN: ARANZA MONDRAGON MD ADMIT DATE: 04/09/23/ICU Draft Date of Exam:04/09/23 CHEST 1 VIEW, AP/PA ONLY HISTORY: Chest pain TECHNIQUE: Frontal view the chest COMPARISON: None FINDINGS: Lung volumes are normal. There is hazy airspace opacity at the lung bases, could be due to overlying soft tissue. There is no large effusion or pneumothorax seen. The cardiac silhouette is prominent, may be accentuated by technique. A panel monitor device is noted. IMPRESSION: 1. Hazy basilar airspace opacities, may be due to atelectasis, infiltrate, or overlying soft tissue. 2. Mild cardiomegaly, likely accentuated by portable technique. Dictated on workstation # [id number] Dict: 04/09/23 0643 Trans: 04/09/[address] [facility] [id number] Interpreted by: ABDON JOHNSON MD Electronically signed by: ECG Impression ECG Initial ECG Rhythm: Normal Sinus A/P-Cardiology Assessment/Admission Diagnosis Chest pain - undetermined etiology Newly dx PAF on ILR transmission of 03-15-23 - S/P ILR implanted 11-21-21 - Cardizem CD and Eliquis started on 04-08-23 (patient has not started Rx yet) CAD - Cor stents x 4 in [place] in 2013 - details unknown - MPI of 04-20-21 showed Lateral wall myocardial infarction without significant ischemia. Lateral wall akinesis. Well preserved global left ventricular systolic function with a calculated ejection fraction of 73%. - Echocardiogram of 04-18-21 showed LVEF 50-55%. LA mildly dilated. PASP 25-30 mmHg - Echocardiogram of 03-28-23 showed mild concentric hypertrophy. LVEF 55-60% Leg claudication - ANAND with segmentals of 04-12-21 does not indicated any signif PAD of the legs bilat Abnromal ECG - ECG on 04/03/21: NSR, poor R-wave progression, cannot exclude old IMI HLD - statin tx - followed by PCP Carotid dz - mild bilat carotid plaque per u/s of 11-07-21 Suspected MARCIA - awaiting sleep study Newly dz prostate cancer - receiving Lupron injections - being managed by Dr. Aguilar Discussion and Recomendations New onset of chest pain with a previous h/o CAD with stent placement and newly dx PAF He reports he is very concerned d/t his stents being nearly 10 yrs old and new onset of chest discomfort with indigestion which is uncommon for him We are advising cardiac cath. We have discussed the procedure, risks, benefits and potential complications. He provides informed consent We will proceed later today Continue Plavix Start Eliquis following cardiac cath d/t newly dx PAF Continue BB, statin Start Cardizem CD 360mg at hs d/t newly dx PAF seen during HS Advise he continue to keep his appt for sleep study as out pt Further recs will be based on his hospital course We would like to thank medical services for this consult Plan of care discussed with Dr. Pascal Clinical Quality Measures AMI/AHF: ASA po Prior to arrival: JOAQUINA Boland Apr 09, 2023 07:53
[2023-04-09] MEDS ORDERED: LIDOCAINE 1% INJ 20 ML VIAL ONE (08:59)
[2023-04-09] MEDS ORDERED: NS IV 1000 ML 1,000 ML ONE (08:59)
[2023-04-09] MEDS ORDERED: HEParin (CATH LAB) 2,000 ML IV ONE (08:59)
[2023-04-09] MEDS ORDERED: dilTIAZem ER 180 MG CAPSULE PO SCH ×2 (09:00→21:00)
--- NOTE | 2023-04-09 09:08 | History & Physical ---
ISAAC MCELROY 04/09/23 0908: History of Present Illness History of Present Illness Reason for visit/HPI HPI: 68-year-old male presents to the ED with 4 episodes of intermittent chest pain, nausea, SOB, and neck pain. The first episode occurred at 7 pm last night & resolved without any issue. Continued to have more episodes, and with each subsequent episode, his BP increased. The last episode occurred just prior coming to the ED. Patient described his neck pain as left-sided & stiff that radiated down to his left shoulder. He was experiencing chest pain when he came in and was still having some discomfort, but it has improved. Currently having leg pain and says it's due to his degenerative disc disease. Has a history of a cardiac stent placement in 2013. Will be started on two new home medications, diltiazem & Eliquis. Is currently on Plavix. Patient reports that he will be undergoing cardiac catheterization today. Date of Admission Apr 09, 2023 at 02:58 Date Seen by a Provider: Apr 09, 2023 Time Seen by a Provider: 09:00 I consulted on this patient on 04/09/23 09:01 Attending Physician Dayton Gonzalez DO Admitting Physician Admitting Physician: Gabrielle Means DO Attending Physician: Gabrielle Means DO Consult Allergies and Home Medications Allergies Coded Allergies: ibuprofen (Verified Allergy, Unknown, 03/22/23) Patient Home Medication List Home Medication List Reviewed: Yes Acetaminophen (Tylenol Extra Strength) 500 Mg Tablet, 1,000 MG PO Q8H PRN for PAIN-MILD (1-4), (Reported) Entered as Reported by: CATHY PARRA on 04/09/23 1318 Last Action: Continued Atorvastatin Calcium (Atorvastatin Calcium) 40 Mg Tablet, 40 MG PO HS, (Reported) Entered as Reported by: CATHY PARRA on 04/09/23 1318 Last Action: Continued Clopidogrel Bisulfate (Clopidogrel) 75 Mg Tablet, 75 MG PO DAILY, (Reported) Entered as Reported by: Ryanne Bruno on 03/21/23 1451 Last Action: Continued Metoprolol Succinate (Metoprolol Succinate) 25 Mg Tab.er.24h, 12.5 MG PO HS, (Reported) Entered as Reported by: ARTIE BARAKAT on 03/08/20 1040 Last Action: Continued Tamsulosin HCl (Flomax) 0.4 Mg Cap, 0.4 MG PO BID, (Reported) Entered as Reported by: ARTIE BARAKAT on 03/08/20 1040 Last Action: Continued Discontinued Medications Atorvastatin Calcium (Atorvastatin Calcium) 80 Mg Tablet, 80 MG PO HS, (Reported) Discontinued Reason: No Longer Taking Entered as Reported by: ARTIE BARAKAT on 03/08/20 1040 Last Action: Discontinued Hydrocodone/Acetaminophen (Hydrocodone-Acetamin 5-325 mg) 5 Mg-325 Mg Tablet, 1 EACH PO Q4H PRN for PAIN-MODERATE (5-7) Discontinued Reason: No Longer Taking Prescribed by: BIRD JOHNSON on 03/22/23 1245 Last Action: Discontinued Past Upuiwjm-Tznhfg-Pzqjnp Hx Patient Social History Tobacco Use?: No Smoking Status: Never a Smoker Smokeless Tobacco Frequency: Never a User Use of E-Cig and/or Vaping Torsten: Never a User Substance use?: No Alcohol Use?: No Pt feels they are or have been: No Immunizations Up To Date Date of Influenza Vaccine: May 28, 2022 First/Initial COVID19 Vaccinat: SPRING 2020 Second COVID19 Vaccination Miguel: SPRING 2020 Tetanus Booster (TDap): Less Than 5 Years Hepatitis A: No Hepatitis B: No Date of Pneumonia Vaccine: May 28, 2022 Seasonal Allergies Seasonal Allergies: Yes Current Status Advance Directives: Yes Communicates: Verbally Primary Language: Omani Preferred Spoken Language: Omani Is interpretation needed?: No Sensory deficits: Vision impairment Implanted or Applied Medical D: Stents Past Medical History Surgeries: Bladder Surgery, Coronary Stent, Orthopedic Currently Using CPAP: No Currently Using BIPAP: No Coronary Artery Disease, High Cholesterol, Hypertension, Palpitations, Syncope Sexually Transmitted Disease: No Benign Prostatic Hyperpl, Prostate Problems Degenerate Disk Disease, Arthritis, Fibromyalgia, Back Injury, Chronic Back Pain, Fractures Tinnitis Loss of Vision: Denies Hearing Impairment: Hard of Hearing Bladder, Prostate, Skin What Type of Treatment Did You: Surgical Intervention, Other Blood Disorders: No Adverse Reaction/Blood Tranf: No Family Medical History SOCIAL HISTORY: -SMOKED AT LEAST 1 PPD, QUIT 02/2013 -ETOH--DENIES USE -DRUGS--DENIES USE PAST SURGICAL HISTORY: -CERVICAL SPINE SURGERY -CARDIAC CATHS WITH STENTS X 4 IN 201202/13/2006--CARDIAC CATH DONE BY DR. MALIN: -MILD CORONARY ARTERY DISEASE, WITH EF 60%. NO INTERVENTION STRESS TEST DONE BY DR. MALIN 04/18/21: -CONCLUSIONS: 1. Lateral wall myocardial infarction without significant ischemia. 2. Lateral wall akinesis. 3. Well preserved global left ventricular systolic function with a calculated ejection fraction of 73%. 11/21/21--LOOP RECORDER PLACED BY DR. MALIN: PROCEDURE: Implantable loop recorder implantation. INDICATIONS: The patient is a 66-year-old man who has been experiencing palpitations that are infrequent, but quite bothersome. Implantable loop recorder implantation was carried out today after having obtained an informed consent. DESCRIPTION OF PROCEDURE: [facility] The left prepectoral area was prepared and draped in the usual sterile fashion. Lidocaine 1% was used for local anesthesia. We used the tools provided with the [employer] LINQ II device to make a pocket anterior to the fourth intercostal space on the left side into which the device was placed and the wound edges were closed using Dermabond and Steri-Strips. The serial number of the device is [id number]. He tolerated the procedure well. 03/10/2020--TURBT/ RESECTION OF BLADDER TUMORS BY DR. CELESTIN 09/28/2020--TURBT / RESECTION OF MULTIPLE BLADDER TUMORS BY DR. CELESTIN 11/15/22--TURBT / RESECTION OF BLADDER TUMORS AND PROSTATE BIOPSY BY DR. BACA AT [facility] Review of Systems Constitutional: no symptoms reported EENTM: no symptoms reported Respiratory: see HPI Cardiovascular: see HPI Gastrointestinal: no symptoms reported Genitourinary: no symptoms reported Musculoskeletal: back pain, other (Left leg pain) Skin: no symptoms reported Psychiatric/Neurological: No Symptoms Reported Physical Exam Vital Signs Vital Signs - First Documented 04/09/23 04/09/23 00:55 03:59 Temp 37.2 Pulse 78 Resp 14 B/P (MAP) 136/85 Pulse Ox 95 O2 Delivery Room Air FiO2 21 Capillary Refill : Less Than 3 Seconds Height, Weight, BMI Height: '" Weight: lbs. oz. kg; 36.24 BMI Method: General Appearance: No Apparent Distress, WD/WN Eyes: Bilateral Eye Normal Inspection, Bilateral Eye PERRL, Bilateral Eye EOMI HEENT: PERRL/EOMI, Pharynx Normal Respiratory: Normal Breath Sounds, No Accessory Muscle Use, No Respiratory Distress Cardiovascular: Regular Rate, Rhythm, No Edema, No Gallop, No JVD, No Murmur, Normal Peripheral Pulses Extremity: Normal Capillary Refill Neurologic/Psychiatric: Alert, Oriented x3, Normal Mood/Affect Skin: Normal Color, Warm/Dry Assessment/Plan Assessment and Plan Assessment: Chest pain CAD Hyperlipidemia taking atorvastatin Afib taking diltiazem & Eliquis Hx of cardiac stent placement Skin cancer Prostate cancer taking Lupron injections Hx of bladder cancer surgery Possible MARCIA and has outpatient appt. for it Degenerative disc disease Plan: Status changed to inpatient Continue cardiac meds & anticoagulants Waiting on director geophysical laboratory results Monitor Admission Diagnosis Admission Status: Inpatient Order (span 2 midnights) Reason for Inpatient Admission: Chest pain, CAD, had cardiac catheterization Clinical Quality Measures AMI/AHF: ASA po Prior to arrival: GABRIELLE Man DO 04/09/232046: Allergies and Home Medications Allergies Coded Allergies: ibuprofen (Verified Allergy, Unknown, 03/22/23) Patient Home Medication List Acetaminophen (Tylenol Extra Strength) 500 Mg Tablet, 1,000 MG PO Q8H PRN for PAIN-MILD (1-4), (Reported) Entered as Reported by: CATHY PARRA on 04/09/23 131 Last Action: Continued Atorvastatin Calcium (Atorvastatin Calcium) 40 Mg Tablet, 40 MG PO HS, (Reported) Entered as Reported by: CATHY PARRA on 04/09/231317 Last Action: Continued Clopidogrel Bisulfate (Clopidogrel) 75 Mg Tablet, 75 MG PO DAILY, (Reported) Entered as Reported by: Ryanne Bruno on 03/21/23 1451 Last Action: Continued Metoprolol Succinate (Metoprolol Succinate) 25 Mg Tab.er.24h, 12.5 MG PO HS, (Reported) Entered as Reported by: ARTIE BARAKAT on 03/08/20 104 Last Action: Continued Tamsulosin HCl (Flomax) 0.4 Mg Cap, 0.4 MG PO BID, (Reported) Entered as Reported by: ARTIE BARAKAT on 03/08/20 104 Last Action: Continued Discontinued Medications Atorvastatin Calcium (Atorvastatin Calcium) 80 Mg Tablet, 80 MG PO HS, (Reported) Discontinued Reason: No Longer Taking Entered as Reported by: ARTIE BARAKAT on 7/14/20 1040 Last Action: Discontinued Hydrocodone/Acetaminophen (Hydrocodone-Acetamin 5-325 mg) 5 Mg-325 Mg Tablet, 1 EACH PO Q4H PRN for PAIN-MODERATE (5-7) Discontinued Reason: No Longer Taking Prescribed by: BIRD JOHNSON on 03/22/23 1245 Last Action: Discontinued Assessment/Plan Assessment and Plan Problems: (1) Chest pain Status: Acute Qualifiers: Qualified Codes: R07.9 - Chest pain, unspecified (2) History of CAD (coronary artery disease) Status: Acute Admission Diagnosis Admission Status: Inpatient Order (span 2 midnights) Reason for Inpatient Admission: cath Supervisory-Addendum Brief Verification & Attestation Participated in pt care: history, MDM, physical Personally performed: exam, history, MDM, supervision of care Care discussed with: Medical Student Procedures: n/a Results interpretation: Verified all documentation Verification and Attestation of Medical Student E/M Service A medical student performed and documented this service in my presence. I reviewed and verified all information documented by the medical student and made modifications to such information, when appropriate. I personally performed the physical exam and medical decision making. Gabrielle Means Apr 09, 2023,20:46 ISAAC MCELRYO Apr 09, 2023 09:08 GABRIELLE MEANS DO Apr 09, 2023 20:47
[2023-04-09] MEDS ORDERED: fentaNYL INJECTION 100 MCG/2 ML VIAL ONE (09:10)
[2023-04-09] MEDS ORDERED: MIDAZOLAM INJ 5 MG/5 ML VIAL ONE (09:10)
--- NOTE | 2023-04-09 09:35 | Consultation-Cardiology ---
HPI-Cardiology Cardiology Consultation: Date of Consultation 04/09/23 Time Seen by a Provider: 09:30 Date of Admission Attending Physician Dayton Gonzalez DO Admitting Physician Admitting Physician: Gabrielle Cordova DO Attending Physician: Gabrielle Cordova DO Consulting Physician LOYDA MALIN MD, MA, FACP, FACC, [facility] [place], CCDS HPI: Chief Complaint: Chest pain Mr. Abraham is a 68 yr old male admitted to ICU 3 from the ED with c/o CP. He reports yesterday evening around 7:30 pm. he developed abdominal bloating, chest pressure, belching, generally feeling unwell. He reports the discomfort lasted for longer than 30 minutes and then gradually resolved. He reports than again around 9:30 p.m. the same discomfort came back. He reports with both episodes his blood pressure was high, 170's systolic. He reports he generally felt unwel l. He denies any SOB or palpitations. He reports he then decided to come to the ED. He reports that he has had some continued chest pressure and SOB during the night with some orthopnea. No c/o LE swelling. He reports he is very concerned about his stents since he has had to stop his Plavix d/t recent procedures for skin cancer removal. Review of Systems-Cardiology Review of Systems Constitutional: No chills, No fever Eyes: No vision change Ears/Nose/Throat: No epistaxis Respiratory: As described under HPI Cardiovascular: As described under HPI Gastrointestinal: As described under HPI; No constipation, No diarrhea, No vomiting Genitourinary: No dysuria, No hematuria Musculoskeletal: no symptoms reported Skin: No rash on exposed areas, No ulcerations on exposed areas Psychiatric/Neurological: No anxiety, No depression, No seizure, No focal weakness, No syncope Hematologic: No bleeding abnormalities [id number] Hx Patient Social History Smoking Status: Never a Smoker 2nd Hand Smoke Exposure: No Alcohol Use?: No Pt feels they are or have been: No Immunizations Up To Date Tetanus Booster (TDap): Less than 5yrs Date of Pneumonia Vaccine: May 28, 2022 Date of Influenza Vaccine: May 28, 2022 Past Medical History PMH As described under Assessment. Family Medical History Family Medical History: Reports history of father having CAD. Allergies and Home Medications Allergies Coded Allergies: ibuprofen (Verified Allergy, Unknown, 03/22/23) Patient Home Medication List Home Medication List Reviewed: Yes Atorvastatin Calcium (Atorvastatin Calcium) 80 Mg Tablet, 80 MG PO HS, (Reported) Entered as Reported by: ARTIE BARAKAT on 03/08/20 1040 Clopidogrel Bisulfate (Clopidogrel) 75 Mg Tablet, 75 MG PO DAILY, (Reported) Entered as Reported by: Ryanne Bruno on 03/21/23 1451 Hydrocodone/Acetaminophen (Hydrocodone-Acetamin 5-325 mg) 5 Mg-325 Mg Tablet, 1 EACH PO Q4H PRN for PAIN-MODERATE (5-7) Prescribed by: BIRD JOHNSON on 03/22/23 1245 Metoprolol Succinate (Metoprolol Succinate) 25 Mg Tab.er.24h, 12.5 MG PO HS, (Reported) Entered as Reported by: ARTIE BARAKAT on 03/08/20 1040 Tamsulosin HCl (Flomax) 0.4 Mg Cap, 0.4 MG PO 1800, (Reported) Entered as Reported by: ARTIE BARAKAT on 03/08/20 1040 Physical Exam-Cardiology Physical Exam Vital Signs/I&O 04/09/23 04/09/23 04/09/23 04/09/23 00:55 01:02 01:49 03:09 Temp 37.2 37.2 Pulse 78 78 69 Resp 14 14 B/P (MAP) 136/85 136/85 (102) 137/70 (102) Pulse Ox 95 95 95 O2 Delivery Room Air Room Air Room Air Room Air 04/09/23 04/09/23 04/09/23 04/09/23 03:11 03:15 03:15 03:30 Pulse 70 65 63 Resp 29 9 B/P (MAP) 125/65 (96) 119/98 (107) Pulse Ox 95 93 93 O2 Delivery Room Air Room Air Room Air 04/09/23 04/09/23 04/09/23 04/09/23 03:30 03:45 03:59 04:00 Temp 36.3 36.3 Pulse 66 63 65 67 Resp 22 10 10 B/P (MAP) 137/70 (92) 122/65 (98) 109/66 (82) Pulse Ox 91 92 95 89 O2 Delivery Room Air Room Air Room Air FiO2 21 04/09/23 04/09/23 04/09/23 04/09/23 04:15 04:30 04:45 05:00 Pulse 64 66 66 73 Resp 9 21 20 19 B/P (MAP) 126/70 (90) 126/64 (84) 134/73 (94) 148/78 (95) Pulse Ox 92 95 95 92 O2 Delivery Room Air Room Air Room Air Room Air 04/09/23 04/09/23 04/09/23 06:00 07:07 07:48 Temp 36.0 Pulse 70 64 70 Resp 16 14 B/P (MAP) 125/63 (88) 120/65 (83) Pulse Ox 92 92 O2 Delivery Room Air Room Air Capillary Refill : Less Than 3 Seconds Constitutional: AAO x 3, well-developed, well-nourished HEENT: PERRL, hearing is well preserved, oral hygience is good Neck: No carotid bruit; carotid pulses are 2 + bilaterally Respiratory: No accessory muscle use, No respiratory distress; chest expansion is symmetric, chest is bilaterally symmetric, lungs clear to auscultation Cardiovascular: regular rate-rhythm; No JVD; S1 and S2 Gastrointestinal: No tender; soft, round, audible bowel sounds Extremities: no lower extremity edema bilateral Neurologic/Psychiatric: other (moves all extremities) Skin: No rash on exposed areas, No ulcerations on exposed areas Data Review Labs Laboratory Tests 04/09/23 00:56: White Blood Count 8.6, Red Blood Count 4.57, Hemoglobin 14.6, Hematocrit 44, Mean Corpuscular Volume 95, Mean Corpuscular Hemoglobin 32, Mean Corpuscular Hemoglobin Concent 34, Red Cell Distribution Width 12.3, Platelet Count 210, Mean Platelet Volume 9.3, Immature Granulocyte % (Auto) 0, Neutrophils (%) (Auto) 59, Lymphocytes (%) (Auto) 27, Monocytes (%) (Auto) 11, Eosinophils (%) (Auto) 3, Basophils (%) (Auto) 0, Neutrophils # (Auto) 5.1, Lymphocytes # (Auto) 2.4, Monocytes # (Auto) 0.9, Eosinophils # (Auto) 0.2, Basophils # (Auto) 0.0, Immature Granulocyte # (Auto) 0.0, Prothrombin Time 14.3, INR Comment 1.1, Activated Partial Thromboplast Time 36H, Sodium Level 141, Potassium Level 3.6, Chloride Level 108H, Carbon Dioxide Level 24, Anion Gap 9, Blood Urea Nitrogen 10, Creatinine 1.02, Estimat Glomerular Filtration Rate 80, BUN/Creatinine Ratio 10, Glucose Level 127H, Calcium Level 8.6, Corrected Calcium 8.7, Magnesium Level 2.0, Total Bilirubin 0.5, Aspartate Amino Transf (AST/SGOT) 22, Alanine Aminotransferase (ALT/SGPT) 19, Alkaline Phosphatase 87, Myoglobin 33.1, Troponin I < 0.028, Total Protein 7.0, Albumin 3.9 04/09/23 04:11: Troponin I < 0.028 A/P-Cardiology Assessment/Admission Diagnosis Chest pain - consistent with unstable Newly dx PAF on ILR transmission of 03-15-23 - S/P ILR implanted 11-21-21 - Cardizem CD and Eliquis started on 04-08-23 (patient has not started Rx yet) CAD - Cor stents x 4 in [place] in 2012 - details unknown - MPI of 04-20-21 showed Lateral wall myocardial infarction without significant ischemia. Lateral wall akinesis. Well preserved global left ventricular systolic function with a calculated ejection fraction of 73%. - Echocardiogram of 04-18-21 showed LVEF 50-55%. LA mildly dilated. PASP 25- 30mmHg - Echocardiogram of 03-28-23 showed mild concentric hypertrophy. LVEF 55-60% Leg claudication - ANAND with segmentals of 04-12-21 does not indicated any signif PAD of the legs bilat Abnromal ECG - ECG on 04/03/21: NSR, poor R-wave progression, cannot exclude old IMI HLD - statin tx - followed by PCP Carotid dz - mild bilat carotid plaque per u/s of 11-07-21 Suspected MARCIA - awaiting sleep study Newly dz prostate cancer - receiving Lupron injections - being managed by Dr. Aguilar Discussion and Recomendations New onset of chest pain with a previous h/o CAD with stent placement and newly dx PAF Given symptoms of unstable angina, we are advising urgent cardiac cath. We have discussed the procedure, risks, benefits and potential complications. He provides informed consent We will proceed later today Continue Plavix Start Eliquis following cardiac cath d/t newly dx PAF Continue BB, statin Start Cardizem CD 360mg at hs d/t newly dx PAF seen during HS Advise he continue to keep his appt for sleep study as out pt Further recs will be based on his hospital course We would like to thank medical services for this consult Clinical Quality Measures AMI/AHF: ASA po Prior to arrival: LOYDA Woodward MD FACP FAC CCDS Apr 09, 2023 09:35
--- NOTE | 2023-04-09 09:36 | Cardiac Procedure Note-CS/ASA ---
Pre-Procedure Note Pre-Op Procedure Note Date of Available H&P: Apr 09, 2023 Date H&P Reviewed: Apr 09, 2023 Time H&P Reviewed: 09:30 History & Physical: H&P Reviewed, No changes noted Moderate Sedation PreProcedure ASA Score 3 Airway Lungs Heart ASA score ASA 1: a normal healthy patient ASA 2: a patient with a mild systemic disease (mid diabetes, controlled hypertension, obesity ASA 3: a patient with a severe systemic disease that limits activity (angina, COPD, prior Myocardial infarction) ASA 4: a patient with an incapacitating disease that is a constant threat to life (CHF, renal failure) ASA 5: a moribund patient not expected to survive 24 hrs. (ruptured aneurysm) ASA 6: a declared brain- patient whose organs are being harvested. For emergent operations, add the letter E after the classification Mallampati Classification Grade 2 Sedation Plan Analgesia, Amnesia, Plan communicated to team members The patient is an appropriate candidate to undergo the planned procedure, sedation, and anesthesia. The patient immediately re-assessed prior to indication. LOYDA MALIN MD FACP FAC CCDS Apr 09, 2023 09:35
[2023-04-09] MEDS ORDERED: VERAPAMIL 5 MG/2 ML (CALAN) VIAL IV ONE (09:43)
[2023-04-09] MEDS ORDERED: HEParin 1000 UNIT/ML (10ML VIAL) FOR BOLUS ONE (09:43)
[2023-04-09] MEDS ORDERED: NITRO DRIP 25000 MCG/D5W 250 ML IV ONE (09:43)
[2023-04-09] MEDS: NS IV 1000 ML 1,000 ML IV SCH (11:57)
[2023-04-09] MEDS: CLOPIDOGREL 75 MG TABLET PO SCH (11:57)
[2023-04-09] MEDS: APIXABAN 5 MG TABLET PO SCH ×2 (12:16→20:18)
[2023-04-09] MEDS ORDERED: POTASSIUM CHLORIDE 20 MEQ TABLET PO NR (12:30)
[2023-04-09] MEDS ORDERED: ACET-2267 PO (13:18)
[2023-04-09] MEDS ORDERED: ATOR40TA70 PO (13:18)
[2023-04-09] MEDS: CATHETER FLUSH 10 ML SYR IVP SCH ×2 (14:35→21:58)
--- NOTE | 2023-04-09 15:12 | Cardiac Cath Report ---
CARDIAC CATHETERIZATION DATE OF PROCEDURE: 04-09-23 INDICATION: Chest pain, CAD HISTORY: The patient is a 68 year old male with chest pain, suspected unstable angina, and h/o CAD and h/o cor stenting PROCEDURES PERFORMED: 1. Cor angio 2. LHC 3. LV angio PROCEDURE DESCRIPTION: After informed consent and in the fasting state, left heart catheterization was performed through the R radial artery utilizing a 6 Somali system by percutaneous approach. 5F JL3.5 for LCA, 5F JR4 for RCA, 5F pigtail for LHC and LV angio. All catheters were exchanged over a guidewire. HEMODYNAMICS: LVEDP 19 mmHg; no significant pressure gradient on pullback across the aortic valve CORONARY ANGIOGRAPHY: Left main coronary artery: Ok Left anterior descending coronary artery: Patent proximal and mid vessel stent; 50% ostial in D3 Left circumflex coronary artery: Patent prox stent in LCX-OM system Right coronary artery: Dominant, no significant disease LV Angio VILLA projection only: no wall motion abnormality. LVEF 60% IMPRESSION: 1. Mild to mod CAD. Patent stents in prox and mid LAD and LCx 2. LVEDP 19 mmHg 3. LVEF 60% LOYDA MALIN MD FACP [facility] Apr 09, 2023 15:11
[2023-04-09] MEDS ORDERED: diphenhydrAMINE INJ 50 MG/ML VIAL IVP PRN (20:15)
[2023-04-09] MEDS ORDERED: MELATONIN 3 MG TABLET PO PRN (20:15)
[2023-04-09] MEDS ORDERED: ANTACID SUSPENSION 30 ML UDC PO PRN (20:15)
[2023-04-09] MEDS ORDERED: polyethylene glycoL POWDER 17 GM (MIRALAX) PACK PO PRN (20:15)
[2023-04-09] MEDS ORDERED: BISACODYL 10 MG SUPPOSITORY PR PRN (20:15)
[2023-04-09] MEDS ORDERED: ONDANSETRON 4 MG/2 ML (SDV) Z0FRAN IV PRN (20:15)
[2023-04-09] MEDS ORDERED: ACETAMINOPHEN 325 MG TABLET PO PRN (20:15)
[2023-04-09] MEDS ORDERED: MILK OF MAGNESIA 400 MG/5 ML 30 ML UDC PO PRN (20:15)
[2023-04-09] MEDS ORDERED: LACTULOSE SYRUP 10GM/15ML 30ML UDC PO PRN (20:15)
[2023-04-09] MEDS ORDERED: ACETAMINOPHEN 500 MG TABLET PO PRN (20:15)
[2023-04-09] MEDS: SENNOSIDES 8.6 MG (SENOKOT) TAB PO SCH (21:54)
[2023-04-09] MEDS: TAMSULOSIN 0.4 MG (FLOMAX) CAP PO SCH (21:54)
[2023-04-09] MEDS: DOCUSATE SODIUM 100 MG CAPSULE PO SCH (21:57)
[2023-04-10 03:35] VITALS: BP 119/57
[2023-04-10] MEDS: CATHETER FLUSH 10 ML SYR IVP SCH (05:15)
[2023-04-10] MEDS: NS IV 1000 ML 1,000 ML IV SCH (05:15)
[2023-04-10 05:59] LABS: TRIGLYCERIDES 79 MG/DL (<150); VLDL CHOLESTEROL 16 MG/DL (5-40)
[2023-04-10 06:04] LABS: CHOLESTEROL 103 MG/DL (< 200)
[2023-04-10 06:05] LABS: HDL CHOLESTEROL 25 MG/DL (40-60)
[2023-04-10 07:36] VITALS: BP 113/72
[2023-04-10] MEDS ORDERED: CLOPIDOGREL 75 MG TABLET PO SCH (09:00)
[2023-04-10] MEDS: DOCUSATE SODIUM 100 MG CAPSULE PO SCH (09:12)
[2023-04-10] MEDS: APIXABAN 5 MG TABLET PO SCH (09:12)
[2023-04-10] MEDS: TAMSULOSIN 0.4 MG (FLOMAX) CAP PO SCH (09:12)
[2023-04-10] MEDS: CLOPIDOGREL 75 MG TABLET PO SCH (09:12)
[2023-04-10] MEDS: SENNOSIDES 8.6 MG (SENOKOT) TAB PO SCH (09:12)
--- NOTE | 2023-04-10 10:04 | Progress Note - Cardiology ---
Cardiology SOAP Progress Note Subjective: Lying in bed No c/o CP, SOB, palpitations No c/o discomfort at right radial cardiac cath site Objective: I&O/Vital Signs 04/09/23 04/10/23 04/10/23 04/10/23 23:44 01:00 03:35 07:04 Temp 36.3 36.5 Pulse 74 75 63 61 Resp 12 16 B/P (MAP) 124/65 (84) 119/57 (77) Pulse Ox 92 93 O2 Delivery Room Air Room Air 04/10/23 07:36 Temp 36.6 Pulse 63 Resp 18 B/P (MAP) 113/72 (86) Pulse Ox 93 O2 Delivery Room Air 04/10/23 00:00 Intake Total 1300 ml Output Total 275 ml Balance 1025 ml Side: right (radial) Condition: extremity w/d/p Bruising: mild bruising Constitutional: AAO x 3, well-developed, well-nourished Respiratory: No accessory muscle use, No respiratory distress; chest expansion is symmetric, chest is bilaterally symmetric, lungs clear to auscultation Cardiovascular: regular rate-rhythm; No JVD; S1 and S2 Gastrointestional: No tender; soft, round, audible bowel sounds Extremities: no lower extremity edema bilateral Neurologic/Psychiatric: other (moves all extremities) Skin: No rash on exposed areas, No ulcerations on exposed areas Results/Procedures: Labs Laboratory Tests 04/10/23 05:35: Triglycerides Level 79, Cholesterol Level 103, LDL Cholesterol Direct 66, VLDL Cholesterol 16, HDL Cholesterol 25L Laboratory Tests 04/09/23 00:56 A/P: Assessment: CAD - Cor stents x 4 in [place] in 2012 - details unknown - MPI of 04-20-21 showed Lateral wall myocardial infarction without significant ischemia. Lateral wall akinesis. Well preserved global left ventricular systolic function with a calculated ejection fraction of 73%. - Echocardiogram of 04-18-21 showed LVEF 50-55%. LA mildly dilated. PASP 25- 30mmHg - Echocardiogram of 03-28-23 showed mild concentric hypertrophy. LVEF 55-60% - Cardiac cath of 04-09-23: Mild to mod CAD. Patent stents in prox and mid LAD and LCx. LVEDP 19 mmHg. LVEF 60% Newly dx PAF on ILR transmission of 03-15-23 - S/P ILR implanted 11-21-21 - Cardizem CD and Eliquis started on 04-09-23 Leg discomfort - ANAND with segmentals of 04-12-21 does not indicated any signif PAD of the legs bilat Abnromal ECG - ECG on 04/03/21: NSR, poor R-wave progression, cannot exclude old IMI HLD - statin tx - followed by PCP Carotid dz - mild bilat carotid plaque per u/s of 11-07-21 Suspected MARCIA - awaiting sleep study Newly dz prostate cancer - receiving Lupron injections - being managed by Dr. Aguilar Plan: We have discussed his CV issues with him in detail and results of recent cardiac cath Advise continuation of Cardizem for HR control d/t recently dx a-fib with RVR Advise continuation of Eliquis for stroke prophylaxis Advise he continue to keep his appt for sleep study as out pt Ok to discharge home from cardiac stand point with out pt f/u Clinical Quality Measures AMI/AHF: ASA po Prior to arrival: JOAQUINA Boland Apr 10, 2023 10:04
[2023-04-10] MEDS ORDERED: MTP25TSR PO (10:12)
[2023-04-10] MEDS ORDERED: DILT360C26 PO (10:12)
[2023-04-10] MEDS ORDERED: APIX5TAB PO (10:12)
[2023-04-10 11:28] VITALS: BP 119/69
--- NOTE | 2023-04-10 12:13 | Discharge Summary ---
Diagnosis/Chief Complaint Date of Admission Apr 09, 2023 at 12:00 Date of Discharge Discharge Date: Apr 10, 2023 Discharge Diagnosis Assessment: Chest pain CAD Hyperlipidemia taking atorvastatin Afib taking diltiazem & Eliquis Hx of cardiac stent placement Skin cancer Prostate cancer taking Lupron injections Hx of bladder cancer surgery Possible MARCIA and has outpatient appt. for it Degenerative disc disease Plan: Status changed to inpatient Continue cardiac meds & anticoagulants Waiting on radiographer cardiac catheterization results Monitor Discharge Summary Discharge Physical Examination Allergies: Coded Allergies: ibuprofen (Verified Allergy, Unknown, 03/22/23) Vitals & I&Os Vital Signs Date Time Temp Pulse Resp B/P (MAP) Pulse Ox O2 Delivery O2 Flow Rate FiO2 04/10/23 12:41 36.6 64 18 119/69 92 Room Air 04/09/23 08:00 2.00 04/09/23 03:59 21 Hospital Course Was the Problem List Reviewed?: Yes Hospital course: 66-year-old patient presented to the ED with 4 episodes of intermittent chest pain, nausea, SOB, and left-sided neck pain. His first epi sode occurred 7 pm on 04/09/23, and had three more episodes, with his last one happening right before he went to the ED. With each subsequent episode, he experienced more chest pain and his BP increased up to 166/100. Patient was admitted on 04/09/23 with chest pain and a history of CAD with a history of cardiac stent placement in 2012, newly dx PAF (03/15/23), newly diagnosed pros somers cancer (Lupron injections), and possible MARCIA (awaiting sleep study). During his stay, the patient was started on apixaban, diltiazem, atorvastatin, and clopidogrel. His BP was stable and his other vitals and blood work were uneventful. Patient did receive a cardiac catheterization that showed mild to mod CAD, patent stents in prox, mid LAD, and LCx, LVEDP 19 mmhg, and LVEF 60%. He is on two new home meds: Cardizem for HR control for recently dx Afib with RVR, and Eliquis for stroke prophylaxis. Overall, patient had a great recovery with no further complications and was discharged on 04/10/23. Labs (last 24 hrs) Laboratory Tests 04/09/23 00:56: White Blood Count 8.6, Red Blood Count 4.57, Hemoglobin 14.6, Hematocrit 44, Mean Corpuscular Volume 95, Mean Corpuscular Hemoglobin 32, Mean Corpuscular Hemoglobin Concent 34, Red Cell Distribution Width 12.3, Platelet Count 210, Mean Platelet Volume 9.3, Immature Granulocyte % (Auto) 0, Neutrophils (%) (Auto) 59, Lymphocytes (%) (Auto) 27, Monocytes (%) (Auto) 11, Eosinophils (%) (Auto) 3, Basophils (%) (Auto) 0, Neutrophils # (Auto) 5.1, Lymphocytes # (Auto) 2.4, Monocytes # (Auto) 0.9, Eosinophils # (Auto) 0.2, Basophils # (Auto) 0.0, Immature Granulocyte # (Auto) 0.0, Prothrombin Time 14.3, INR Comment 1.1, Activated Partial Thromboplast Time 36H, Sodium Level 141, Potassium Level 3.6, Chloride Level 108H, Carbon Dioxide Level 24, Anion Gap 9, Blood Urea Nitrogen 10, Creatinine 1.02, Estimat Glomerular Filtration Rate 80, BUN/Creatinine Ratio 10, Glucose Level 127H, Calcium Level 8.6, Corrected Calcium 8.7, Magnesium Level 2.0, Total Bilirubin 0.5, Aspartate Amino Transf (AST/SGOT) 22, Alanine Aminotransferase (ALT/SGPT) 19, Alkaline Phosphatase 87, Myoglobin 33.1, Troponin I < 0.028, Total Protein 7.0, Albumin 3.9 04/09/23 04:11: Troponin I < 0.028 04/10/23 05:35: Triglycerides Level 79, Cholesterol Level 103, LDL Cholesterol Direct 66, VLDL Cholesterol 16, HDL Cholesterol 25L Pending Labs Laboratory Tests 04/09/23 00:56: White Blood Count 8.6, Red Blood Count 4.57, Hemoglobin 14.6, Hematocrit 44, Mean Corpuscular Volume 95, Mean Corpuscular Hemoglobin 32, Mean Corpuscular Hemoglobin Concent 34, Red Cell Distribution Width 12.3, Platelet Count 210, Mean Platelet Volume 9.3, Immature Granulocyte % (Auto) 0, Neutrophils (%) (Auto) 59, Lymphocytes (%) (Auto) 27, Monocytes (%) (Auto) 11, Eosinophils (%) (Auto) 3, Basophils (%) (Auto) 0, Neutrophils # (Auto) 5.1, Lymphocytes # (Auto) 2.4, Monocytes # (Auto) 0.9, Eosinophils # (Auto) 0.2, Basophils # (Auto) 0.0, Immature Granulocyte # (Auto) 0.0, Prothrombin Time 14.3, INR Comment 1.1, A ctivated Partial Thromboplast Time 36, Sodium Level 141, Potassium Level 3.6, Chloride Level 108, Carbon Dioxide Level 24, Anion Gap 9, Blood Urea Nitrogen 10, Creatinine 1.02, Estimat Glomerular Filtration Rate 80, BUN/Creatinine Ratio 10, Glucose Level 127, Calcium Level 8.6, Corrected Calcium 8.7, Magnesium Level 2.0, Total Bilirubin 0.5, Aspartate Amino Transf (AST/SGOT) 22, Alanine Aminotransferase (ALT/SGPT) 19, Alkaline Phosphatase 87, Myoglobin 33.1, Troponin I < 0.028, Total Protein 7.0, Albumin 3.9 04/09/23 04:11: Troponin I < 0.028 04/10/23 05:35: Triglycerides Level 79, Cholesterol Level 103, LDL Cholesterol Direct 66, VLDL Cholesterol 16, HDL Cholesterol 25 Discharge Home Medications: Active Scripts Active Cardizem Cd (Diltiazem HCl) 360 Mg Cap.er.24h 360 Mg PO DAILY Metoprolol Succinate 25 Mg Tab.er.24h 25 Mg PO DAILY Eliquis (Apixaban) 5 Mg Tablet 5 Mg PO BID Reported Tylenol Extra Strength (Acetaminophen) 500 Mg Tablet 1,000 Mg PO Q8H PRN Atorvastatin Calcium 40 Mg Tablet 40 Mg PO HS Clopidogrel (Clopidogrel Bisulfate) 75 Mg Tablet 75 Mg PO DAILY Flomax (Tamsulosin HCl) 0.4 Mg Cap 0.4 Mg PO BID Instructions to patient/family Please see electronic discharge instructions given to patient. Diagnosis/Problems Diagnosis/Problems (1) Chest pain Status: Acute Qualifiers: Qualified Codes: R07.9 - Chest pain, unspecified (2) History of CAD (coronary artery disease) Status: Acute Clinical Quality Measures AMI/AHF: ASA po Prior to arrival: WONG Man DO Apr 10, 2023 12:13
--- NOTE | 2023-04-10 12:27 | Progress Note - Cardiology ---
Cardiology SOAP Progress Note Subjective: No cp or palp or syncope No shortness of breath No weakness No n/v/d Objective: I&O/Vital Signs 04/10/23 04/10/23 04/10/23 04/10/23 01:00 03:35 07:04 07:36 Temp 36.5 36.6 Pulse 75 63 61 63 Resp 16 18 B/P (MAP) 119/57 (77) 113/72 (86) Pulse Ox 93 93 O2 Delivery Room Air Room Air 04/10/23 04/10/23 08:15 11:28 Temp 36.6 Pulse 64 Resp 18 B/P (MAP) 119/69 (86) Pulse Ox 92 O2 Delivery Room Air Room Air 04/10/23 00:00 Intake Total 1300 ml Output Total 275 ml Balance 1025 ml Side: right (radial) Condition: extremity w/d/p Bruising: mild bruising Constitutional: AAO x 3, well-developed, well-nourished Respiratory: No accessory muscle use, No respiratory distress; chest expansion is symmetric, chest is bilaterally symmetric, lungs clear to auscultation Cardiovascular: regular rate-rhythm; No JVD; S1 and S2 Gastrointestional: No tender; soft, round, audible bowel sounds Extremities: no lower extremity edema bilateral Neurologic/Psychiatric: other (moves all extremities) Skin: No rash on exposed areas, No ulcerations on exposed areas Results/Procedures: Labs Laboratory Tests 04/10/23 05:35: Triglycerides Level 79, Cholesterol Level 103, LDL Cholesterol Direct 66, VLDL Cholesterol 16, HDL Cholesterol 25L Laboratory Tests 04/09/23 00:56 A/P: Assessment: CAD - Cor stents x 4 in [place] in 2012 - details unknown - MPI of 04-20-21 showed Lateral wall myocardial infarction without significant ischemia. Lateral wall akinesis. Well preserved global left ventricular systolic function with a calculated ejection fraction of 73%. - Echocardiogram of 04-18-21 showed LVEF 50-55%. LA mildly dilated. PASP 25- 30mmHg - Echocardiogram of 03-28-23 showed mild concentric hypertrophy. LVEF 55-60% - Cardiac cath of 04-09-23: Mild to mod CAD. Patent stents in prox and mid LAD and LCx. LVEDP 19 mmHg. LVEF 60% Newly dx PAF on ILR transmission of 03-15-23 - S/P ILR implanted 11-21-21 - Cardizem CD and Eliquis started on 04-09-23 Leg discomfort - ANAND with segmentals of 04-12-21 does not indicated any signif PAD of the legs bilat Abnromal ECG - ECG on 04/03/21: NSR, poor R-wave progression, cannot exclude old IMI HLD - statin tx - followed by PCP Carotid dz - mild bilat carotid plaque per u/s of 11-07-21 Suspected MARCIA - awaiting sleep study Newly dz prostate cancer - receiving Lupron injections - being managed by Dr. Aguilar Plan: We have discussed his CV issues with him in detail and results of recent cardiac cath Advise continuation of Cardizem for HR control d/t recently dx a-fib with RVR Advise continuation of Eliquis for stroke prophylaxis Advise he continue to keep his appt for sleep study as out pt Ok to discharge home from cardiac stand point with out pt f/u Clinical Quality Measures AMI/AHF: ASA po Prior to arrival: LOYDA Woodward MD FACP FAC CCDS Apr 10, 2023 12:27
[2023-04-10 12:41] VITALS: BP 119/69
--- NOTE | 2023-04-10 14:03 | Progress Note ---
ISAAC MCELROY 04/10/23 1403: Progress Note Hospital course: 66-year-old patient presented to the ED with 4 episodes of intermittent chest pain, nausea, SOB, and left-sided neck pain. His first episode occurred 7 pm on 04/09/23, and had three more episodes, with his last one happening right before he went to the ED. With each subsequent episode, he e xperienced more chest pain and his BP increased up to 166/100. Patient was admitted on 04/09/23 with chest pain and a history of CAD with a history of cardiac stent placement in 2012, newly dx PAF (03/15/23), newly diagnosed prostate cancer (Lupron injections), and possible MARCIA (awaiting sleep study). During his stay, the patient was started on apixaban, diltiazem, atorvastatin, and clopidogrel. His BP was stable and his other vitals and blood work were uneventful. Patient did receive a cardiac catheterization that showed mild to mod CAD, patent stents in prox, mid LAD, and LCx, LVEDP 19 mmhg, and LVEF 60%. He is on two new home meds: Cardizem for HR control for recently dx Afib with RVR, and Eliquis for stroke prophylaxis. Overall, patient had a great recovery with no further complications and was discharged on 04/10/23. GABRIELLE MEANS DO 04/10/231958: Supervisory-Addendum Brief Verification & Attestation Participated in pt care: history, MDM, physical Personally performed: exam, history, MDM, supervision of care Care discussed with: Medical Student Procedures: n/a Results interpretation: Verified all documentation Verification and Attestation of Medical Student E/M Service A medical student performed and documented this service in my presence. I reviewed and verified all information documented by the medical student and made modifications to such information, when appropriate. I personally performed the physical exam and medical decision making. Gabrielle Means, Apr 10, 2023,19:59 ISAAC MCELROY Apr 10, 2023 14:03 GABRIELLE MEANS DO Apr 10, 2023 19:59
== END 2023-04-10 12:41 | disposition home or self-care (01) | DRG 287 ==
LOC: EDUNIT# 00:36 → ER 00:38 → ICU 02:58 → OBSVTOIN 12:00 → 4TH 21:02
PROVIDERS: ADMIT Internal Medicine; ATTEND Internal Medicine
PROC: 4A023N7 Measurement of Cardiac Sampling and Pressure, Left Heart, Percutaneous Approach (ICD-10-PCS; principal; 2023-04-09)
PROC: B2111ZZ Fluoroscopy of Multiple Coronary Arteries using Low Osmolar Contrast (ICD-10-PCS; 2023-04-09)
PROC: B2151ZZ Fluoroscopy of Left Heart using Low Osmolar Contrast (ICD-10-PCS; 2023-04-09)
DX: I25.110 Atherosclerotic heart disease of native coronary artery with unstable angina pectoris (principal); I10 Essential (primary) hypertension; I48.0 Paroxysmal atrial fibrillation; E66.01 Morbid (severe) obesity due to excess calories; Z68.35 Body mass index [BMI] 35.0-35.9, adult; I49.3 Ventricular premature depolarization; E78.00 Pure hypercholesterolemia, unspecified; M79.605 Pain in left leg; G47.33 Obstructive sleep apnea (adult) (pediatric); N40.0 Benign prostatic hyperplasia without lower urinary tract symptoms; C61 Malignant neoplasm of prostate; I65.23 Occlusion and stenosis of bilateral carotid arteries; M19.90 Unspecified osteoarthritis, unspecified site; M79.7 Fibromyalgia; M54.9 Dorsalgia, unspecified; G89.29 Other chronic pain; Z87.891 Personal history of nicotine dependence; Z85.51 Personal history of malignant neoplasm of bladder; Z85.828 Personal history of other malignant neoplasm of skin; Z95.5 Presence of coronary angioplasty implant and graft; Z79.02 Long term (current) use of antithrombotics/antiplatelets; Z79.899 Other long term (current) drug therapy
CPT/HCPCS: 36415; 71045; 80053; 80061; 83735; 83874; 84484; 85025; 85610; 85730; 93005; 93041; 93458; 94761

== ENCOUNTER 2023-04-12 05:30 | Outpatient (CLI) | payer MEDICARE, MEDICAID ==
[~2023-04-12] VITALS: Ht 172.7 cm; Wt 109.1 kg
[~2023-04-12 05:30] MED LIST changes: +APIX5TAB PO; +ATOR40TA70 PO; +DILT360C26 PO
== END 2023-04-15 16:27 | disposition home or self-care (01) ==
LOC: PREOP 05:30
PROVIDERS: ATTEND Otolaryngology Otolaryngology/Facial Plastic Surgery
DX: Z01.818 Encounter for other preprocedural examination (principal)

== ENCOUNTER 2023-04-19 06:40 | Day surgery (SDC) | payer MEDICARE, MEDICAID ==
[2023-04-19] VITALS (10 sets, daily range): BP systolic 126–147; BP diastolic 66–77
[~2023-04-19] VITALS: Ht 172.7 cm; Wt 109.1 kg
[2023-04-19] MEDS ORDERED: dexAMETHasone INJ 10 MG/ML 1 ML VIAL ONE (07:32)
[2023-04-19] MEDS ORDERED: fentaNYL INJECTION 100 MCG/2 ML VIAL ONE (07:32)
[2023-04-19] MEDS ORDERED: proPOfol INJECTION 200 MG/20 ML VIAL IV ONE (07:32)
[2023-04-19] MEDS ORDERED: LIDOCAINE 1% w/EPI 1:100,000 20 ML VIAL ONE (07:32)
[2023-04-19] MEDS ORDERED: LIDOCAINE PF 2% 5 ML VIAL ONE (07:32)
[2023-04-19] MEDS ORDERED: ONDANSETRON INJECTION 4 MG/2 ML (SDV) ONE (07:32)
[2023-04-19] MEDS ORDERED: SEVOFLURANE (ULTANE) 15 ML INHAL SOLN ONE (07:32)
[2023-04-19] MEDS ORDERED: MIDAZOLAM INJ 2 MG/2 ML VIAL ONE (07:33)
--- NOTE | 2023-04-19 07:41 | Progress Note-Pre Operative ---
Pre-Operative Progress Note Date of Available H&P: Apr 19, 2023 Date H&P Reviewed: Apr 19, 2023 Time H&P Reviewed: 06:30 History & Physical: H&P Reviewed, Patient Examed, No changes noted Changes from last HP none Pre-Operative Diagnosis: Right Upper Lip Lesion TAMARA NEW MD Apr 19, 2023 07:41
--- NOTE | 2023-04-19 07:42 | Progress Note-Post Operative ---
Post-Operative Progess Note Surgeon (s)/Logistics Account Manager (s) Surgeon TAMARA NEW MD Logistics Account Manager n/a Pre-Operative Diagnosis Right Upper Lip Lesion Post-Operative Diagnosis same Post-Op Procedure Note Date of Procedure: Apr 19, 2023 Name of Procedure Performed: Excision of Right Upper Lip Lesion with INtermediate Repair Description & Findings Description and Findings: n/a Anesthesia Type lma Estimated Blood Loss minimal Packing none. Specimen(s) collected/removed right upper lip lesion to pathology TAMARA NEW MD Apr 19, 2023 07:42
[2023-04-19] MEDS ORDERED: ACETAMINOPHEN 325 MG TABLET PO PRN (07:45)
[2023-04-19] MEDS ORDERED: HYDROcodone/ACETAMINOPHEN 5 MG/325 MG TABLET PO PRN (07:45)
[2023-04-19] MEDS ORDERED: LACTATED RINGERS 1,000 ML 1,000 ML IV PRN (08:15)
[2023-04-19] MEDS ORDERED: LIDOCAINE 1% w/EPI 1:100,000 20 ML VIAL INJ ONE (08:17)
[2023-04-19] MEDS ORDERED: BACITRACIN OINTMENT 28 GM TUBE ONE (08:20)
[2023-04-19] MEDS ORDERED: MUPIROCIN 2% OINTMENT 22 GM TUBE ONE (08:22)
[2023-04-19] MEDS ORDERED: MUPIROCIN 2% OINTMENT 22 GM TUBE TOP ONE (08:26)
--- NOTE | 2023-04-19 08:59 | Anesthesia-General Post-Op ---
General Patient Condition Mental Status/LOC: Same as Preop Cardiovascular: Satisfactory Nausea/Vomiting: Absent Respiratory: Satisfactory Pain: Controlled Complications: Absent Post Op Complications Complications None Follow Up Care/Instructions Patient Instructions None needed. Anesthesia/Patient Condition Patient Condition Patient is doing well, no complaints, stable vital signs, no apparent adverse anesthesia problems. No complications reported per nursing. MAGGIE BLACKWELL CRNA Apr 19, 2023 08:59
[2023-04-19] MEDS ORDERED: ONDANSETRON INJECTION 4 MG/2 ML (SDV) IVP PRN (09:00)
[2023-04-19] MEDS ORDERED: fentaNYL INJECTION 100 MCG/2 ML VIAL IVP ONE (09:00)
[2023-04-19] MEDS ORDERED: ACHD5005 PO (10:06)
== END 2023-04-19 10:45 ==
LOC: SDC 06:40
PROVIDERS: ATTEND Otolaryngology Otolaryngology/Facial Plastic Surgery
DX: C44.01 Basal cell carcinoma of skin of lip (principal); D23.0 Other benign neoplasm of skin of lip; Z79.01 Long term (current) use of anticoagulants
CPT/HCPCS: 87081; 88305; 88331; 88332

== ENCOUNTER 2023-05-15 09:33 | Outpatient (CLI) | payer MEDICARE, MEDICAID | END 2023-05-15 10:00 | LOC: SLEEP 09:33 | PROVIDERS: ATTEND Otolaryngology Otolaryngology/Facial Plastic Surgery | DX: G47.33 Obstructive sleep apnea (adult) (pediatric) (principal); I25.9 Chronic ischemic heart disease, unspecified; R06.83 Snoring | CPT/HCPCS: G0399 ==

== ENCOUNTER → 2023-06-25 | Outpatient (CLI) | payer MEDICARE ==
[~2023-06-25] VITALS: Ht 172.7 cm; Wt 110.0 kg
[~2023-06-25] MED LIST changes: +FURO-124 PO; +POTA10PI2 IV
== END | disposition home or self-care (01) ==
LOC: PREOP 10:52
PROVIDERS: ATTEND Specialist
DX: Z01.818 Encounter for other preprocedural examination (principal)

== ENCOUNTER 2023-07-03 06:00 | Day surgery (SDC) | payer MEDICARE, MEDICAID ==
[~2023-07-03] VITALS: Ht 172 cm; Wt 110.0 kg
[2023-07-03] VITALS (10 sets, daily range): BP systolic 109–134; BP diastolic 54–72
[2023-07-03] MEDS ORDERED: LACTATED RINGERS 1,000 ML 1,000 ML IV PRN (07:00)
[2023-07-03] MEDS ORDERED: proPOfol INJECTION 200 MG/20 ML VIAL IV ONE ×2 (07:16→09:22)
[2023-07-03] MEDS ORDERED: fentaNYL INJECTION 100 MCG/2 ML VIAL ONE ×2 (07:16→09:37)
[2023-07-03] MEDS ORDERED: LIDOCAINE PF 2% 5 ML VIAL ONE (07:16)
--- NOTE | 2023-07-03 08:22 | Progress Note-Pre Operative ---
Pre-Operative Progress Note Date of Available H&P: Jun 26, 2023 Date H&P Reviewed: Jul 03, 2023 Time H&P Reviewed: 08:00 History & Physical: H&P Reviewed, Patient Examed, No changes noted Pre-Operative Diagnosis: prostate cancer Vicky BACA MD Jul 03, 2023 08:22
[2023-07-03] MEDS ORDERED: ONDANSETRON INJECTION 4 MG/2 ML (SDV) ONE (08:30)
[2023-07-03] MEDS ORDERED: PHENYLEPHRINE 100 MCG/ML 10 ML (ANESTHESIA) SYR ONE (08:30)
[2023-07-03] MEDS ORDERED: dexAMETHasone INJ 10 MG/ML 1 ML VIAL ONE (08:30)
[2023-07-03] MEDS ORDERED: SEVOFLURANE (ULTANE) 15 ML INHAL SOLN ONE (08:30)
--- NOTE | 2023-07-03 08:44 | Progress Note-Post Operative ---
Post-Operative Progess Note Surgeon (s)/Tax Manager Public (s) Surgeon Vicky BACA MD Pre-Operative Diagnosis prostate cancer Post-Operative Diagnosis [facility] Procedure & Operative Findings Date of Procedure 07/03/23 Procedure Performed/Findings transperineal placement of gold fiducial markers with TRUS guidance transperineal injection of absorbalbe prostate-rectal spacer using the [employer] home with trus guidance Anesthesia Type general Estimated Blood Loss Estimated blood loss (mL): none Specimens/Packing Specimens Removed none Packing: none Vicky BACA MD Jul 03, 2023 08:44
--- NOTE | 2023-07-03 10:57 | Anesthesia-General Post-Op ---
General Patient Condition Mental Status/LOC: Same as Preop Cardiovascular: Satisfactory Nausea/Vomiting: Absent Respiratory: Satisfactory Pain: Controlled Complications: Absent Post Op Complications Complications None Follow Up Care/Instructions Patient Instructions None needed. Anesthesia/Patient Condition Patient Condition Patient is doing well, no complaints, stable vital signs, no apparent adverse anesthesia problems. No complications reported per nursing. MAGGIE BLACKWELL CRNA Jul 03, 2023 10:57
== END 2023-07-03 10:35 | disposition home or self-care (01) ==
LOC: SDC 06:00
PROVIDERS: ATTEND Specialist
DX: C61 Malignant neoplasm of prostate (principal); Z95.5 Presence of coronary angioplasty implant and graft; Z87.891 Personal history of nicotine dependence
CPT/HCPCS: 55874; 55876; 87081; A4648; C1889

== ENCOUNTER → 2023-07-25 | Outpatient (RCR) | payer MEDICARE, MEDICAID | END | disposition home or self-care (01) | LOC: ONC 07-17 08:55 | PROVIDERS: ATTEND Radiology Radiation Oncology | DX: Z51.0 Encounter for antineoplastic radiation therapy (principal); C61 Malignant neoplasm of prostate | CPT/HCPCS: 77300; 77301; 77334; 77338; 77385 ==